=== PATIENT | female | born 1935 | race Caucasian/White ===

== ENCOUNTER 2017-07-06 19:04 | Emergency (ER) | payer MEDICARE, OTHER, SELFPAY ==
[2017-07-06 19:10] VITALS: BP 157/80; PULSE 98; RESP 20; TEMP 38.3; O2SAT 100; BMI 26.1
[2017-07-06 19:51] VITALS: TEMP 37.8
--- NOTE | 2017-07-06 20:12 | PC.NURSE ---
Choked on her antibiotic capsule this morning at about 9am. States she choked up half the capsule, but still has some residual hoarness of the voice. Pt's lung sounds are clear, but upper airway hoarness is heard upon inspiration and expiration.
--- NOTE | 2017-07-06 20:48 | DI.RAD.S_ITS ---
PROCEDURE: XR CHEST 2V INDICATIONS: 82 year-old female with cough. TECHNIQUE: 2 views of the chest were acquired. COMPARISON: [facility], , CHEST 1 VIEW, 04/23/2016, 6:42. [facility], , CHEST 1 VIEW, 04/23/2013, 10:14. [facility], , CHEST 2 VIEW, 06/21/2012, 14:17. FINDINGS: Surgical changes and devices: None. Lungs and pleura: No pleural effusions or pneumothorax. Lungs are clear. Mediastinum: There is large retrocardiac hiatal hernia. Heart size is normal. Bones and chest wall: No suspicious bony abnormalities. There is nonacute nonunited right mid clavicle fracture. There is superior right humeral head migration with narrowed acromiohumeral interval as before. Soft tissues appear unremarkable. IMPRESSION: 1. Large retrocardiac hiatal hernia. No acute cardiopulmonary disease. 2. Nonacute nonunited right mid clavicle fracture. Right shoulder rotator cuff arthropathy. Dictated by: Sixto Fofana M.D. on 07/06/2017 at 21:26 Approved by: Sixto Fofana M.D. on 07/06/2017 at 21:28
--- NOTE | 2017-07-06 20:48 | ED.URI ---
HPI - URI/Sore Throat <GRAHAM aPlma - Last Filed: 07/06/17 22:35> General Chief Complaint: Upper Respiratory Symptoms Stated Complaint: SAYS THERE IS A PILL STUCK IN HER THROAT Time Seen by Provider: 07/06/17 19:30 History of Present Illness HPI Narrative: 82-year-old female here for complaint of pain into her throat area after swallowing and doxycycline pill this morning and states that it got stuck in her throat for a period time before it was finally swallowed fully. She reports feeling the sensation of burning to that area. She is able to swallow well she denies any drooling. She is able to handle her own secretions. She does speak full sentences. No acute distress. She states that she had worsening cough after swallowing the pill in the burning to the area. She states she has had a cough over the past couple of days. Related Data Home Medications Medication Instructions Recorded Confirmed cyclobenzaprine 5 - 10 mg PO TIDP PRN #0 04/23/16 07/06/17 furosemide 10 mg PO QDAY #0 04/23/16 07/06/17 gabapentin [Neurontin] 300 mg PO HS #0 04/23/16 07/06/17 pantoprazole 40 mg PO QDAY #0 04/23/16 07/06/17 potassium chloride [Klor-Con 10] 10 meq PO BID #0 04/23/16 07/06/17 aspirin [Aspir-81] 81 mg PO DAILY 07/06/17 07/06/17 cholecalciferol (vitamin D3) 5,000 unit PO DAILY 07/06/17 07/06/17 [Vitamin D3] clopidogrel 75 mg PO DAILY 07/06/17 07/06/17 doxycycline hyclate 100 mg PO BID 07/06/17 07/06/17 fluticasone [Flonase Allergy 2 spray INTRANASAL DAILY 07/06/17 07/06/17 Relief] hydrocodone-acetaminophen 1 tab PO TID 07/06/17 07/06/17 metoprolol succinate 50 mg PO DAILY 07/06/17 07/06/17 mupirocin 1 applic TOPICAL TID 07/06/17 07/06/17 nystatin 1 applic TOPICAL BID 07/06/17 07/06/17 ondansetron [Zofran ODT] 4 mg PO Q8HR PRN 07/06/17 07/06/17 ranitidine HCl [Zantac] 300 mg PO BEDTIME 07/06/17 07/06/17 simvastatin 20 mg PO QPM 07/06/17 07/06/17 sulfamethoxazole-trimethoprim 1 tab PO BID 07/06/17 07/06/17 terbinafine HCl 250 mg PO DAILY 07/06/17 07/06/17 Previous Rx's Medication Instructions Recorded lidocaine HCl [Lidocaine Viscous] 5 ml PO Q4H PRN 2 Days #100 ml 07/06/17 Allergies Allergy/AdvReac Type Severity Reaction Status Date / Time cefuroxime Allergy Unknown Verified 07/06/17 19:13 clarithromycin Allergy Unknown Verified 07/06/17 19:13 codeine Allergy Unknown Verified 07/06/17 19:13 fluticasone Allergy Unknown Verified 07/06/17 19:13 iodine Allergy Unknown Verified 07/06/17 19:13 levofloxacin Allergy Unknown Verified 07/06/17 19:13 Penicillins Allergy Unknown Verified 07/06/17 19:13 procaine Allergy Unknown Verified 07/06/17 19:13 salmeterol Allergy Unknown Verified 07/06/17 19:13 fentanyl AdvReac Intermediate Confusion Verified 07/06/17 19:14 Review of Systems <GRAHAM Palma - Last Filed: 07/06/17 22:35> Constitutional Denies chills, Denies fever(s), Denies lethargy and Denies weakness Eyes Denies change in vision, Denies eye discharge, Denies irritation and Denies loss of vision ENT Ears, Nose, Mouth, and Throat: Reports sore throat and Denies throat swelling Cardiovascular Denies chest pain, Denies irregular heart rhythm, Denies lightheadedness, Denies palpitations and Denies orthopnea Respiratory Reports cough and Denies wheezing Gastrointestinal Gastrointestinal: Denies abdominal pain, Denies change in bowel habits, Denies diarrhea, Denies nausea and Denies vomiting Genitourinary Denies hematuria, Denies flank pain, Denies urinary incontinence and Denies urinary urgency Musculoskeletal Denies back pain, Denies muscle weakness, Denies numbness and Denies tingling Integumentary/Breasts Denies pruritus, Denies erythema, Denies rash and Denies wounds Neurologic Denies confusion, Denies loss of vision, Denies numbness, Denies tingling and Denies weakness Psychiatric Denies anxiety, Denies confusion, Denies depression, Denies homicidal ideation and Denies suicidal ideation Endocrine Denies palpitations Hematologic/Lymphatic Denies easy bruising Allergic/Immunologic Denies urticaria, Denies throat swelling and Denies wheezing Exam <GRAHAM Palma - Last Filed: 07/06/17 22:35> Initial Vital Signs Initial Vital Signs: Vital Signs Temperature 100.9 F H 07/06/17 19:10 Pulse Rate 98 H 07/06/17 19:10 Respiratory Rate 20 07/06/17 19:10 Blood Pressure 157/80 H 07/06/17 19:10 Pulse Oximetry 100 07/06/17 19:10 Const General: cooperative and well developed Nutritional Appearance: well nourished Orientation: alert, awake and oriented x3 HENMT Mouth: oral mucosae normal, oropharynx normal and moist mucous membranes Eyes General: appearance normal, both eyes and all related structures Eyelids: eyelids normal Conjunctivae: conjunctivae normal Sclera: sclerae normal Pupils: PERRL EOM: EOM intact bilaterally Resp Effort & Inspection: normal respiratory effort, able to speak in complete sentences, no respiratory distress and no use of accessory muscles Auscultation: rales bilaterally, no rhonchi and no wheezes Cardio Rate: regular rate Rhythm: regular rhythm Heart Sounds: no click, no gallops, no murmurs and no rubs Pulses: normal peripheral pulses Skin General: no rashes or lesions noted, No jaundice and No petechiae Neuro General: alert, oriented x3, gait normal and no focal motor deficits Speech: speech normal <Jules Parsons DO - Last Filed: 07/06/17 22:49> Initial Vital Signs Initial Vital Signs: Vital Signs Temperature 100.9 F H 07/06/17 19:10 Pulse Rate 98 H 07/06/17 19:10 Respiratory Rate 20 07/06/17 19:10 Blood Pressure 157/80 H 07/06/17 19:10 Pulse Oximetry 100 07/06/17 19:10 Course <GRAHAM Palma - Last Filed: 07/06/17 22:35> Orders Ordered: ED Orders 07/06/17 20:48 XR chest 2V Stat Discontinued Medications Al Hydrox/Mg Hydrox/Simethicone 20 ml/ Lidocaine HCl 15 ml 0 ml PO NOW ONE Stop: 07/06/17 20:49 Last Admin: 07/06/17 21:36 Dose: 35 ml Vital Signs - 8 hr 07/06/17 19:10 07/06/17 19:51 07/06/17 20:56 Temperature 100.9 F H 100.1 F H 101.6 F H Pulse Rate 98 H 86 Respiratory Rate 20 14 Blood Pressure 157/80 H Blood Pressure [Right Arm] 138/86 H Pulse Oximetry 100 100 07/06/17 22:21 Temperature 99.7 F H Pulse Rate 99 H Respiratory Rate 18 Blood Pressure Blood Pressure [Right Arm] 125/69 H Pulse Oximetry 94 <Jules Parsons DO - Last Filed: 07/06/17 22:49> Orders Ordered: ED Orders 07/06/17 20:48 XR chest 2V Stat Discontinued Medications Al Hydrox/Mg Hydrox/Simethicone 20 ml/ Lidocaine HCl 15 ml 0 ml PO NOW ONE Stop: 07/06/17 20:49 Last Admin: 07/06/17 21:36 Dose: 35 ml Vital Signs - 8 hr 07/06/17 19:10 07/06/17 19:51 07/06/17 20:56 Temperature 100.9 F H 100.1 F H 101.6 F H Pulse Rate 98 H 86 Respiratory Rate 20 14 Blood Pressure 157/80 H Blood Pressure [Right Arm] 138/86 H Pulse Oximetry 100 100 07/06/17 22:21 Temperature 99.7 F H Pulse Rate 99 H Respiratory Rate 18 Blood Pressure Blood Pressure [Right Arm] 125/69 H Pulse Oximetry 94 MDM - URI/Sore Throat <GRAHAM Palma - Last Filed: 07/06/17 22:35> Imaging Data Chest x-ray: Radiologist's impression: PROCEDURE: XR CHEST 2V INDICATIONS: 82 year-old female with cough. TECHNIQUE: 2 views of the chest were acquired. COMPARISON: [facility], CHEST 1 VIEW, 04/23/2016, 6:42. [facility], CHEST 1 VIEW, 04/23/2013, 10:14. [facility], CHEST 2 VIEW, 06/21/2012, 14:17. FINDINGS: Surgical changes and devices: None. Lungs and pleura: No pleural effusions or pneumothorax. Lungs are clear. Mediastinum: There is large retrocardiac hiatal hernia. Heart size is normal. Bones and chest wall: No suspicious bony abnormalities. There is nonacute nonunited right mid clavicle fracture. There is superior right humeral head migration with narrowed acromiohumeral interval as before. Soft tissues appear unremarkable. IMPRESSION: 1. Large retrocardiac hiatal hernia. No acute cardiopulmonary disease. 2. Nonacute nonunited right mid clavicle fracture. Right shoulder rotator cuff arthropathy. Dictated by: Sixto Fofana M.D. on 07/06/2017 at 21:26 Approved by: Sixto Fofana M.D. on 07/06/2017 at 21:28 [facility] Narrative Medical decision making narrative: Patient was given GI cocktail in the emergency room which resolved her symptoms. On exam a rales were heard bilaterally so chest x-ray was obtained and chest x-ray was negative for any acute findings. The patient presented with fever tonight. After her symptoms were resolved patient was in hurry to go home. Discussed with patient concerned about fever and slightly increased heart rate however patient wanted to go home so she stated that she will follow up with the primary care provider in the next couple of dayss to ensure she is doing better. Signs and symptoms presents as viral upper respiratory infection. For any worsening symptoms return to the emergency room. She is prescribed viscous lidocaine to help with her symptoms. Discharge Plan Departure Patient Disposition: Home, Self-Care Clinical Impression: Pill esophagitis Discharge Date/Time: 07/06/17 22:37 Interventions: ED Discharge Assessment Last Done: 07/06/17 22:36 Instructions: DI for Viral Upper Respiratory Infection -- Adult Activity Restrictions/Additional Instructions: Chest x-ray was obtained was negative for any acute findings. She had a fever tonight however due to her recent cough believe this is due to have an upper respiratory infection. drink plenty of fluids. Plenty of rest. Lidocaine has been prescribed to help with any burning sensation from the irritation from the pill use as directed. Follow up with her primary care provider in the next couple of days for re-evaluation to ensure you are getting better. For any worsening symptoms return to the emergency room. Prescriptions: New lidocaine HCl [Lidocaine Viscous] 2 % solution 5 ml PO Q4H PRN (Reason: Throat pain) 2 Days Qty: 100 RF: 0 No Action gabapentin [Neurontin] 300 MG capsule 300 mg PO HS Qty: 0 RF: 0 furosemide 20 MG tablet 10 mg PO QDAY Qty: 0 RF: 0 pantoprazole 40 MG tablet,delayed release (DR/EC) 40 mg PO QDAY Qty: 0 RF: 0 potassium chloride [Klor-Con 10] 10 MEQ tablet extended release 10 meq PO BID Qty: 0 RF: 0 cyclobenzaprine 10 MG tablet 5 - 10 mg PO TIDP PRN (Reason: Muscle Spasm) Qty: 0 RF: 0 doxycycline hyclate 100 mg Capsule 100 mg PO BID RF: 0 clopidogrel 75 mg Tablet 75 mg PO DAILY RF: 0 aspirin [Aspir-81] 81 mg Tablet,Delayed Release (Dr/Ec) 81 mg PO DAILY RF: 0 metoprolol succinate 50 mg Tablet Extended Release 24 Hr 50 mg PO DAILY RF: 0 ranitidine HCl [Zantac] 300 mg Tablet 300 mg PO BEDTIME RF: 0 sulfamethoxazole-trimethoprim 800-160 mg Tablet 1 tab PO BID RF: 0 hydrocodone-acetaminophen 10-325 mg Tablet 1 tab PO TID RF: 0 terbinafine HCl 250 mg Tablet 250 mg PO DAILY RF: 0 simvastatin 20 mg Tablet 20 mg PO QPM RF: 0 nystatin 100,000 unit/gram Cream 1 applic TOPICAL BID RF: 0 mupirocin 2 % Ointment 1 applic TOPICAL TID RF: 0 ondansetron [Zofran ODT] 4 mg Tablet,Disintegrating 4 mg PO Q8HR PRN (Reason: Nausea) RF: 0 fluticasone [Flonase Allergy Relief] 50 mcg/actuation [place],Suspension 2 spray INTRANASAL DAILY RF: 0 cholecalciferol (vitamin D3) [Vitamin D3] 5,000 unit Tablet 5,000 unit PO DAILY RF: 0 Referrals: Wilfredo Sofia MD [Primary Care Provider] - <Jules Parsons DO - Last Filed: 07/06/17 22:49> Cosign ED Attending Cosjamalature Attestation: I was available for consultation during this patient's emergency department encounter
[2017-07-06 20:56] VITALS: BP 138/86; PULSE 86; RESP 14; TEMP 38.7; O2SAT 100
[2017-07-06] MEDS: MAG HYDROX/ALUMINUM/SIMETH SUS 20 ML, LIDOCAINE VISCOUS 2% 15 ML PO (21:36)
[2017-07-06 22:21] VITALS: BP 125/69; PULSE 99; RESP 18; TEMP 37.6; O2SAT 94
== END 2017-07-06 22:37 | disposition home or self-care (01) ==
PROVIDERS: Emergency Provider Nurse Practitioner Family; PCP Internal Medicine
DX: T18.108A Unspecified foreign body in esophagus causing other injury, initial encounter (principal); R05 Cough; R09.89 Other specified symptoms and signs involving the circulatory and respiratory systems
CPT/HCPCS: 71046; 99283

== ENCOUNTER → 2017-08-26 14:32 | Outpatient (CLI) | payer MEDICARE, OTHER, SELFPAY ==
--- NOTE | 2017-08-26 | DI.RAD.S_ITS ---
PROCEDURE: XR CHEST 2V INDICATIONS: COUGH TECHNIQUE: 2 views of the chest were acquired. COMPARISON: [facility], , XR CHEST 2V, 07/06/2017, 20:38. [facility], , CHEST 1 VIEW, 04/23/2016, 6:42. [facility], , CHEST 1 VIEW, 04/23/2013, 10:14. FINDINGS: Surgical changes and devices: None. Lungs and pleura: No pleural effusions or pneumothorax. Lungs are clear. Mediastinum: Mediastinal contours are normal except for a moderately large hiatal hernia behind the heart. Heart size is normal. Bones and chest wall: No suspicious bony abnormalities. Soft tissues appear unremarkable. IMPRESSION: Moderately large hiatal hernia behind the heart containing air-fluid level. This can predispose to aspiration. No pneumonia found. Dictated by: Artur Almonte M.D. on 08/26/2017 at 15:03 Approved by: Artur Almonte M.D. on 08/26/2017 at 15:03
== END ==
PROVIDERS: PCP Internal Medicine; Visit Provider Student in an Organized Health Care Education/Training Program
DX: R05 Cough (principal); K44.9 Diaphragmatic hernia without obstruction or gangrene
CPT/HCPCS: 71046

== ENCOUNTER 2017-09-14 23:46 | Emergency (ER) | payer MEDICARE, OTHER, SELFPAY ==
[2017-09-14 23:53] VITALS: BP 109/60; PULSE 73; RESP 16; TEMP 36.7; O2SAT 100; BMI 27.4
--- NOTE | 2017-09-14 23:56 | ED_ITS ---
HPI - Extremity Injury (Lower) General Chief Complaint: Extremity Injury, Lower Stated Complaint: RLE numbness Time Seen by Provider: 09/14/17 23:47 Source: patient Mode of arrival: EMS Limitations: no limitations History of Present Illness HPI Narrative: 82-year-old female brought in by EMS for concerns of right lower extremity numbness. Patient states that the numbness started sometime today. She does not know the exact time. However she states that her right lower extremity has been ?feeling funny ?for couple days now. She states that she is numb from the knee down. No trauma. Has had some back pain in the past. Does have right hip pain. 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 Denies any changes in bowel or urine. No skin changes. No headache. Related Data Home Medications Medication Instructions Recorded Confirmed cyclobenzaprine 5 - 10 mg PO TIDP PRN #0 04/23/16 09/15/17 furosemide 10 mg PO QDAY #0 04/23/16 09/15/17 gabapentin [Neurontin] 300 mg PO HS #0 04/23/16 09/15/17 pantoprazole 40 mg PO QDAY #0 04/23/16 09/15/17 potassium chloride [Klor-Con 10] 10 meq PO BID #0 04/23/16 09/15/17 aspirin [Aspir-81] 81 mg PO DAILY 07/06/17 09/15/17 cholecalciferol (vitamin D3) 5,000 unit PO DAILY 07/06/17 09/15/17 [Vitamin D3] clopidogrel 75 mg PO DAILY 07/06/17 09/15/17 doxycycline hyclate 100 mg PO BID 07/06/17 09/15/17 fluticasone [Flonase Allergy 2 spray INTRANASAL DAILY 07/06/17 09/15/17 Relief] hydrocodone-acetaminophen 1 tab PO TID 07/06/17 09/15/17 metoprolol succinate 50 mg PO DAILY 07/06/17 09/15/17 mupirocin 1 applic TOPICAL TID 07/06/17 09/15/17 nystatin 1 applic TOPICAL BID 07/06/17 09/15/17 ondansetron [Zofran ODT] 4 mg PO Q8HR PRN 07/06/17 09/15/17 ranitidine HCl [Zantac] 300 mg PO BEDTIME 07/06/17 09/15/17 simvastatin 20 mg PO QPM 07/06/17 09/15/17 Allergies Allergy/AdvReac Type Severity Reaction Status Date / Time cefuroxime Allergy Unknown Verified 07/06/17 19:13 clarithromycin Allergy Unknown Verified 07/06/17 19:13 codeine Allergy Unknown Verified 07/06/17 19:13 fluticasone Allergy Unknown Verified 07/06/17 19:13 iodine Allergy Unknown Verified 07/06/17 19:13 levofloxacin Allergy Unknown Verified 07/06/17 19:13 Penicillins Allergy Unknown Verified 07/06/17 19:13 povidone-iodine Allergy Unknown Verified 09/15/17 00:04 [From Betadine] procaine Allergy Unknown Verified 07/06/17 19:13 salmeterol Allergy Unknown Verified 07/06/17 19:13 soap [From Betadine] Allergy Unknown Verified 09/15/17 00:04 fentanyl AdvReac Intermediate Confusion Verified 07/06/17 19:14 vancomycin [From Vancocin] AdvReac Intermediate Rash Verified 09/15/17 00:04 Review of Systems Constitutional Denies fatigue and Denies fever(s) ENT Ears, Nose, Mouth, and Throat: Denies vertigo and Denies dizziness Cardiovascular Denies chest pain, Denies syncope and Denies dyspnea Respiratory Denies cough and Denies dyspnea Gastrointestinal Gastrointestinal: Denies abdominal pain, Denies nausea and Denies vomiting Genitourinary Denies dysuria Musculoskeletal Comments: Right hip pain, pain down the outside of her right leg. Numbness from the knee down Integumentary/Breasts Denies lesions and Denies rash Neurologic Denies vertigo, Denies dizziness and Denies syncope Endocrine Denies fatigue Hematologic/Lymphatic Denies easy bleeding and Denies easy bruising [facility] Medical History Diabetes (Acute) History of left above knee amputation (Acute) Hypertension (Acute) Social History Smoking Status: Never smoker Exam Initial Vital Signs Initial Vital Signs: Vital Signs Temperature 98.1 F 09/14/17 23:53 Pulse Rate 73 09/14/17 23:53 Respiratory Rate 16 09/14/17 23:53 Blood Pressure 109/60 09/14/17 23:53 Pulse Oximetry 100 09/14/17 23:53 Const General: cooperative, healthy appearing, comfortable, well developed, well groomed and No in distress Orientation: alert, awake and oriented x3 HENMT Head: normal to inspection and normocephalic Cardio Pulses: dorsalis pedis present on the right Skin Other: Multiple skin lesions right lower extremity. No surrounding erythema. No blisters. Patient states this is a ?parasitic ?infection. Neuro General: alert, awake and oriented x3 Cognition: normal cognition Speech: speech normal Other: Patient with decreased sensation to light touch circumferential from just distal to the right knee to the toes. Extrem Other: Left [id number] amputation No gross deformities right lower extremity. Patient able to actively flex and extend at the hip and at the knee and at the ankle right lower extremity Psych Appearance: grossly normal and well kempt Course Vital Signs - 8 hr 09/14/17 23:53 09/15/17 00:25 Temperature 98.1 F Pulse Rate 73 73 Respiratory Rate 16 16 Blood Pressure 109/60 98/70 Pulse Oximetry 100 100 MDM - Extremity Injury (Lower) MDM Narrative Medical decision making narrative: Patient with circumferential numbness subjectively from just distal to the knee to the toes right lower extremity. Does seem to have full range of motion of the right hip and right knee. Has had back pain in the past however her symptoms tonight do not follow any specific nerve distribution. Her physical exam is not consistent with a DVT. Is not consistent with a CVA. Patient has a follow-up appointment with her primary doctor tomorrow. Will hold on further workup for now. She was given return precautions. She was instructed she needs to discuss her symptoms with her primary doctor and discuss the possibility of starting a medication such as Neurontin which she states she is not taking or further radiologic studies such as an MRI. Discharge Plan Departure Patient Disposition: Home, Self-Care Clinical Impression: Neuropathy Interventions: ED Discharge Assessment Last Done: 09/15/17 00:25 Instructions: DI for Peripheral Neuropathy Activity Restrictions/Additional Instructions: Keep your appointment that she has scheduled with her primary care doctor tomorrow. Discussed with them the indications for starting either anti inflammatory or another medications such as Neurontin or Lyrica. Also discussed with them the indications for other radiologic studies to include MRIs if this is necessary. Continue all of your medications. Return to the emergency department for any new or worsening symptoms Prescriptions: No Action gabapentin [Neurontin] 300 MG capsule 300 mg PO HS Qty: 0 RF: 0 furosemide 20 MG tablet 10 mg PO QDAY Qty: 0 RF: 0 pantoprazole 40 MG tablet,delayed release (DR/EC) 40 mg PO QDAY Qty: 0 RF: 0 potassium chloride [Klor-Con 10] 10 MEQ tablet extended release 10 meq PO BID Qty: 0 RF: 0 cyclobenzaprine 10 MG tablet 5 - 10 mg PO TIDP PRN (Reason: Muscle Spasm) Qty: 0 RF: 0 doxycycline hyclate 100 mg Capsule 100 mg PO BID RF: 0 clopidogrel 75 mg Tablet 75 mg PO DAILY RF: 0 aspirin [Aspir-81] 81 mg Tablet,Delayed Release (Dr/Ec) 81 mg PO DAILY RF: 0 metoprolol succinate 50 mg Tablet Extended Release 24 Hr 50 mg PO DAILY RF: 0 ranitidine HCl [Zantac] 300 mg Tablet 300 mg PO BEDTIME RF: 0 hydrocodone-acetaminophen 10-325 mg Tablet 1 tab PO TID RF: 0 simvastatin 20 mg Tablet 20 mg PO QPM RF: 0 nystatin 100,000 unit/gram Cream 1 applic TOPICAL BID RF: 0 mupirocin 2 % Ointment 1 applic TOPICAL TID RF: 0 ondansetron [Zofran ODT] 4 mg Tablet,Disintegrating 4 mg PO Q8HR PRN (Reason: Nausea) RF: 0 fluticasone [Flonase Allergy Relief] 50 mcg/actuation [place],Suspension 2 spray INTRANASAL DAILY RF: 0 cholecalciferol (vitamin D3) [Vitamin D3] 5,000 unit Tablet 5,000 unit PO DAILY RF: 0
--- NOTE | 2017-09-14 23:56 | PC.NURSE ---
Pt reports around 2315 experiencing RLE numbness, denies pain, reports she was unable to feel EMS applying sensation to bottom of foot, able to wiggle toes, 2+ pedal pulse. 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
[2017-09-15 00:25] VITALS: BP 98/70; PULSE 73; RESP 16; O2SAT 100
== END 2017-09-15 00:40 | disposition home or self-care (01) ==
PROVIDERS: Emergency Provider Emergency Medicine; PCP Internal Medicine
DX: G62.9 Polyneuropathy, unspecified (principal)
CPT/HCPCS: 99283

== ENCOUNTER 2018-02-27 12:06 | Emergency (ER) | payer MEDICARE, OTHER, SELFPAY ==
[2018-02-27] VITALS (7 sets, daily range): BP systolic 116–165; BP diastolic 70–118; PULSE 96–120; RESP 18–25; TEMP 36.7–37.2; O2SAT 92–98; BMI 21.6
--- NOTE | 2018-02-27 12:29 | RT ---
Difficult EKG, pt moans and sits up. I needed help from staff removing bra (tight sports bra). Results given to Dr. Enriquez.
--- NOTE | 2018-02-27 12:32 | ED.ABDPAIN ---
HPI - Abdominal Pain <GRAHAM Palma - Last Filed: 02/27/18 17:29> General Chief Complaint: Abdominal Pain Stated Complaint: out of hydrocodone, abd pain Time Seen by Provider: 02/27/18 12:07 Source: patient Mode of arrival: EMS Limitations: no limitations History of Present Illness HPI narrative: 82-year-old female with history of hypertension and diabetes that is nonsmoker here for complaint of abdominal pain that started earlier this morning. She states she was out feeding horses when pain started to her epigastric area and radiating over into the right abdomen and into the bilateral shoulders. Denies any trauma to the area. No fevers no chills. Last p.o. intake was breakfast this morning which she tolerated. No nausea vomiting. Last bowel movement was 2 days ago and she states that is not a normal for her. She denies any urinary symptoms. No stressors or relievers of her symptoms. She denies any flank pain. She reports having a history of ventral hernias and hysterectomy. Related Data Home Medications Medication Instructions Recorded Confirmed gabapentin [Neurontin] 300 mg PO HS #0 04/23/16 02/27/18 pantoprazole 40 mg PO BID #0 04/23/16 02/27/18 potassium chloride [Klor-Con 10] 10 meq PO BID #0 04/23/16 02/27/18 aspirin [Aspir-81] 81 mg PO DAILY 07/06/17 09/15/17 cholecalciferol (vitamin D3) 5,000 unit PO DAILY 07/06/17 09/15/17 [Vitamin D3] clopidogrel 75 mg PO DAILY 07/06/17 09/15/17 doxycycline hyclate 100 mg PO BID 07/06/17 02/27/18 fluticasone [Flonase Allergy 2 spray INTRANASAL DAILY 07/06/17 09/15/17 Relief] hydrocodone-acetaminophen 1 tab PO TID 07/06/17 02/27/18 metoprolol succinate 50 mg PO DAILY 07/06/17 09/15/17 mupirocin 1 applic TOPICAL TID 07/06/17 09/15/17 nystatin 1 applic TOPICAL BID 07/06/17 09/15/17 ranitidine HCl [Zantac] 300 mg PO BEDTIME 07/06/17 02/27/18 simvastatin 20 mg PO QPM 07/06/17 02/27/18 amitriptyline 50 - 100 mg PO BEDTIME PRN 02/27/18 02/27/18 amlodipine 5 mg PO [id number] 02/27/18 02/27/18 camphor-eucalyptus oil-menthol 1 applic TOPICAL PRN PRN 02/27/18 02/27/18 [Vicks Vaporub] diphenhydramine HCl [Benadryl Itch 1 applic TOPICAL TID-QID PRN 02/27/18 02/27/18 Stopping] diphenhydramine-zinc acetate 1 applic TOPICAL QID PRN 02/27/18 02/27/18 [Benadryl Itch Stopping] lidocaine HCl 5 ml MUCOUS MEMBRANE Q4H PRN 02/27/18 02/27/18 fokrsofc-hpbknbcur-eqceolevq 1 applic TOPICAL PRN PRN 02/27/18 02/27/18 [Neosporin + Pain Relief] ondansetron 8 mg PO Q8H PRN 02/27/18 02/27/18 quetiapine 25 mg PO DAILY 02/27/18 02/27/18 Allergies Allergy/AdvReac Type Severity Reaction Status Date / Time cefuroxime Allergy Unknown Verified 02/27/18 12:20 clarithromycin Allergy Unknown Verified 02/27/18 12:20 codeine Allergy Unknown Verified 02/27/18 12:20 fluticasone Allergy Unknown Verified 02/27/18 12:20 iodine Allergy Unknown Verified 02/27/18 12:20 levofloxacin Allergy Unknown Verified 02/27/18 12:20 Penicillins Allergy Unknown Verified 02/27/18 12:20 povidone-iodine Allergy Unknown Verified 02/27/18 12:20 [From Betadine] procaine Allergy Unknown Verified 02/27/18 12:20 salmeterol Allergy Unknown Verified 02/27/18 12:20 soap [From Betadine] Allergy Unknown Verified 02/27/18 12:20 fentanyl AdvReac Intermediate Confusion Verified 02/27/18 12:20 vancomycin [From Vancocin] AdvReac Intermediate Rash Verified 02/27/18 12:20 Review of Systems <GRAHAM Palma - Last Filed: 02/27/18 17:29> Constitutional Denies chills, Denies fever(s), Denies lethargy and Denies weakness ENT Ears, Nose, Mouth, and Throat: Denies change in voice, Denies neck pain and Denies sore throat Cardiovascular Denies chest pain, Denies irregular heart rhythm, Denies lightheadedness, Denies palpitations, Denies dyspnea, Denies dyspnea on exertion and Denies orthopnea Respiratory Denies cough, Denies dyspnea, Denies dyspnea on exertion and Denies wheezing Gastrointestinal Gastrointestinal: Denies abdominal pain, Denies change in bowel habits, Denies diarrhea, Denies nausea and Denies vomiting Comments: Epigastric pain radiating to the right abdomen and to bilateral shoulders Genitourinary Denies hematuria, Denies flank pain, Denies urinary incontinence and Denies urinary urgency Musculoskeletal Denies neck pain Integumentary/Breasts Denies pruritus, Denies erythema, Denies rash and Denies wounds Neurologic Denies confusion and Denies weakness Psychiatric Denies anxiety, Denies confusion, Denies depression, Denies homicidal ideation and Denies suicidal ideation Endocrine Denies palpitations Hematologic/Lymphatic Denies easy bruising Allergic/Immunologic Denies wheezing Exam <GRAHAM Palma - Last Filed: 02/27/18 17:29> Initial Vital Signs Initial Vital Signs: Vital Signs Temperature 98.0 F 02/27/18 12:17 Pulse Rate 96 H 02/27/18 12:17 Respiratory Rate 23 02/27/18 12:17 Blood Pressure 149/70 H 02/27/18 12:17 Pulse Oximetry 92 02/27/18 12:17 Const General: cooperative and well developed Nutritional Appearance: well nourished Orientation: alert, awake, oriented x3 and not confused [facility] Mouth: oral mucosae normal and moist mucous membranes Eyes Conjunctivae: conjunctivae normal Sclera: sclerae normal Pupils: PERRL EOM: EOM intact bilaterally Resp Effort & Inspection: normal respiratory effort, able to speak in complete sentences, no respiratory distress and no use of accessory muscles Auscultation: clear to auscultation bilaterally, no rales, no rhonchi and no wheezes Cardio Rate: regular rate Rhythm: regular rhythm Heart Sounds: no click, no gallops, no murmurs and no rubs Pulses: normal peripheral pulses GI Inspection: non-distended Palpation: soft, no hepatosplenomegaly, No guarding, hernia, No pulsatile mass and tender (Tenderness to the epigastric area and also to right upper quadrant) Auscultation: normal bowel sounds General: No CVA tenderness Skin General: no rashes or lesions noted, No jaundice and No petechiae Neuro General: alert, oriented x3, gait normal and no focal motor deficits Speech: speech normal <Reyna Collins MD - Last Filed: 02/27/18 19:11> Initial Vital Signs Initial Vital Signs: Vital Signs Temperature 98.0 F 02/27/18 12:17 Pulse Rate 96 H 02/27/18 12:17 Respiratory Rate 23 02/27/18 12:17 Blood Pressure 149/70 H 02/27/18 12:17 Pulse Oximetry 92 02/27/18 12:17 Course <GRAHAM Palma - Last Filed: 02/27/18 17:29> Orders Ordered: ED Orders 02/27/18 12:30 Complete Blood Count AUTO DIFF Stat Comprehensive Metabolic Panel Stat Lipase Stat Procalcitonin Stat Troponin & CK Cardiac Panel Stat 02/27/18 12:39 CT angio chest PE protocol Stat 02/27/18 12:40 CT abdomen pelvis w con Stat 02/27/18 14:55 Urine Microscopic Stat 02/27/18 15:40 Blood Culture Stat Discontinued Medications Hydromorphone HCl (Dilaudid) 1 mg IV NOW ONE Stop: 02/27/18 12:40 Last Admin: 02/27/18 12:52 Dose: 1 mg Hydromorphone HCl (Dilaudid) 0.5 mg IV NOW ONE Stop: 02/27/18 14:11 Last Admin: 02/27/18 14:25 Dose: 0.5 mg Hydromorphone HCl (Dilaudid) 0.5 mg IV NOW ONE Stop: 02/27/18 15:29 Last Admin: 02/27/18 15:40 Dose: 0.5 mg Hydromorphone HCl (Dilaudid) 1 mg IV NOW ONE Stop: 02/27/18 16:49 Last Admin: 02/27/18 16:53 Dose: 1 mg Hydromorphone HCl (Dilaudid) 1 mg IV NOW ONE Stop: 02/27/18 17:59 Last Admin: 02/27/18 17:59 Dose: 1 mg Sodium Chloride (Normal Saline 0.9%) 1,000 mls @ 1,000 mls/hr IV BOLUS ONE Stop: 02/27/18 13:38 Last Infusion: 02/27/18 14:45 Dose: 0 mls/hr Admin: 02/27/18 12:52 Dose: 1,000 mls/hr Ertapenem 1 gm/ Sodium (Chloride) 100 mls @ 200 mls/hr IV NOW ONE Stop: 02/27/18 14:11 Last Infusion: 02/27/18 15:10 Dose: 0 mls/hr Admin: 02/27/18 14:26 Dose: 200 mls/hr Sodium Chloride (Normal Saline 0.9%) 1,000 mls @ 100 mls/hr IV CONT ADA Last Infusion: 02/27/18 18:29 Dose: 0 mls/hr Admin: 02/27/18 15:38 Dose: 100 mls/hr Ondansetron HCl (Zofran) 4 mg IV NOW ONE Stop: 02/27/18 12:40 Last Admin: 02/27/18 12:53 Dose: 4 mg Ondansetron HCl (Zofran) 4 mg IV NOW ONE Stop: 02/27/18 17:59 Last Admin: 02/27/18 17:59 Dose: 4 mg Vital Signs - 8 hr 02/27/18 12:17 02/27/18 13:00 02/27/18 13:30 Temperature 98.0 F Pulse Rate 96 H 99 H Respiratory Rate 23 25 H 24 Blood Pressure 149/70 H Blood Pressure [Left Arm] 116/83 121/93 H Pulse Oximetry 92 95 02/27/18 14:43 02/27/18 16:00 02/27/18 16:12 Temperature 99.0 F 99.0 F Pulse Rate 104 H 118 H 98 H Respiratory Rate 18 23 Blood Pressure Blood Pressure [Left Arm] 126/84 165/118 H Pulse Oximetry 96 97 02/27/18 17:46 Temperature Pulse Rate 120 H Respiratory Rate 19 Blood Pressure Blood Pressure [Left Arm] 144/104 H Pulse Oximetry 98 <Reyna Collins MD - Last Filed: 02/27/18 19:11> Orders Ordered: ED Orders 02/27/18 12:30 Complete Blood Count AUTO DIFF Stat Comprehensive Metabolic Panel Stat Lipase Stat Procalcitonin Stat Troponin & CK Cardiac Panel Stat 02/27/18 12:39 CT angio chest PE protocol Stat 02/27/18 12:40 CT abdomen pelvis w con Stat 02/27/18 14:55 Urine Microscopic Stat 02/27/18 15:40 Blood Culture Stat Discontinued Medications Hydromorphone HCl (Dilaudid) 1 mg IV NOW ONE Stop: 02/27/18 12:40 Last Admin: 02/27/18 12:52 Dose: 1 mg Hydromorphone HCl (Dilaudid) 0.5 mg IV NOW ONE Stop: 02/27/18 14:11 Last Admin: 02/27/18 14:25 Dose: 0.5 mg Hydromorphone HCl (Dilaudid) 0.5 mg IV NOW ONE Stop: 02/27/18 15:29 Last Admin: 02/27/18 15:40 Dose: 0.5 mg Hydromorphone HCl (Dilaudid) 1 mg IV NOW ONE Stop: 02/27/18 16:49 Last Admin: 02/27/18 16:53 Dose: 1 mg Hydromorphone HCl (Dilaudid) 1 mg IV NOW ONE Stop: 02/27/18 17:59 Last Admin: 02/27/18 17:59 Dose: 1 mg Sodium Chloride (Normal Saline 0.9%) 1,000 mls @ 1,000 mls/hr IV BOLUS ONE Stop: 02/27/18 13:38 Last Infusion: 02/27/18 14:45 Dose: 0 mls/hr Admin: 02/27/18 12:52 Dose: 1,000 mls/hr Ertapenem 1 gm/ Sodium (Chloride) 100 mls @ 200 mls/hr IV NOW ONE Stop: 02/27/18 14:11 Last Infusion: 02/27/18 15:10 Dose: 0 mls/hr Admin: 02/27/18 14:26 Dose: 200 mls/hr Sodium Chloride (Normal Saline 0.9%) 1,000 mls @ 100 mls/hr IV CONT ADA Last Infusion: 02/27/18 18:29 Dose: 0 mls/hr Admin: 02/27/18 15:38 Dose: 100 mls/hr Ondansetron HCl (Zofran) 4 mg IV NOW ONE Stop: 02/27/18 12:40 Last Admin: 02/27/18 12:53 Dose: 4 mg Ondansetron HCl (Zofran) 4 mg IV NOW ONE Stop: 02/27/18 17:59 Last Admin: 02/27/18 17:59 Dose: 4 mg Vital Signs - 8 hr 02/27/18 12:17 02/27/18 13:00 02/27/18 13:30 Temperature 98.0 F Pulse Rate 96 H 99 H Respiratory Rate 23 25 H 24 Blood Pressure 149/70 H Blood Pressure [Left Arm] 116/83 121/93 H Pulse Oximetry 92 95 02/27/18 14:43 02/27/18 16:00 02/27/18 16:12 Temperature 99.0 F 99.0 F Pulse Rate 104 H 118 H 98 H Respiratory Rate 18 23 Blood Pressure Blood Pressure [Left Arm] 126/84 165/118 H Pulse Oximetry 96 97 02/27/18 17:46 Temperature Pulse Rate 120 H Respiratory Rate 19 Blood Pressure Blood Pressure [Left Arm] 144/104 H Pulse Oximetry 98 MDM - Abdominal Pain <GRAHAM Palma - Last Filed: 02/27/18 17:29> Differential Diagnosis Differential diagnosis: Likely abdominal pain Lab Data Result diagrams: 02/27/18 12:30 02/27/18 12:30 Lab Results 02/27/18 02/27/18 02/27/18 Range/Units 12:30 12:30 12:30 WBC 8.8 (4.5-11.0) X10^3/uL RBC 5.01 (4.0-5.2) X10^6/uL Hgb 9.6 L (12.0-16.0) g/dL Hct 31.9 L (36-46) % MCV 63.7 L (80-100) fL MCH 19.1 L (26-34) PG MCHC 30.0 (30-36) % RDW 19.6 H (11.6-14.8) % Plt Count 282 (150-400) X10^3/uL Neut % (Auto) Not Reportable Lymph % (Auto) Not Reportable [place] % (Auto) Not Reportable Eos % (Auto) Not Reportable Baso % (Auto) Not Reportable Lymph # (Auto) Not Reportable [place] # (Auto) Not Reportable Baso # (Auto) Not Reportable Total Counted 100 Seg Neutrophils % 76.0 H (38-70) % Band Neutrophils % 6.0 (3-7) % Lymphocytes % (Manual) 11.0 L (25-45) % Monocytes % (Manual) 6.0 (2-11) % Basophils % (Manual) 1.0 (0-1) % Neutrophils # (Manual) 7216 H (9428-7662) /uL RBC Morphology See below Hypochromasia 3+ H Anisocytosis 1+ H Microcytosis 2+ H Sodium 136 L (137-145) mmol/L Potassium 4.5 (3.4-5.1) mmol/L Chloride 100 (98-107) mmol/L Carbon Dioxide 27 (22-32) mmol/L BUN 17 (7-17) mg/dL Creatinine 0.80 (0.52-1.04) mg/dL Estimated GFR > 60.0 (>60) mL/min BUN/Creatinine Ratio 21.3 (6-22) Glucose 135 H (80-110) mg/dL Calcium 10.2 (8.4-10.2) mg/dL Total Bilirubin 0.3 (0.2-1.3) mg/dL AST 23 (14-36) IU/L ALT 24 (9-52) IU/L Alkaline Phosphatase 120 (38-126) U/L Total Creatine Kinase 32 (30-135) U/L CK-MB (CK-2) TNP CK-MB (CK-2) Rel Index TNP Troponin I < 0.012 (0.01-0.034) ng/mL Total Protein 7.0 (6.3-8.2) g/dL Albumin 4.1 (3.5-5.0) g/dL Globulin 2.9 (1.7-4.1) g/dL Albumin/Globulin Ratio 1.4 (1.0-2.8) Lipase 323 H (23-300) U/L Procalcitonin < 0.05 (<0.5) ng/mL Urine RBC (0-5/HPF) Urine WBC (0-5/HPF) Ur Squamous Epith Cells Urine Bacteria (None) Ur Culture Indicated? 02/27/18 Range/Units 14:55 WBC (4.5-11.0) X10^3/uL RBC (4.0-5.2) X10^6/uL Hgb (12.0-16.0) g/dL Hct (36-46) % MCV (80-100) fL MCH (26-34) PG MCHC (30-36) % RDW (11.6-14.8) % Plt Count (150-400) X10^3/uL Neut % (Auto) Lymph % (Auto) [place] % (Auto) Eos % (Auto) Baso % (Auto) Lymph # (Auto) [place] # (Auto) Baso # (Auto) Total Counted Seg Neutrophils % (38-70) % Band Neutrophils % (3-7) % Lymphocytes % (Manual) (25-45) % Monocytes % (Manual) (2-11) % Basophils % (Manual) (0-1) % Neutrophils # (Manual) (4894-6597) /uL RBC Morphology Hypochromasia Anisocytosis Microcytosis Sodium (137-145) mmol/L Potassium (3.4-5.1) mmol/L Chloride (98-107) mmol/L Carbon Dioxide (22-32) mmol/L BUN (7-17) mg/dL Creatinine (0.52-1.04) mg/dL Estimated GFR (>60) mL/min BUN/Creatinine Ratio (6-22) Glucose (80-110) mg/dL Calcium (8.4-10.2) mg/dL Total Bilirubin (0.2-1.3) mg/dL AST (14-36) IU/L ALT (9-52) IU/L Alkaline Phosphatase (38-126) U/L Total Creatine Kinase (30-135) U/L CK-MB (CK-2) CK-MB (CK-2) Rel Index Troponin I (0.01-0.034) ng/mL Total Protein (6.3-8.2) g/dL Albumin (3.5-5.0) g/dL Globulin (1.7-4.1) g/dL Albumin/Globulin Ratio (1.0-2.8) Lipase (23-300) U/L Procalcitonin (<0.5) ng/mL Urine RBC 1-5/hpf (0-5/HPF) Urine WBC 10-30/hpf H (0-5/HPF) Ur Squamous Epith Cells 5-10 /hpf H Urine Bacteria Many (>30) H (None) Ur Culture Indicated? Cult not indicated Point of care testing: Point of Care Testing Glucose POC 158 Urine Dip Bedside Urine Glucose Negative Bedside Urine Bilirubin - Negative Bedside Urine Ketone - Negative Urine Specific [place] 1.010 Bedside Urine Occult Blood +/- Bedside Urine pH 8.5 Bedside Urine Protein +/- 15 Bedside Urine Urobilinogen - Negative Bedside Urine Nitrite + Positive Bedside Urine Leukocytes +++ [address] scan - abdomen: Radiologist's impression: [address] [address] [address] Scan Report Signed Patient: Rowan Guerra EMR#: [id number] : 7Acct:[id number] Age/Sex: 82 / FDate of Service: 02/27/18 Loc: ED Accession Number: [id number] Procedure: CT abdomen pelvis w con Ordering Provider: Rich Enriquez PROCEDURE: CT ABDOMEN PELVIS W CON INDICATIONS: Epigastric, right lower quadrant pain TECHNIQUE: After the administration of intravenous contrast, 5 mm thick sections acquired from the diaphragm to the symphysis. 5 mm coronal and sagittal reformats were acquired. For radiation dose reduction, the following was used: automated exposure control, adjustment of mA and/or kV according to patient size. COMPARISON: [facility], CT, PE STUDY (CTA CHEST), 04/23/2013, 10:51. [facility], CT, CT ANGIO CHEST PE PROTOCOL, 02/27/2018, 13:06. [facility], CT, ABDOMEN/PELVIS WITH CONTRAST, 04/23/2016, 8:41. FINDINGS: Image quality: Excellent. ABDOMEN: Lung bases: Lung bases are clear. Heart size is normal. Solid organs: Liver is normal in size and enhancement. Gallbladder has been previously resected. Biliary system is mildly dilated with the common bile duct measuring up to 1.3 cm in maximal transverse dimension. Pancreas enhances normally. Spleen is normal in size and enhancement. No adrenal nodules. Kidneys demonstrate normal size and enhancement, without hydronephrosis. Peritoneum and bowel: Small bowel loops demonstrate normal wall thickness and caliber but the right colon near the right upper quadrant appears mildly wall thickening and there is adjacent omental and pericolonic edema. There is definitely a present a small amount of free fluid and free air, best seen at the right upper quadrant. This is near the area of omental thickening discussed above. Small gas bubbles are seen in the pre-hepatic space, the fissure for the falciform ligament, anterior to the gastric antrum, and possibly adjacent to the proximal transverse duodenum versus duodenal diverticulum at that site. Nodes and vessels: No retroperitoneal or mesenteric adenopathy by size criteria. Aorta and inferior vena cava are normal in size. Miscellaneous: A previously identified ventral omental hernia is again seen without evidence of incarceration or strangulation extending through a peritoneal defect measuring up to 1.5 cm, periumbilical.. PELVIS: Genitourinary: Bladder wall thickness is normal. Miscellaneous: No inguinal hernias or adenopathy. Bones: No suspicious bony lesions. No vertebral body compression fractures. IMPRESSION: 1. Free fluid and free air is present, definite, but source is indeterminate. As discussed above this is predominantly in the right upper quadrant and includes gas adjacent to the gastric antrum, pre-hepatic space, fissure for the falciform ligament, and posterior margin of the left hepatic lobe. Note is made of associated mild right colonic mural thickening. This may be reactive in origin. Intestinal obstruction with poor distention is not associated. 2. Ventral periumbilical omental hernia, previously present, without evidence of incarceration or strangulation. 3. Prior cholecystectomy. Mild prominence of the adjacent common bile duct and intrahepatic bile ducts. A calcified ductal stone is not found. A biliary or pancreatic mass is not identified. Dictated by: Artur Almonte M.D. on 02/27/2018 at 13:38 Approved by: Artur Almonte M.D. on 02/27/2018 at 13:51 CT scan - chest: Radiologist's impression: [place] [address] CT Scan Report Signed Patient: Rowan Guerra EMR#: [id number] : 7Acct:[id number] Age/Sex: 82 / FDate of Service: 02/27/18 Loc: ED Accession Number: [id number] Procedure: CT angio chest PE protocol Ordering Provider: Rich Enriquez PROCEDURE: CT ANGIO CHEST PE PROTOCOL INDICATIONS: Abdominal pain radiating to chest TECHNIQUE: After the administration of intravenous contrast, 2 mm thick sections acquired from the pulmonary apices to the posterior costophrenic angles. 3-dimensional maximum intensity projection (MIP) coronal and sagittal reformats were then acquired through the thorax. For radiation dose reduction, the following was used: automated exposure control, adjustment of mA and/or kV according to patient size. COMPARISON: [facility], CT, PE STUDY (CTA CHEST), 04/23/2013, 10:51. FINDINGS: Image quality: Excellent. Pulmonary arteries: Pulmonary arteries are normal in size, and demonstrate no intraluminal filling defects to suggest central pulmonary embolism. Lungs and pleura: Lungs are clear. No pleural effusions or pneumothorax. Central and peripheral airways are patent. Mediastinum: Heart size is normal, without pericardial effusion. No mediastinal or hilar adenopathy. Thoracic aorta is normal in caliber and enhancement. Esophagus is normal in caliber, but there is a large hiatal hernia with what appears to be gastric inversion (greater curvature of the stomach directed cephalad). There is no sign of associated gastric edema or perforation at this time. Bones and chest wall: No suspicious bony lesions. Ribs and thoracic spine appear intact throughout. Thyroid gland appears normal where well seen. No axillary or supraclavicular adenopathy. Abdomen: Visualized upper abdominal solid organs appear normal in the early arterial phase of enhancement. Note is made of a small amount of free air within the pre-hepatic space, and abnormal free fluid in that area, better seen by dedicated abdomen/pelvis CT obtained same day. IMPRESSION: No pulmonary embolus found. Gastric inversion (very large hiatal hernia into the lower chest with the greater curvature of the stomach directed cephalad) is seen. This is not associated with gastric edema or evidence of gastric perforation. Note is made of free fluid and free air present in the pre-hepatic space, better seen by dedicated abdomen/pelvis CT scanning also obtained today. Dictated by: Artur Almonte M.D. on 02/27/2018 at 13:51 Approved by: Artur Almonte M.D. on 02/27/2018 at 13:57 ECG Data Interpretation: EKG shows normal sinus rhythm with no ST elevation or depression. No ectopy. QRS duration of 103. QTC of 432. Ventricular rate is 74. MDM Narrative Medical decision making narrative: Due to pain radiating from the abdomen into the chest PE study CT was obtained and was negative for any PE. No abnormalities seen in the thoracic cavity other than hiatal hernia. CT scan of the abdomen was obtained and shows areas of free fluid and free air mostly to the right upper quadrant. There is no definite source of the free for air and fluid. CBC shows normal white count. H&H is mildly low however this is consistent with her prior lab values. Chem panel was obtained was unremarkable. Lipase was mildly elevated at 323. Urinalysis Shows elevated WBCs of 10 to 30 and urine bacteria however 5-10 squamous cells so appears to be contaminated. Patient has multiple antibiotic allergies she was placed on her ertapentum in the emergency room and fluids she was treated for pain with Dilaudid. Discussed case with Dr. Philip surgery who recommended transfer patient due to limited amount of instruments available to do the surgery. Discussed case with Dr. Fofana surgery who accepted patient at [facility]. Patient is transported via ALS to the emergency room at [place]. <Reyna Collins MD - Last Filed: 02/27/18 19:11> Lab Data Lab Results 02/27/18 02/27/18 02/27/18 Range/Units 12:30 12:30 12:30 WBC 8.8 (4.5-11.0) X10^3/uL RBC 5.01 (4.0-5.2) X10^6/uL Hgb 9.6 L (12.0-16.0) g/dL Hct 31.9 L (36-46) % MCV 63.7 L (80-100) fL MCH 19.1 L (26-34) PG MCHC 30.0 (30-36) % RDW 19.6 H (11.6-14.8) % Plt Count 282 (150-400) X10^3/uL Neut % (Auto) Not Reportable Lymph % (Auto) Not Reportable [place] % (Auto) Not Reportable Eos % (Auto) Not Reportable Baso % (Auto) Not Reportable Lymph # (Auto) Not Reportable [place] # (Auto) Not Reportable Baso # (Auto) Not Reportable Total Counted 100 Seg Neutrophils % 76.0 H (38-70) % Band Neutrophils % 6.0 (3-7) % Lymphocytes % (Manual) 11.0 L (25-45) % Monocytes % (Manual) 6.0 (2-11) % Basophils % (Manual) 1.0 (0-1) % Neutrophils # (Manual) 7216 H (4300-1989) /uL RBC Morphology See below Hypochromasia 3+ H Anisocytosis 1+ H Microcytosis 2+ H Sodium 136 L (137-145) mmol/L Potassium 4.5 (3.4-5.1) mmol/L Chloride 100 (98-107) mmol/L Carbon Dioxide 27 (22-32) mmol/L BUN 17 (7-17) mg/dL Creatinine 0.80 (0.52-1.04) mg/dL Estimated GFR > 60.0 (>60) mL/min BUN/Creatinine Ratio 21.3 (6-22) Glucose 135 H (80-110) mg/dL Calcium 10.2 (8.4-10.2) mg/dL Total Bilirubin 0.3 (0.2-1.3) mg/dL AST 23 (14-36) IU/L ALT 24 (9-52) IU/L Alkaline Phosphatase 120 (38-126) U/L Total Creatine Kinase 32 (30-135) U/L CK-MB (CK-2) TNP CK-MB (CK-2) Rel Index TNP Troponin I < 0.012 (0.01-0.034) ng/mL Total Protein 7.0 (6.3-8.2) g/dL Albumin 4.1 (3.5-5.0) g/dL Globulin 2.9 (1.7-4.1) g/dL Albumin/Globulin Ratio 1.4 (1.0-2.8) Lipase 323 H (23-300) U/L Procalcitonin < 0.05 (<0.5) ng/mL Urine RBC (0-5/HPF) Urine WBC (0-5/HPF) Ur Squamous Epith Cells Urine Bacteria (None) Ur Culture Indicated? 02/27/18 Range/Units 14:55 WBC (4.5-11.0) X10^3/uL RBC (4.0-5.2) X10^6/uL Hgb (12.0-16.0) g/dL Hct (36-46) % MCV (80-100) fL MCH (26-34) PG MCHC (30-36) % RDW (11.6-14.8) % Plt Count (150-400) X10^3/uL Neut % (Auto) Lymph % (Auto) [place] % (Auto) Eos % (Auto) Baso % (Auto) Lymph # (Auto) [place] # (Auto) Baso # (Auto) Total Counted Seg Neutrophils % (38-70) % Band Neutrophils % (3-7) % Lymphocytes % (Manual) (25-45) % Monocytes % (Manual) (2-11) % Basophils % (Manual) (0-1) % Neutrophils # (Manual) (8426-4291) /uL RBC Morphology Hypochromasia Anisocytosis Microcytosis Sodium (137-145) mmol/L Potassium (3.4-5.1) mmol/L Chloride (98-107) mmol/L Carbon Dioxide (22-32) mmol/L BUN (7-17) mg/dL Creatinine (0.52-1.04) mg/dL Estimated GFR (>60) mL/min BUN/Creatinine Ratio (6-22) Glucose (80-110) mg/dL Calcium (8.4-10.2) mg/dL Total Bilirubin (0.2-1.3) mg/dL AST (14-36) IU/L ALT (9-52) IU/L Alkaline Phosphatase (38-126) U/L Total Creatine Kinase (30-135) U/L CK-MB (CK-2) CK-MB (CK-2) Rel Index Troponin I (0.01-0.034) ng/mL Total Protein (6.3-8.2) g/dL Albumin (3.5-5.0) g/dL Globulin (1.7-4.1) g/dL Albumin/Globulin Ratio (1.0-2.8) Lipase (23-300) U/L Procalcitonin (<0.5) ng/mL Urine RBC 1-5/hpf (0-5/HPF) Urine WBC 10-30/hpf H (0-5/HPF) Ur Squamous Epith Cells 5-10 /hpf H Urine Bacteria Many (>30) H (None) Ur Culture Indicated? Cult not indicated Point of care testing: Point of Care Testing Glucose POC 158 Urine Dip Bedside Urine Glucose Negative Bedside Urine Bilirubin - Negative Bedside Urine Ketone - Negative Urine Specific Ber[place] 1.010 Bedside Urine Occult Blood +/- Bedside Urine pH 8.5 Bedside Urine Protein +/- 15 Bedside Urine Urobilinogen - Negative Bedside Urine Nitrite + Positive Bedside Urine Leukocytes +++ 500 Esterase Discharge Plan Departure Patient Disposition: [facility] Clinical Impression: Abdominal pain Discharge Date/Time: 02/27/18 18:15 Interventions: ED Discharge Assessment Last Done: 02/27/18 18:28 Prescriptions: No Action gabapentin [Neurontin] 300 MG capsule 300 mg PO HS Qty: 0 RF: 0 pantoprazole 40 MG tablet,delayed release (DR/EC) 40 mg PO BID Qty: 0 RF: 0 potassium chloride [Klor-Con 10] 10 MEQ tablet extended release 10 meq PO BID Qty: 0 RF: 0 doxycycline hyclate 100 mg Capsule 100 mg PO BID RF: 0 clopidogrel 75 mg Tablet 75 mg PO DAILY RF: 0 aspirin [Aspir-81] 81 mg Tablet,Delayed Release (Dr/Ec) 81 mg PO DAILY RF: 0 metoprolol succinate 50 mg Tablet Extended Release 24 Hr 50 mg PO DAILY RF: 0 ranitidine HCl [Zantac] 300 mg Tablet 300 mg PO BEDTIME RF: 0 hydrocodone-acetaminophen 10-325 mg Tablet 1 tab PO TID RF: 0 simvastatin 20 mg Tablet 20 mg PO QPM RF: 0 nystatin 100,000 unit/gram Cream 1 applic TOPICAL BID RF: 0 mupirocin 2 % Ointment 1 applic TOPICAL TID RF: 0 fluticasone [Flonase Allergy Relief] 50 mcg/actuation [place],Suspension 2 spray INTRANASAL DAILY RF: 0 cholecalciferol (vitamin D3) [Vitamin D3] 5,000 unit Tablet 5,000 unit PO DAILY RF: 0 quetiapine 25 mg Tablet 25 mg PO DAILY RF: 0 diphenhydramine HCl [Benadryl Itch Stopping] 2 % Gel 1 applic TOPICAL TID-QID PRN (Reason: Itching) RF: 0 diphenhydramine-zinc acetate [Benadryl Itch Stopping] 1-0.1 % Cream 1 applic TOPICAL QID PRN (Reason: Itching) RF: 0 amlodipine 5 mg Tablet 5 mg PO [id number] RF: 0 amitriptyline 50 mg Tablet 50 - 100 mg PO BEDTIME PRN (Reason: Sleep) RF: 0 lidocaine HCl 2 % Solution 5 ml MUCOUS MEMBRANE Q4H PRN (Reason: unknown) RF: 0 ondansetron 4 mg Tablet,Disintegrating 8 mg PO Q8H PRN (Reason: Nausea) RF: 0 twepelgl-ymblwiqtx-wmudhddmc [Neosporin + Pain Relief] 3.5-10,000-10 mg-unit-mg/gram Cream 1 applic Topical PRN PRN (Reason: unknown) RF: 0 camphor-eucalyptus oil-menthol [Vicks Vaporub] 4.7-1.2-2.6 % Ointment 1 applic Topical PRN PRN (Reason: unknown) RF: 0
--- NOTE | 2018-02-27 12:39 | DI.CT.S_ITS ---
PROCEDURE: CT ANGIO CHEST PE PROTOCOL INDICATIONS: Abdominal pain radiating to chest TECHNIQUE: After the administration of intravenous contrast, 2 mm thick sections acquired from the pulmonary apices to the posterior costophrenic angles. 3-dimensional maximum intensity projection (MIP) coronal and sagittal reformats were then acquired through the thorax. For radiation dose reduction, the following was used: automated exposure control, adjustment of mA and/or kV according to patient size. COMPARISON: [facility], CT, PE STUDY (CTA CHEST), 04/23/2013, 10:51. FINDINGS: Image quality: Excellent. Pulmonary arteries: Pulmonary arteries are normal in size, and demonstrate no intraluminal filling defects to suggest central pulmonary embolism. Lungs and pleura: Lungs are clear. No pleural effusions or pneumothorax. Central and peripheral airways are patent. Mediastinum: Heart size is normal, without pericardial effusion. No mediastinal or hilar adenopathy. Thoracic aorta is normal in caliber and enhancement. Esophagus is normal in caliber, but there is a large hiatal hernia with what appears to be gastric inversion (greater curvature of the stomach directed cephalad). There is no sign of associated gastric edema or perforation at this time. Bones and chest wall: No suspicious bony lesions. Ribs and thoracic spine appear intact throughout. Thyroid gland appears normal where well seen. No axillary or supraclavicular adenopathy. Abdomen: Visualized upper abdominal solid organs appear normal in the early arterial phase of enhancement. Note is made of a small amount of free air within the pre-hepatic space, and abnormal free fluid in that area, better seen by dedicated abdomen/pelvis CT obtained same day. IMPRESSION: No pulmonary embolus found. Gastric inversion (very large hiatal hernia into the lower chest with the greater curvature of the stomach directed cephalad) is seen. This is not associated with gastric edema or evidence of gastric perforation. Note is made of free fluid and free air present in the pre-hepatic space, better seen by dedicated abdomen/pelvis CT scanning also obtained today. Dictated by: Artur Almonte M.D. on 02/27/2018 at 13:51 Approved by: Artur Almonte M.D. on 02/27/2018 at 13:57
--- NOTE | 2018-02-27 12:40 | DI.CT.S_ITS ---
PROCEDURE: CT ABDOMEN PELVIS W CON INDICATIONS: Epigastric, right lower quadrant pain TECHNIQUE: After the administration of intravenous contrast, 5 mm thick sections acquired from the diaphragm to the symphysis. 5 mm coronal and sagittal reformats were acquired. For radiation dose reduction, the following was used: automated exposure control, adjustment of mA and/or kV according to patient size. COMPARISON: [facility], CT, PE STUDY (CTA CHEST), 04/23/2013, 10:51. [facility], CT, CT ANGIO CHEST PE PROTOCOL, 02/27/2018, 13:06. [facility], CT, ABDOMEN/PELVIS WITH CONTRAST, 04/23/2016, 8:41. FINDINGS: Image quality: Excellent. ABDOMEN: Lung bases: Lung bases are clear. Heart size is normal. Solid organs: Liver is normal in size and enhancement. Gallbladder has been previously resected. Biliary system is mildly dilated with the common bile duct measuring up to 1.3 cm in maximal transverse dimension. Pancreas enhances normally. Spleen is normal in size and enhancement. No adrenal nodules. Kidneys demonstrate normal size and enhancement, without hydronephrosis. Peritoneum and bowel: Small bowel loops demonstrate normal wall thickness and caliber but the right colon near the right upper quadrant appears mildly wall thickening and there is adjacent omental and pericolonic edema. There is definitely a present a small amount of free fluid and free air, best seen at the right upper quadrant. This is near the area of omental thickening discussed above. Small gas bubbles are seen in the pre-hepatic space, the fissure for the falciform ligament, anterior to the gastric antrum, and possibly adjacent to the proximal transverse duodenum versus duodenal diverticulum at that site. Nodes and vessels: No retroperitoneal or mesenteric adenopathy by size criteria. Aorta and inferior vena cava are normal in size. Miscellaneous: A previously identified ventral omental hernia is again seen without evidence of incarceration or strangulation extending through a peritoneal defect measuring up to 1.5 cm, periumbilical.. PELVIS: Genitourinary: Bladder wall thickness is normal. Miscellaneous: No inguinal hernias or adenopathy. Bones: No suspicious bony lesions. No vertebral body compression fractures. IMPRESSION: 1. Free fluid and free air is present, definite, but source is indeterminate. As discussed above this is predominantly in the right upper quadrant and includes gas adjacent to the gastric antrum, pre-hepatic space, fissure for the falciform ligament, and posterior margin of the left hepatic lobe. Note is made of associated mild right colonic mural thickening. This may be reactive in origin. Intestinal obstruction with poor distention is not associated. 2. Ventral periumbilical omental hernia, previously present, without evidence of incarceration or strangulation. 3. Prior cholecystectomy. Mild prominence of the adjacent common bile duct and intrahepatic bile ducts. A calcified ductal stone is not found. A biliary or pancreatic mass is not identified. Dictated by: Artur Almonte M.D. on 02/27/2018 at 13:38 Approved by: Artur Almonte M.D. on 02/27/2018 at 13:51
[2018-02-27] MEDS: SODIUM CHLORIDE 0.9% 1,000 ML 1000 ML IV (12:52)
[2018-02-27] MEDS: HYDROMORPHONE 1 MG INJ IV ×3 (12:52→17:59)
[2018-02-27] MEDS: ONDANSETRON 4 MG/2 ML INJ IV ×2 (12:53→17:59)
[2018-02-27 13:01] LABS: Alanine Aminotransferase 24 IU/L (9-52); Albumin 4.1 g/dL (3.5-5.0); Albumin Globulin Ratio 1.4 (1.0-2.8); Alkaline Phosphatase 120 U/L (38-126); Aspartate Aminotransferase 23 IU/L (14-36); BUN Creatinine Ratio 21.3 (6-22); Bilirubin Total 0.3 mg/dL (0.2-1.3); Blood Urea Nitrogen 17 mg/dL (7-17); Calcium 10.2 mg/dL (8.4-10.2); Carbon Dioxide 27 mmol/L (22-32); Chloride 100 mmol/L (98-107); Creatine Kinase 32 U/L (30-135); Estimated Glomerular Filt Rate > 60.0 mL/min (>60); Globulin 2.9 g/dL (1.7-4.1); Glucose 135 mg/dL (80-110); HEMOLYSIS < 15 (0-50); Lipase 323 U/L (23-300); Potassium 4.5 mmol/L (3.4-5.1); Sodium 136 mmol/L (137-145)
[2018-02-27 13:12] LABS: Troponin I < 0.012 ng/mL (0.01-0.034)
[2018-02-27 13:14] LABS: Procalcitonin < 0.05 ng/mL (<0.5)
[2018-02-27 13:37] LABS: Hematocrit 31.9 % (36-46); Hemoglobin 9.6 g/dL (12.0-16.0); Mean Corpuscular Hemoglobin 19.1 PG (26-34); Mean Corpuscular Volume 63.7 fL (80-100); Red Blood Cell Count 5.01 X10^6/uL (4.0-5.2); Red Cell Distribution Width 19.6 % (11.6-14.8); White Blood Cell Count 8.8 X10^3/uL (4.5-11.0)
[2018-02-27 13:40] LABS: Add Manual Diff / Slide Review YES
[2018-02-27 13:59] LABS: Neutrophils Absolute Manual 7216 /uL (3000-5900); Total Cells Counted 100
[2018-02-27 14:00] LABS: Microcytosis 2+
[2018-02-27 14:01] LABS: Anisocytosis 1+; Hypochromasia 3+
[2018-02-27 14:02] LABS: Platelet Count 282 X10^3/uL (150-400)
[2018-02-27] MEDS: HYDROMORPHONE 1 MG INJ 0.5 MG IV ×2 (14:25→15:40)
[2018-02-27] MEDS: ERTAPENEM 1 GM in SODIUM CHLORIDE 0.9% 100 ML 200 ML IV (14:26)
[2018-02-27 15:20] LABS: Bacteria Urine Many (>30); Culture Indicated Urine Cult Not Indicated; RBC Urine 1-5/HPF (0-5/HPF); Squamous Epithelial Cell Urine 5-10 /HPF; WBC Urine 10-30/HPF (0-5/HPF)
[2018-02-27] MEDS: SODIUM CHLORIDE 0.9% 1,000 ML 100 ML IV (15:38)
--- NOTE | 2018-02-27 16:05 | ED_ITS ---
HPI - Abdominal Pain <GRAHAM Palma - Last Filed: 02/27/18 17:29> General Chief Complaint: Abdominal Pain Stated Complaint: out of hydrocodone, abd pain Time Seen by Provider: 02/27/18 12:07 Source: patient Mode of arrival: EMS Limitations: no limitations History of Present Illness HPI narrative: 82-year-old female with history of hypertension and diabetes that is nonsmoker here for complaint of abdominal pain that started earlier this morning. She states she was out feeding horses when pain started to her epigastric area and radiating over into the right abdomen and into the bilateral shoulders. Denies any trauma to the area. No fevers no chills. Last p.o. intake was breakfast this morning which she tolerated. No nausea vomiting. Last bowel movement was 2 days ago and she states that is not a normal for her. She denies any urinary symptoms. No stressors or relievers of her symptoms. She denies any flank pain. She reports having a history of ventral hernias and hysterectomy. Related Data Home Medications Medication Instructions Recorded Confirmed gabapentin [Neurontin] 300 mg PO HS #0 04/23/16 02/27/18 pantoprazole 40 mg PO BID #0 04/23/16 02/27/18 potassium chloride [Klor-Con 10] 10 meq PO BID #0 04/23/16 02/27/18 aspirin [Aspir-81] 81 mg PO DAILY 07/06/17 09/15/17 cholecalciferol (vitamin D3) 5,000 unit PO DAILY 07/06/17 09/15/17 [Vitamin D3] clopidogrel 75 mg PO DAILY 07/06/17 09/15/17 doxycycline hyclate 100 mg PO BID 07/06/17 02/27/18 fluticasone [Flonase Allergy 2 spray INTRANASAL DAILY 07/06/17 09/15/17 Relief] hydrocodone-acetaminophen 1 tab PO TID 07/06/17 02/27/18 metoprolol succinate 50 mg PO DAILY 07/06/17 09/15/17 mupirocin 1 applic TOPICAL TID 07/06/17 09/15/17 nystatin 1 applic TOPICAL BID 07/06/17 09/15/17 ranitidine HCl [Zantac] 300 mg PO BEDTIME 07/06/17 02/27/18 simvastatin 20 mg PO QPM 07/06/17 02/27/18 amitriptyline 50 - 100 mg PO BEDTIME PRN 02/27/18 02/27/18 amlodipine 5 mg PO [id number] 02/27/18 02/27/18 camphor-eucalyptus oil-menthol 1 applic TOPICAL PRN PRN 02/27/18 02/27/18 [Vicks Vaporub] diphenhydramine HCl [Benadryl Itch 1 applic TOPICAL TID-QID PRN 02/27/18 Stopping] diphenhydramine-zinc acetate 1 applic TOPICAL QID PRN 02/27/18 02/27/18 [Benadryl Itch Stopping] lidocaine HCl 5 ml MUCOUS MEMBRANE Q4H PRN 02/27/18 02/27/18 ymbkyafg-ucsqkssla-qaosukejm 1 applic TOPICAL PRN PRN 02/27/18 02/27/18 [Neosporin + Pain Relief] ondansetron 8 mg PO Q8H PRN 02/27/18 02/27/18 quetiapine 25 mg PO DAILY 02/27/18 02/27/18 Allergies Allergy/AdvReac Type Severity Reaction Status Date / Time cefuroxime Allergy Unknown Verified 02/27/18 12:20 clarithromycin Allergy Unknown Verified 02/27/18 12:20 codeine Allergy Unknown Verified 02/27/18 12:20 fluticasone Allergy Unknown Verified 02/27/18 12:20 iodine Allergy Unknown Verified 02/27/18 12:20 levofloxacin Allergy Unknown Verified 02/27/18 12:20 Penicillins Allergy Unknown Verified 02/27/18 12:20 povidone-iodine Allergy Unknown Verified 02/27/18 12:20 [From Betadine] procaine Allergy Unknown Verified 02/27/18 12:20 salmeterol Allergy Unknown Verified 02/27/18 12:20 soap [From Betadine] Allergy Unknown Verified 02/27/18 12:20 fentanyl AdvReac Intermediate Confusion Verified 02/27/18 12:20 vancomycin [From Vancocin] AdvReac Intermediate Rash Verified 02/27/18 12:20 Review of Systems <GRAHAM Palma - Last Filed: 02/27/18 17:29> Constitutional Denies chills, Denies fever(s), Denies lethargy and Denies weakness ENT Ears, Nose, Mouth, and Throat: Denies change in voice, Denies neck pain and Denies sore throat Cardiovascular Denies chest pain, Denies irregular heart rhythm, Denies lightheadedness, Denies palpitations, Denies dyspnea, Denies dyspnea on exertion and Denies orthopnea Respiratory Denies cough, Denies dyspnea, Denies dyspnea on exertion and Denies wheezing Gastrointestinal Gastrointestinal: Denies abdominal pain, Denies change in bowel habits, Denies diarrhea, Denies nausea and Denies vomiting Comments: Epigastric pain radiating to the right abdomen and to bilateral shoulders Genitourinary Denies hematuria, Denies flank pain, Denies urinary incontinence and Denies urinary urgency Musculoskeletal Denies neck pain Integumentary/Breasts Denies pruritus, Denies erythema, Denies rash and Denies wounds Neurologic Denies confusion and Denies weakness Psychiatric Denies anxiety, Denies confusion, Denies depression, Denies homicidal ideation and Denies suicidal ideation Endocrine Denies palpitations Hematologic/Lymphatic Denies easy bruising Allergic/Immunologic Denies wheezing Exam <GRAHAM Palma - Last Filed: 02/27/18 17:29> Initial Vital Signs Initial Vital Signs: Vital Signs Temperature 98.0 F 02/27/18 12:17 Pulse Rate 96 H 02/27/18 12:17 Respiratory Rate 23 02/27/18 12:17 Blood Pressure 149/70 H 02/27/18 12:17 Pulse Oximetry 92 02/27/18 12:17 Const General: cooperative and well developed Nutritional Appearance: well nourished Orientation: alert, awake, oriented x3 and not confused [facility] Mouth: oral mucosae normal and moist mucous membranes Eyes Conjunctivae: conjunctivae normal Sclera: sclerae normal Pupils: PERRL EOM: EOM intact bilaterally Resp Effort & Inspection: normal respiratory effort, able to speak in complete sentences, no respiratory distress and no use of accessory muscles Auscultation: clear to auscultation bilaterally, no rales, no rhonchi and no wheezes Cardio Rate: regular rate Rhythm: regular rhythm Heart Sounds: no click, no gallops, no murmurs and no rubs Pulses: normal peripheral pulses GI Inspection: non-distended Palpation: soft, no hepatosplenomegaly, No guarding, hernia, No pulsatile mass and tender (Tenderness to the epigastric area and also to right upper quadrant) Auscultation: normal bowel sounds General: No CVA tenderness Skin General: no rashes or lesions noted, No jaundice and No petechiae Neuro General: alert, oriented x3, gait normal and no focal motor deficits Speech: speech normal <Reyna Collins MD - Last Filed: 02/27/18 19:11> Initial Vital Signs Initial Vital Signs: Vital Signs Temperature 98.0 F 02/27/18 12:17 Pulse Rate 96 H 02/27/18 12:17 Respiratory Rate 23 02/27/18 12:17 Blood Pressure 149/70 H 02/27/18 12:17 Pulse Oximetry 92 02/27/18 12:17 Course <GRAHAM Palma - Last Filed: 02/27/18 17:29> Orders Ordered: ED Orders 02/27/18 12:30 Complete Blood Count AUTO DIFF Stat Comprehensive Metabolic Panel Stat Lipase Stat Procalcitonin Stat Troponin & CK Cardiac Panel Stat 02/27/18 12:39 CT angio chest PE protocol Stat 02/27/18 12:40 CT abdomen pelvis w con Stat 02/27/18 14:55 Urine Microscopic Stat 02/27/18 15:40 Blood Culture Stat Discontinued Medications Hydromorphone HCl (Dilaudid) 1 mg IV NOW ONE Stop: 02/27/18 12:40 Last Admin: 02/27/18 12:52 Dose: 1 mg Hydromorphone HCl (Dilaudid) 0.5 mg IV NOW ONE Stop: 02/27/18 14:11 Last Admin: 02/27/18 14:25 Dose: 0.5 mg Hydromorphone HCl (Dilaudid) 0.5 mg IV NOW ONE Stop: 02/27/18 15:29 Last Admin: 02/27/18 15:40 Dose: 0.5 mg Hydromorphone HCl (Dilaudid) 1 mg IV NOW ONE Stop: 02/27/18 16:49 Last Admin: 02/27/18 16:53 Dose: 1 mg Hydromorphone HCl (Dilaudid) 1 mg IV NOW ONE Stop: 02/27/18 17:59 Last Admin: 02/27/18 17:59 Dose: 1 mg Sodium Chloride (Normal Saline 0.9%) 1,000 mls @ 1,000 mls/hr IV BOLUS ONE Stop: 02/27/18 13:38 Last Infusion: 02/27/18 14:45 Dose: 0 mls/hr Admin: 02/27/18 12:52 Dose: 1,000 mls/hr Ertapenem 1 gm/ Sodium (Chloride) 100 mls @ 200 mls/hr IV NOW ONE Stop: 02/27/18 14:11 Last Infusion: 02/27/18 15:10 Dose: 0 mls/hr Admin: 02/27/18 14:26 Dose: 200 mls/hr Sodium Chloride (Normal Saline 0.9%) 1,000 mls @ 100 mls/hr IV CONT ADA Last Infusion: 02/27/18 18:29 Dose: 0 mls/hr Admin: 02/27/18 15:38 Dose: 100 mls/hr Ondansetron HCl (Zofran) 4 mg IV NOW ONE Stop: 02/27/18 12:40 Last Admin: 02/27/18 12:53 Dose: 4 mg Ondansetron HCl (Zofran) 4 mg IV NOW ONE Stop: 02/27/18 17:59 Last Admin: 02/27/18 17:59 Dose: 4 mg Vital Signs - 8 hr 02/27/18 12:17 02/27/18 13:00 02/27/18 13:30 Temperature 98.0 F Pulse Rate 96 H 99 H Respiratory Rate 23 25 H 24 Blood Pressure 149/70 H Blood Pressure [Left Arm] 116/83 121/93 H Pulse Oximetry 92 95 02/27/18 14:43 02/27/18 16:00 02/27/18 16:12 Temperature 99.0 F 99.0 F Pulse Rate 104 H 118 H 98 H Respiratory Rate 18 23 Blood Pressure Blood Pressure [Left Arm] 126/84 165/118 H Pulse Oximetry 96 97 02/27/18 17:46 Temperature Pulse Rate 120 H Respiratory Rate 19 Blood Pressure Blood Pressure [Left Arm] 144/104 H Pulse Oximetry 98 <Reyna Collins MD - Last Filed: 02/27/18 19:11> Orders Ordered: ED Orders 02/27/18 12:30 Complete Blood Count AUTO DIFF Stat Comprehensive Metabolic Panel Stat Lipase Stat Procalcitonin Stat Troponin & CK Cardiac Panel Stat 02/27/18 12:39 CT angio chest PE protocol Stat 02/27/18 12:40 CT abdomen pelvis w con Stat 02/27/18 14:55 Urine Microscopic Stat 02/27/18 15:40 Blood Culture Stat Discontinued Medications Hydromorphone HCl (Dilaudid) 1 mg IV NOW ONE Stop: 02/27/18 12:40 Last Admin: 02/27/18 12:52 Dose: 1 mg Hydromorphone HCl (Dilaudid) 0.5 mg IV NOW ONE Stop: 02/27/18 14:11 Last Admin: 02/27/18 14:25 Dose: 0.5 mg Hydromorphone HCl (Dilaudid) 0.5 mg IV NOW ONE Stop: 02/27/18 15:29 Last Admin: 02/27/18 15:40 Dose: 0.5 mg Hydromorphone HCl (Dilaudid) 1 mg IV NOW ONE Stop: 02/27/18 16:49 Last Admin: 02/27/18 16:53 Dose: 1 mg Hydromorphone HCl (Dilaudid) 1 mg IV NOW ONE Stop: 02/27/18 17:59 Last Admin: 02/27/18 17:59 Dose: 1 mg Sodium Chloride (Normal Saline 0.9%) 1,000 mls @ 1,000 mls/hr IV BOLUS ONE Stop: 02/27/18 13:38 Last Infusion: 02/27/18 14:45 Dose: 0 mls/hr Admin: 02/27/18 12:52 Dose: 1,000 mls/hr Ertapenem 1 gm/ Sodium (Chloride) 100 mls @ 200 mls/hr IV NOW ONE Stop: 02/27/18 14:11 Last Infusion: 02/27/18 15:10 Dose: 0 mls/hr Admin: 02/27/18 14:26 Dose: 200 mls/hr Sodium Chloride (Normal Saline 0.9%) 1,000 mls @ 100 mls/hr IV CONT ADA Last Infusion: 02/27/18 18:29 Dose: 0 mls/hr Admin: 02/27/18 15:38 Dose: 100 mls/hr Ondansetron HCl (Zofran) 4 mg IV NOW ONE Stop: 02/27/18 12:40 Last Admin: 02/27/18 12:53 Dose: 4 mg Ondansetron HCl (Zofran) 4 mg IV NOW ONE Stop: 02/27/18 17:59 Last Admin: 02/27/18 17:59 Dose: 4 mg Vital Signs - 8 hr 02/27/18 12:17 02/27/18 13:00 02/27/18 13:30 Temperature 98.0 F Pulse Rate 96 H 99 H Respiratory Rate 23 25 H 24 Blood Pressure 149/70 H Blood Pressure [Left Arm] 116/83 121/93 H Pulse Oximetry 92 95 02/27/18 14:43 02/27/18 16:00 02/27/18 16:12 Temperature 99.0 F 99.0 F Pulse Rate 104 H 118 H 98 H Respiratory Rate 18 23 Blood Pressure Blood Pressure [Left Arm] 126/84 165/118 H Pulse Oximetry 96 97 02/27/18 17:46 Temperature Pulse Rate 120 H Respiratory Rate 19 Blood Pressure Blood Pressure [Left Arm] 144/104 H Pulse Oximetry 98 MDM - Abdominal Pain <GRAHAM Palma - Last Filed: 02/27/18 17:29> Differential Diagnosis Differential diagnosis: Likely abdominal pain Lab Data Result diagrams: 02/27/18 12:30 02/27/18 12:30 Lab Results 02/27/18 02/27/18 02/27/18 Range/Units 12:30 12:30 12:30 WBC 8.8 (4.5-11.0) X10^3/uL RBC 5.01 (4.0-5.2) X10^6/uL Hgb 9.6 L (12.0-16.0) g/dL Hct 31.9 L (36-46) % MCV 63.7 L (80-100) fL MCH 19.1 L (26-34) PG MCHC 30.0 (30-36) % RDW 19.6 H (11.6-14.8) % Plt Count 282 (150-400) X10^3/uL Neut % (Auto) Not Reportable Lymph % (Auto) Not Reportable [place] % (Auto) Not Reportable Eos % (Auto) Not Reportable Baso % (Auto) Not Reportable Lymph # (Auto) Not Reportable [place] # (Auto) Not Reportable Baso # (Auto) Not Reportable Total Counted 100 Seg Neutrophils % 76.0 H (38-70) % Band Neutrophils % 6.0 (3-7) % Lymphocytes % (Manual) 11.0 L (25-45) % Monocytes % (Manual) 6.0 (2-11) % Basophils % (Manual) 1.0 (0-1) % Neutrophils # (Manual) 7216 H (3655-9647) /uL RBC Morphology See below Hypochromasia 3+ H Anisocytosis 1+ H Microcytosis 2+ H Sodium 136 L (137-145) mmol/L Potassium 4.5 (3.4-5.1) mmol/L Chloride 100 (98-107) mmol/L Carbon Dioxide 27 (22-32) mmol/L BUN 17 (7-17) mg/dL Creatinine 0.80 (0.52-1.04) mg/dL Estimated GFR > 60.0 (>60) mL/min BUN/Creatinine Ratio 21.3 (6-22) Glucose 135 H (80-110) mg/dL Calcium 10.2 (8.4-10.2) mg/dL Total Bilirubin 0.3 (0.2-1.3) mg/dL AST 23 (14-36) IU/L ALT 24 (9-52) IU/L Alkaline Phosphatase 120 (38-126) U/L Total Creatine Kinase 32 (30-135) U/L CK-MB (CK-2) TNP CK-MB (CK-2) Rel Index TNP Troponin I < 0.012 (0.01-0.034) ng/mL Total Protein 7.0 (6.3-8.2) g/dL Albumin 4.1 (3.5-5.0) g/dL Globulin 2.9 (1.7-4.1) g/dL Albumin/Globulin Ratio 1.4 (1.0-2.8) Lipase 323 H (23-300) U/L Procalcitonin < 0.05 (<0.5) ng/mL Urine RBC (0-5/HPF) Urine WBC (0-5/HPF) Ur Squamous Epith Cells Urine Bacteria (None) Ur Culture Indicated? 02/27/18 Range/Units 14:55 WBC (4.5-11.0) X10^3/uL RBC (4.0-5.2) X10^6/uL Hgb (12.0-16.0) g/dL Hct (36-46) % MCV (80-100) fL MCH (26-34) PG MCHC (30-36) % RDW (11.6-14.8) % Plt Count (150-400) X10^3/uL Neut % (Auto) Lymph % (Auto) [place] % (Auto) Eos % (Auto) Baso % (Auto) Lymph # (Auto) [place] # (Auto) Baso # (Auto) Total Counted Seg Neutrophils % (38-70) % Band Neutrophils % (3-7) % Lymphocytes % (Manual) (25-45) % Monocytes % (Manual) (2-11) % Basophils % (Manual) (0-1) % Neutrophils # (Manual) (1182-2369) /uL RBC Morphology Hypochromasia Anisocytosis Microcytosis Sodium (137-145) mmol/L Potassium (3.4-5.1) mmol/L Chloride (98-107) mmol/L Carbon Dioxide (22-32) mmol/L BUN (7-17) mg/dL Creatinine (0.52-1.04) mg/dL Estimated GFR (>60) mL/min BUN/Creatinine Ratio (6-22) Glucose (80-110) mg/dL Calcium (8.4-10.2) mg/dL Total Bilirubin (0.2-1.3) mg/dL AST (14-36) IU/L ALT (9-52) IU/L Alkaline Phosphatase (38-126) U/L Total Creatine Kinase (30-135) U/L CK-MB (CK-2) CK-MB (CK-2) Rel Index Troponin I (0.01-0.034) ng/mL Total Protein (6.3-8.2) g/dL Albumin (3.5-5.0) g/dL Globulin (1.7-4.1) g/dL Albumin/Globulin Ratio (1.0-2.8) Lipase (23-300) U/L Procalcitonin (<0.5) ng/mL Urine RBC 1-5/hpf (0-5/HPF) Urine WBC 10-30/hpf H (0-5/HPF) Ur Squamous Epith Cells 5-10 /hpf H Urine Bacteria Many (>30) H (None) Ur Culture Indicated? Cult not indicated Point of care testing: Point of Care Testing Glucose POC 158 Urine Dip Bedside Urine Glucose Negative Bedside Urine Bilirubin - Negative Bedside Urine Ketone - Negative Urine Specific [place] 1.010 Bedside Urine Occult Blood +/- Bedside Urine pH 8.5 Bedside Urine Protein +/- 15 Bedside Urine Urobilinogen - Negative Bedside Urine Nitrite + Positive Bedside Urine Leukocytes +++ [address] scan - abdomen: Radiologist's impression: [address] [address] [address] Scan Report Signed Patient: Rowan Guerra EMR#: [id number] : 7Acct:[id number] Age/Sex: 82 / FDate of Service: 02/27/18 Loc: ED Accession Number: [id number] Procedure: CT abdomen pelvis w con Ordering Provider: Rich Enriquez PROCEDURE: CT ABDOMEN PELVIS W CON INDICATIONS: Epigastric, right lower quadrant pain TECHNIQUE: After the administration of intravenous contrast, 5 mm thick sections acquired from the diaphragm to the symphysis. 5 mm coronal and sagittal reformats were acquired. For radiation dose reduction, the following was used: automated exposure control, adjustment of mA and/or kV according to patient size. COMPARISON: Located Within [facility], CT, PE STUDY (CTA CHEST), 04/23/2013, 10:51. Located Within [facility], CT, CT ANGIO CHEST PE PROTOCOL, 02/27/2018, 13:06. Located Within [facility], CT , ABDOMEN/PELVIS WITH CONTRAST, 04/23/2016, 8:41. FINDINGS: Image quality: Excellent. ABDOMEN: Lung bases: Lung bases are clear. Heart size is normal. Solid organs: Liver is normal in size and enhancement. Gallbladder has been previously resected. Biliary system is mildly dilated with the common bile duct measuring up to 1.3 cm in maximal transverse dimension. Pancreas enhances normally. Spleen is normal in size and enhancement. No adrenal nodules. Kidneys demonstrate normal size and enhancement, without hydronephrosis. Peritoneum and bowel: Small bowel loops demonstrate normal wall thickness and caliber but the right colon near the right upper quadrant appears mildly wall thickening and there is adjacent omental and pericolonic edema. There is definitely a present a small amount of free fluid and free air, best seen at the right upper quadrant. This is near the area of omental thickening discussed above. Small gas bubbles are seen in the pre- hepatic space, the fissure for the falciform ligament, anterior to the gastric antrum, and possibly adjacent to the proximal transverse duodenum versus duodenal diverticulum at that site. Nodes and vessels: No retroperitoneal or mesenteric adenopathy by size criteria. Aorta and inferior vena cava are normal in size. Miscellaneous: A previously identified ventral omental hernia is again seen without evidence of incarceration or strangulation extending through a peritoneal defect measuring up to 1.5 cm, periumbilical.. PELVIS: Genitourinary: Bladder wall thickness is normal. Miscellaneous: No inguinal hernias or adenopathy. Bones: No suspicious bony lesions. No vertebral body compression fractures. IMPRESSION: 1. Free fluid and free air is present, definite, but source is indeterminate. As discussed above this is predominantly in the right upper quadrant and includes gas adjacent to the gastric antrum, pre-hepatic space, fissure for the falciform ligament, and posterior margin of the left hepatic lobe. Note is made of associated mild right colonic mural thickening. This may be reactive in origin. Intestinal obstruction with poor distention is not associated. 2. Ventral periumbilical omental hernia, previously present, without evidence of incarceration or strangulation. 3. Prior cholecystectomy. Mild prominence of the adjacent common bile duct and intrahepatic bile ducts. A calcified ductal stone is not found. A biliary or pancreatic mass is not identified. Dictated by: Artur Almonte M.D. on 02/27/2018 at 13:38 Approved by: Artur Almonte M.D. on 02/27/2018 at 13:51 CT scan - chest: Radiologist's impression: [place] [address] CT Scan Report Signed Patient: Rowan Guerra EMR#: [id number] : 7Acct:[id number] Age/Sex: 82 / FDate of Service: 02/27/18 Loc: ED Accession Number: [id number] Procedure: CT angio chest PE protocol Ordering Provider: Rich Enriquez PROCEDURE: CT ANGIO CHEST PE PROTOCOL INDICATIONS: Abdominal pain radiating to chest TECHNIQUE: After the administration of intravenous contrast, 2 mm thick sections acquired from the pulmonary apices to the posterior costophrenic angles. 3-dimensional maximum intensity projection (MIP) coronal and sagittal reformats were then acquired through the thorax. For radiation dose reduction, the following was used: automated exposure control, adjustment of mA and/or kV according to patient size. COMPARISON: Located Within [facility], CT, PE STUDY (CTA CHEST), 04/23/2013, 10:51. FINDINGS: Image quality: Excellent. Pulmonary arteries: Pulmonary arteries are normal in size, and demonstrate no intraluminal filling defects to suggest central pulmonary embolism. Lungs and pleura: Lungs are clear. No pleural effusions or pneumothorax. Central and peripheral airways are patent. Mediastinum: Heart size is normal, without pericardial effusion. No mediastinal or hilar adenopathy. Thoracic aorta is normal in caliber and enhancement. Esophagus is normal in caliber, but there is a large hiatal hernia with what appears to be gastric inversion (greater curvature of the stomach directed cephalad). There is no sign of associated gastric edema or perforation at this time. Bones and chest wall: No suspicious bony lesions. Ribs and thoracic spine appear intact throughout. Thyroid gland appears normal where well seen. No axillary or supraclavicular adenopathy. Abdomen: Visualized upper abdominal solid organs appear normal in the early arterial phase of enhancement. Note is made of a small amount of free air within the pre -hepatic space, and abnormal free fluid in that area, better seen by dedicated abdomen/ pelvis CT obtained same day. IMPRESSION: No pulmonary embolus found. Gastric inversion (very large hiatal hernia into the lower chest with the greater curvature of the stomach directed cephalad) is seen. This is not associated with gastric edema or evidence of gastric perforation. Note is made of free fluid and free air present in the pre-hepatic space, better seen by dedicated abdomen/pelvis CT scanning also obtained today. Dictated by: Artur Almonte M.D. on 02/27/2018 at 13:51 Approved by: Artur Almonte M.D. on 02/27/2018 at 13:57 ECG Data Interpretation: EKG shows normal sinus rhythm with no ST elevation or depression. No ectopy. QRS duration of 103. QTC of 432. Ventricular rate is 74. MDM Narrative Medical decision making narrative: Due to pain radiating from the abdomen into the chest PE study CT was obtained and was negative for any PE. No abnormalities seen in the thoracic cavity other than hiatal hernia. CT scan of the abdomen was obtained and shows areas of free fluid and free air mostly to the right upper quadrant. There is no definite source of the free for air and fluid. CBC shows normal white count. H&H is mildly low however this is consistent with her prior lab values. Chem panel was obtained was unremarkable. Lipase was mildly elevated at 323. Urinalysis Shows elevated WBCs of 10 to 30 and urine bacteria however 5-10 squamous cells so appears to be contaminated. Patient has multiple antibiotic allergies she was placed on her ertapentum in the emergency room and fluids she was treated for pain with Dilaudid. Discussed case with Dr. Philip surgery who recommended transfer patient due to limited amount of instruments available to do the surgery. Discussed case with Dr. Fofana surgery who accepted patient at [facility]. Patient is transported via ALS to the emergency room at [place]. <Reyna Collins MD - Last Filed: 02/27/18 19:11> Lab Data Lab Results 02/27/18 02/27/18 02/27/18 Range/Units 12:30 12:30 12:30 WBC 8.8 (4.5-11.0) X10^3/uL RBC 5.01 (4.0-5.2) X10^6/uL Hgb 9.6 L (12.0-16.0) g/dL Hct 31.9 L (36-46) % MCV 63.7 L (80-100) fL MCH 19.1 L (26-34) PG MCHC 30.0 (30-36) % RDW 19.6 H (11.6-14.8) % Plt Count 282 (150-400) X10^3/uL Neut % (Auto) Not Reportable Lymph % (Auto) Not Reportable [place] % (Auto) Not Reportable Eos % (Auto) Not Reportable Baso % (Auto) Not Reportable Lymph # (Auto) Not Reportable [place] # (Auto) Not Reportable Baso # (Auto) Not Reportable Total Counted 100 Seg Neutrophils % 76.0 H (38-70) % Band Neutrophils % 6.0 (3-7) % Lymphocytes % (Manual) 11.0 L (25-45) % Monocytes % (Manual) 6.0 (2-11) % Basophils % (Manual) 1.0 (0-1) % Neutrophils # (Manual) 7216 H (8899-0436) /uL RBC Morphology See below Hypochromasia 3+ H Anisocytosis 1+ H Microcytosis 2+ H Sodium 136 L (137-145) mmol/L Potassium 4.5 (3.4-5.1) mmol/L Chloride 100 (98-107) mmol/L Carbon Dioxide 27 (22-32) mmol/L BUN 17 (7-17) mg/dL Creatinine 0.80 (0.52-1.04) mg/dL Estimated GFR > 60.0 (>60) mL/min BUN/Creatinine Ratio 21.3 (6-22) Glucose 135 H (80-110) mg/dL Calcium 10.2 (8.4-10.2) mg/dL Total Bilirubin 0.3 (0.2-1.3) mg/dL AST 23 (14-36) IU/L ALT 24 (9-52) IU/L Alkaline Phosphatase 120 (38-126) U/L Total Creatine Kinase 32 (30-135) U/L CK-MB (CK-2) TNP CK-MB (CK-2) Rel Index TNP Troponin I < 0.012 (0.01-0.034) ng/mL Total Protein 7.0 (6.3-8.2) g/dL Albumin 4.1 (3.5-5.0) g/dL Globulin 2.9 (1.7-4.1) g/dL Albumin/Globulin Ratio 1.4 (1.0-2.8) Lipase 323 H (23-300) U/L Procalcitonin < 0.05 (<0.5) ng/mL Urine RBC (0-5/HPF) Urine WBC (0-5/HPF) Ur Squamous Epith Cells Urine Bacteria (None) Ur Culture Indicated? 02/27/18 Range/Units 14:55 WBC (4.5-11.0) X10^3/uL RBC (4.0-5.2) X10^6/uL Hgb (12.0-16.0) g/dL Hct (36-46) % MCV (80-100) fL MCH (26-34) PG MCHC (30-36) % RDW (11.6-14.8) % Plt Count (150-400) X10^3/uL Neut % (Auto) Lymph % (Auto) [place] % (Auto) Eos % (Auto) Baso % (Auto) Lymph # (Auto) [place] # (Auto) Baso # (Auto) Total Counted Seg Neutrophils % (38-70) % Band Neutrophils % (3-7) % Lymphocytes % (Manual) (25-45) % Monocytes % (Manual) (2-11) % Basophils % (Manual) (0-1) % Neutrophils # (Manual) (3366-6149) /uL RBC Morphology Hypochromasia Anisocytosis Microcytosis Sodium (137-145) mmol/L Potassium (3.4-5.1) mmol/L Chloride (98-107) mmol/L Carbon Dioxide (22-32) mmol/L BUN (7-17) mg/dL Creatinine (0.52-1.04) mg/dL Estimated GFR (>60) mL/min BUN/Creatinine Ratio (6-22) Glucose (80-110) mg/dL Calcium (8.4-10.2) mg/dL Total Bilirubin (0.2-1.3) mg/dL AST (14-36) IU/L ALT (9-52) IU/L Alkaline Phosphatase (38-126) U/L Total Creatine Kinase (30-135) U/L CK-MB (CK-2) CK-MB (CK-2) Rel Index Troponin I (0.01-0.034) ng/mL Total Protein (6.3-8.2) g/dL Albumin (3.5-5.0) g/dL Globulin (1.7-4.1) g/dL Albumin/Globulin Ratio (1.0-2.8) Lipase (23-300) U/L Procalcitonin (<0.5) ng/mL Urine RBC 1-5/hpf (0-5/HPF) Urine WBC 10-30/hpf H (0-5/HPF) Ur Squamous Epith Cells 5-10 /hpf H Urine Bacteria Many (>30) H (None) Ur Culture Indicated? Cult not indicated Point of care testing: Point of Care Testing Glucose POC 158 Urine Dip Bedside Urine Glucose Negative Bedside Urine Bilirubin - Negative Bedside Urine Ketone - Negative Urine Specific [place] 1.010 Bedside Urine Occult Blood +/- Bedside Urine pH 8.5 Bedside Urine Protein +/- 15 Bedside Urine Urobilinogen - Negative Bedside Urine Nitrite + Positive Bedside Urine Leukocytes +++ 500 Esterase Discharge Plan Departure Patient Disposition: [facility] Clinical Impression: Abdominal pain Discharge Date/Time: 02/27/18 18:15 Interventions: ED Discharge Assessment Last Done: 02/27/18 18:28 Prescriptions: No Action gabapentin [Neurontin] 300 MG capsule 300 mg PO HS Qty: 0 RF: 0 pantoprazole 40 MG tablet,delayed release (DR/EC) 40 mg PO BID Qty: 0 RF: 0 potassium chloride [Klor-Con 10] 10 MEQ tablet extended release 10 meq PO BID Qty: 0 RF: 0 doxycycline hyclate 100 mg Capsule 100 mg PO BID RF: 0 clopidogrel 75 mg Tablet 75 mg PO DAILY RF: 0 aspirin [Aspir-81] 81 mg Tablet,Delayed Release (Dr/Ec) 81 mg PO DAILY RF: 0 metoprolol succinate 50 mg Tablet Extended Release 24 Hr 50 mg PO DAILY RF: 0 ranitidine HCl [Zantac] 300 mg Tablet 300 mg PO BEDTIME RF: 0 hydrocodone-acetaminophen 10-325 mg Tablet 1 tab PO TID RF: 0 simvastatin 20 mg Tablet 20 mg PO QPM RF: 0 nystatin 100,000 unit/gram Cream 1 applic TOPICAL BID RF: 0 mupirocin 2 % Ointment 1 applic TOPICAL TID RF: 0 fluticasone [Flonase Allergy Relief] 50 mcg/actuation [place],Suspension 2 spray INTRANASAL DAILY RF: 0 cholecalciferol (vitamin D3) [Vitamin D3] 5,000 unit Tablet 5,000 unit PO DAILY RF: 0 quetiapine 25 mg Tablet 25 mg PO DAILY RF: 0 diphenhydramine HCl [Benadryl Itch Stopping] 2 % Gel 1 applic TOPICAL TID-QID PRN (Reason: Itching) RF: 0 diphenhydramine-zinc acetate [Benadryl Itch Stopping] 1-0.1 % Cream 1 applic TOPICAL QID PRN (Reason: Itching) RF: 0 amlodipine 5 mg Tablet 5 mg PO [id number] RF: 0 amitriptyline 50 mg Tablet 50 - 100 mg PO BEDTIME PRN (Reason: Sleep) RF: 0 lidocaine HCl 2 % Solution 5 ml MUCOUS MEMBRANE Q4H PRN (Reason: unknown) RF: 0 ondansetron 4 mg Tablet,Disintegrating 8 mg PO Q8H PRN (Reason: Nausea) RF: 0 [id number]-uxeqboeni [Neosporin + Pain Relief] 3.5-10,000-10 mg-unit- mg/gram Cream 1 applic Topical PRN PRN (Reason: unknown) RF: 0 camphor-eucalyptus oil-menthol [Vicks Vaporub] 4.7-1.2-2.6 % Ointment 1 applic Topical PRN PRN (Reason: unknown) RF: 0
== END 2018-02-27 18:15 | disposition short-term general hospital (02) ==
PROVIDERS: Emergency Provider Nurse Practitioner Family; PCP Internal Medicine
DX: R10.9 Unspecified abdominal pain (principal)
CPT/HCPCS: 36415; 36591; 71275; 74177; 80053; 81003; 81015; 82550; 82962; 83690; 84145; 84484; 85025; 87040; 93005; 93010; 96361; 96374; 96375; 96376; 99284; 99285; J1170; J1335; J2405; Q9967

== ENCOUNTER 2019-01-21 13:16 | Emergency (ER) | payer MEDICARE, OTHER, SELFPAY ==
[2019-01-21 13:25] VITALS: PULSE 88; RESP 18; TEMP 37.1; O2SAT 97
[2019-01-21 13:31] VITALS: BP 176/103
[2019-01-21 15:00] VITALS: BP 186/117; PULSE 84; RESP 15; O2SAT 96
--- NOTE | 2019-01-21 15:06 | ED.SKABFB ---
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 She notes that she had a flu shot about a week ago and has felt slightly under the weather over the last week worse in the last 2 days. She also has chronic bronchitis and attributed her symptoms to that. The area around the stump is not red, contused, some minor fullness but no actual pain, no skin breakdown and no rashes. Related Data Home Medications Medication Instructions Recorded Confirmed gabapentin [Neurontin] 300 mg PO HS #0 04/23/16 11/01/18 pantoprazole 40 mg PO BID #0 04/23/16 11/01/18 potassium chloride [Klor-Con 10] 10 meq PO BID #0 04/23/16 11/01/18 aspirin [Aspir-81] 81 mg PO DAILY 07/06/17 11/01/18 cholecalciferol (vitamin D3) 5,000 unit PO DAILY 07/06/17 11/01/18 [Vitamin D3] clopidogrel 75 mg PO DAILY 07/06/17 11/01/18 doxycycline hyclate 100 mg PO BID 07/06/17 11/01/18 fluticasone propionate [Flonase 2 spray INTRANASAL DAILY 07/06/17 11/01/18 Allergy Relief] hydrocodone-acetaminophen 1 tab PO TID 07/06/17 11/01/18 metoprolol succinate 50 mg PO DAILY 07/06/17 11/01/18 mupirocin 1 applic TOPICAL TID 07/06/17 11/01/18 nystatin 1 applic TOPICAL BID 07/06/17 11/01/18 ranitidine HCl [Zantac] 300 mg PO BEDTIME 07/06/17 11/01/18 simvastatin 20 mg PO QPM 07/06/17 11/01/18 amitriptyline 50 - 100 mg PO BEDTIME PRN 02/27/18 11/01/18 amlodipine 5 mg PO [id number] 02/27/18 11/01/18 camphor-eucalyptus oil-menthol 1 applic TOPICAL PRN PRN 02/27/18 11/01/18 [Vicks Vaporub] diphenhydramine HCl [Benadryl Itch 1 applic TOPICAL TID-QID PRN 02/27/18 11/01/18 Stopping] diphenhydramine-zinc acetate 1 applic TOPICAL QID PRN 02/27/18 11/01/18 [Benadryl Itch Stopping] lidocaine HCl 5 ml MUCOUS MEMBRANE Q4H PRN 02/27/18 11/01/18 [id number] 1 applic TOPICAL PRN PRN 02/27/18 11/01/18 [Neosporin + Pain Relief] ondansetron 8 mg PO Q8H PRN 02/27/18 11/01/18 quetiapine 25 mg PO DAILY 02/27/18 11/01/18 Allergies Allergy/AdvReac Type Severity Reaction Status Date / Time cefuroxime Allergy Unknown Verified 11/01/18 15:08 clarithromycin Allergy Unknown Verified 11/01/18 15:08 codeine Allergy Unknown Verified 11/01/18 15:08 fluticasone Allergy Unknown Verified 11/01/18 15:08 iodine Allergy Unknown Verified 11/01/18 15:08 levofloxacin Allergy Unknown Verified 11/01/18 15:08 Penicillins Allergy Unknown Verified 11/01/18 15:08 povidone-iodine Allergy Unknown Verified 11/01/18 15:08 [From Betadine] procaine Allergy Unknown Verified 11/01/18 15:08 salmeterol Allergy Unknown Verified 11/01/18 15:08 soap [From Betadine] Allergy Unknown Verified 11/01/18 15:08 fentanyl AdvReac Intermediate Confusion Verified 11/01/18 15:08 vancomycin [From Vancocin] AdvReac Intermediate Rash Verified 11/01/18 15:08 Review of Systems Review of Systems Narrative: Denies ? fever ? cold ? chills ? chest pain ? dyspnea ? orthopnea ? wheezing ? abdominal pain ? change to bowel or bladder habits ? nausea vomiting ? skin changes ? rashes ROS Unobtainable: All systems reviewed & are unremarkable except as noted in HPI and below Patient History Medical History Diabetes (Acute) History of left above knee amputation (Acute) Hypertension (Acute) Social History Smoking Status: Never smoker Smoking Status: Never smoker alcohol intake frequency: 0-2 drinks per day Substance Use Type: does not use Exam Narrative Exam Narrative: General: Healthy appearing, in no acute distress. Able to give a complete and coherent history. Well-nourished well-developed HEENT: Moist mucous membranes, normal sclera with reactive pupils, Neck: No JVD, supple Respiratory: Lungs are clear to auscultation, no wheezing no rales no rhonchi. Full and symmetrical air movement Cardiac: Regular rate and rhythm no murmurs no bruits Abdomen: Soft nontender good bowel tones, no flank pain Skin: Warm and dry, no rashes. Well perfused Neurologic: Grossly neurologically intact with no obvious asymmetries or abnormalities Extremities: Left above knee amputation. Bursal type fullness along the stump. There is no significant warmth, redness, traumatic pain, bruising, ecchymosis. Psych: Cooperative, appropriate insight and affect Initial Vital Signs Initial Vital Signs: Vital Signs Temperature 98.7 F 01/21/19 13:25 Pulse Rate 88 01/21/19 13:25 Respiratory Rate 18 01/21/19 13:25 Pulse Oximetry 97 01/21/19 13:25 Course Vital Signs Vital signs: Vital Signs - 8 hr 01/21/19 13:25 01/21/19 13:31 01/21/19 15:00 Temperature 98.7 F Pulse Rate 88 84 Respiratory Rate 18 15 Blood Pressure [Left Arm] 176/103 H 186/117 H Blood Pressure [Right Arm] Pulse Oximetry 97 96 01/21/19 16:09 Temperature Pulse Rate Respiratory Rate Blood Pressure [Left Arm] Blood Pressure [Right Arm] 186/84 H Pulse Oximetry MDM - Skin/Abscess/Foreign Bdy Differential Diagnosis Differential diagnosis: Likely abscess of skin or subcutaneous tissue and cellulitis Medical Records Attestation: I reviewed the patient's medical records. MDM Narrative Medical decision making narrative: I reviewed findings and concerns with Dr. Brody, orthopedic surgeon. He too agreed that a needle aspiration of the presumed inflamed bursal collection in the stump would be inappropriate given that she currently has no signs or symptoms of infection. This is reviewed with the patient. Offered the option of compression dressing with Cale wrap however she declined recognizing that the stump is small enough in shape in a way that likely is not going to make compression wrapping manageable. She will follow up with her primary care physician Discharge Plan Departure Patient Disposition: Home Clinical Impression: AKA stump complication Discharge Date/Time: 01/21/19 17:04 Instructions: DI for Wound Infection Activity Restrictions/Additional Instructions: Thank you for coming in today I do agree that you do have some fullness on the bottom of your stump on the left side. However at this time it does not look like it is infected or like there is bleeding into that area. I discussed the possibility of draining part of it for diagnosis with our orthopedic surgeon confectionery maker, together we decided that the risks of developing infection doing this were higher than the benefits. At this time I believe it is safe for you to go home. Please follow up with her primary care provider if you are getting worse, the swelling is getting worse or you notice redness fever, increasing pain or new symptoms. I wish you the best Prescriptions: No Action gabapentin [Neurontin] 300 MG capsule 300 mg PO HS Qty: 0 RF: 0 pantoprazole 40 MG tablet,delayed release (DR/EC) 40 mg PO BID Qty: 0 RF: 0 potassium chloride [Klor-Con 10] 10 MEQ tablet extended release 10 meq PO BID Qty: 0 RF: 0 doxycycline hyclate 100 mg Capsule 100 mg PO BID RF: 0 clopidogrel 75 mg Tablet 75 mg PO DAILY RF: 0 aspirin [Aspir-81] 81 mg Tablet,Delayed Release (Dr/Ec) 81 mg PO DAILY RF: 0 metoprolol succinate 50 mg Tablet Extended Release 24 Hr 50 mg PO DAILY RF: 0 ranitidine HCl [Zantac] 300 mg Tablet 300 mg PO BEDTIME RF: 0 hydrocodone-acetaminophen 10-325 mg Tablet 1 tab PO TID RF: 0 simvastatin 20 mg Tablet 20 mg PO QPM RF: 0 nystatin 100,000 unit/gram Cream 1 applic TOPICAL BID RF: 0 mupirocin 2 % Ointment 1 applic TOPICAL TID RF: 0 fluticasone propionate [Flonase Allergy Relief] 50 mcg/actuation [place],Suspension 2 spray INTRANASAL DAILY RF: 0 cholecalciferol (vitamin D3) [Vitamin D3] 5,000 unit Tablet 5,000 unit PO DAILY RF: 0 quetiapine 25 mg Tablet 25 mg PO DAILY RF: 0 diphenhydramine HCl [Benadryl Itch Stopping] 2 % Gel 1 applic TOPICAL TID-QID PRN (Reason: Itching) RF: 0 diphenhydramine-zinc acetate [Benadryl Itch Stopping] 1-0.1 % Cream 1 applic TOPICAL QID PRN (Reason: Itching) RF: 0 amlodipine 5 mg Tablet 5 mg PO [id number] RF: 0 amitriptyline 50 mg Tablet 50 - 100 mg PO BEDTIME PRN (Reason: Sleep) RF: 0 lidocaine HCl 2 % Solution 5 ml MUCOUS MEMBRANE Q4H PRN (Reason: unknown) RF: 0 ondansetron 4 mg Tablet,Disintegrating 8 mg PO Q8H PRN (Reason: Nausea) RF: 0 mxalaanl-qjboczmev-opfbymzeq [Neosporin + Pain Relief] 3.5-10,000-10 mg-unit-mg/gram Cream 1 applic Topical PRN PRN (Reason: unknown) RF: 0 camphor-eucalyptus oil-menthol [Vicks Vaporub] 4.7-1.2-2.6 % Ointment 1 applic Topical PRN PRN (Reason: unknown) RF: 0 Referrals: Wilfredo Sofia MD [Primary Care Provider] -
[2019-01-21 16:09] VITALS: BP 186/84
== END 2019-01-21 17:04 | disposition home or self-care (01) ==
PROVIDERS: Emergency Provider Emergency Medicine; PCP Internal Medicine
DX: T87.9 Unspecified complications of amputation stump (principal)
CPT/HCPCS: 99281

== ENCOUNTER 2019-06-07 17:21 | Emergency (ER) | payer MEDICARE, OTHER, SELFPAY ==
[2019-06-07 17:25] VITALS: BP 185/112; PULSE 75; RESP 16; TEMP 36.9; O2SAT 97
--- NOTE | 2019-06-07 17:59 | ED_ITS ---
HPI - Abdominal Pain <Delia IvanGRAHAM - Last Filed: 06/07/19 21:48> General Chief Complaint: Abdominal Pain Stated Complaint: states abd hernia is ready to blow up Time Seen by Provider: 06/07/19 17:49 Source: patient Mode of arrival: Wheelchair Limitations: no limitations History of Present Illness HPI narrative: 84yo female with history of left leg amputation, and hypertension, presents to the ED for increasing abdominal pain around her hernia. She states she has a known hernia in this area, was seen by the surgeon about 3 weeks ago and was told ?wait to have surgery until it pops ?. Patient has noticed it has increased in size and she reports a constant dull aching 4/10 pain. She states the hernia decrease in size when she lies flat and increases in size when she sits up. Patient denies any fevers, chills, nausea, vomiting, diarrhea, chest pain, shortness of breath, or any other concerns. Related Data Home Medications Medication Instructions Recorded Confirmed gabapentin [Neurontin] 300 mg PO HS #0 04/23/16 11/01/18 pantoprazole 40 mg PO BID #0 04/23/16 06/07/19 potassium chloride [Klor-Con 10] 10 meq PO BID #0 04/23/16 06/07/19 aspirin [Aspir-81] 81 mg PO DAILY 07/06/17 11/01/18 cholecalciferol (vitamin D3) 5,000 unit PO DAILY 07/06/17 11/01/18 [Vitamin D3] clopidogrel 75 mg PO DAILY 07/06/17 06/07/19 doxycycline hyclate 100 mg PO BID 07/06/17 11/01/18 fluticasone propionate [Flonase 2 spray INTRANASAL DAILY 07/06/17 11/01/18 Allergy Relief] hydrocodone-acetaminophen 1 tab PO TID 07/06/17 06/07/19 metoprolol succinate 50 mg PO DAILY 07/06/17 11/01/18 mupirocin 1 applic TOPICAL TID 07/06/17 11/01/18 nystatin 1 applic TOPICAL BID 07/06/17 11/01/18 ranitidine HCl [Zantac] 300 mg PO BEDTIME 07/06/17 11/01/18 simvastatin 20 mg PO QPM 05/30/18 04/30/20 amitriptyline 50 - 100 mg PO BEDTIME PRN 02/27/18 06/07/19 amlodipine 5 mg PO [id number] 02/27/18 11/01/18 camphor-eucalyptus oil-menthol 1 applic TOPICAL PRN PRN 02/27/18 11/01/18 [Vicks Vaporub] diphenhydramine HCl [Benadryl Itch 1 applic TOPICAL TID-QID PRN 02/27/18 11/01/18 Stopping] diphenhydramine-zinc acetate 1 applic TOPICAL QID PRN 02/27/18 11/01/18 [Benadryl Itch Stopping] lidocaine HCl 5 ml MUCOUS MEMBRANE Q4H PRN 02/27/18 11/01/18 scjonimg-qjacyydrr-jyzflnytf 1 applic TOPICAL PRN PRN 02/27/18 11/01/18 [Neosporin + Pain Relief] ondansetron 8 mg PO Q8H PRN 02/27/18 06/07/19 quetiapine 25 mg PO DAILY 02/27/18 11/01/18 Allergies Allergy/AdvReac Type Severity Reaction Status Date / Time cefuroxime Allergy Unknown Verified 11/01/18 15:08 clarithromycin Allergy Unknown Verified 11/01/18 15:08 codeine Allergy Unknown Verified 11/01/18 15:08 fluticasone Allergy Unknown Verified 11/01/18 15:08 iodine Allergy Unknown Verified 11/01/18 15:08 levofloxacin Allergy Unknown Verified 11/01/18 15:08 Penicillins Allergy Unknown Verified 11/01/18 15:08 povidone-iodine Allergy Unknown Verified 11/01/18 15:08 [From Betadine] procaine Allergy Unknown Verified 11/01/18 15:08 salmeterol Allergy Unknown Verified 11/01/18 15:08 soap [From Betadine] Allergy Unknown Verified 11/01/18 15:08 fentanyl AdvReac Intermediate Confusion Verified 11/01/18 15:08 vancomycin [From Vancocin] AdvReac Intermediate Rash Verified 11/01/18 15:08 Review of Systems <GRAHAM Mullen - Last Filed: 06/07/19 21:48> Review of Systems Narrative: REVIEW OF SYSTEMS: GENERAL: Denies fever, chills, malaise, or wt. loss. HENT: No head trauma or sore throat. EYES: No vision changes. CARDIOVASCULAR: No chest pain. RESPIRATORY: No shortness of breath or cough. GASTROINTESTINAL: Complains of abdominal hernia with increasing pain, see HPI GENITOURINARY: No flank pain, urinary incontinence, hesitancy, frequency, or dysuria. MUSCULOSKELETAL: No trauma. INTEGUMENTARY: No rash, lesions, or pruritus. NEURO: No headaches. PSYCH: No behavior or mood changes. Patient History <GRAHAM Mullen - Last Filed: 06/07/19 21:48> Medical History Diabetes (Acute) History of left above knee amputation (Acute) Hypertension (Acute) Social History Smoking Status: Never smoker Smoking Status: Never smoker alcohol intake frequency: 0-2 drinks per day Substance Use Type: does not use Exam <GRAHAM Mullen - Last Filed: 06/07/19 21:48> Initial Vital Signs Initial Vital Signs: Vital Signs Temperature 98.4 F 06/07/19 17:25 Pulse Rate 75 06/07/19 17:25 Respiratory Rate 16 06/07/19 17:25 Blood Pressure 185/112 H 06/07/19 17:25 Pulse Oximetry 97 06/07/19 17:25 PHYSICAL EXAMINATION: GENERAL: Well groomed, alert, and cooperative. Answers questions promptly and appropriately. Vital signs noted. HENT: Normocephalic, atraumatic. EYES: Conjunctiva pink, sclera white, no periorbital swelling. CARDIOVASCULAR: Regular rate. RESPIRATORY: Normal respiratory rate, trachea midline, airway patent. No stridor, nasal flaring or accessory muscle use. GASTROINTESTINAL: Bowel sounds normoactive. Abdomen is soft, a softball size hernia noted to left side of umbilicus, masses reduced with slight pressure, tenderness to this area noted before and after reduction. No organomegaly. GENITALURINARY: No flank tenderness. MUSCULOSKELETAL: Normal gait and coordination. Equal tone and mass bilaterally. EXTREMITIES: CMS intact, no pedal edema. SKIN: Warm, dry, soft, appropriate color for ethnicity. No lesions, rashes, or wounds to visualized areas. NEURO: Alert and Oriented X 3. Good coordination. No ataxia, or sensory deficits, or cognitive issues. PSYCH: Appropriate affect and mood. <Catalino Rizo DO - Last Filed: 06/08/19 00:37> Initial Vital Signs Initial Vital Signs: Vital Signs Temperature 98.4 F 06/07/19 17:25 Pulse Rate 75 06/07/19 17:25 Respiratory Rate 16 06/07/19 17:25 Blood Pressure 185/112 H 06/07/19 17:25 Pulse Oximetry 97 06/07/19 17:25 Scores <GRAHAM Mullen - Last Filed: 06/07/19 21:48> HEART Score Heart Score history: Slightly Suspicious Heart Score EKG: Normal Heart Score Age: > or = 65 years old Heart Score risk factors: 1-2 risk factors Heart Score troponin: < or = to normal limit Heart Score Total: 3 Course <GRAHAM Mullen - Last Filed: 06/07/19 21:48> Course Course Narrative: Patient is unsure of reaction to iodine, she states she has had contrast in the past without a reaction. We discussed benefits and risks of CT iodine reaction as well as benefits and risks of Benadryl and Solu-Medrol. Patient opted to have Benadryl and avoid Solu-Medrol at this time. Patient reported to nursing that she felt ?able into my chest ?. She states this last happened when her bowel was perforated and the fluid leaked into her chest. She states the feeling happened 3 times in lasted briefly. She denies any shortness of breath or dizziness during this time. Repeat EKG was completed, troponin was drawn at this time. Orders Ordered: ED Orders 06/07/19 17:58 CT abdomen pelvis w con Stat 06/07/19 18:18 Complete Blood Count AUTO DIFF Stat Comprehensive Metabolic Panel Stat Lipase Stat 06/07/19 20:44 EKG-12 Lead Stat 06/07/19 20:55 Troponin & CK Cardiac Panel Stat Discontinued Medications Diphenhydramine HCl (Benadryl) 25 mg IV NOW ONE Stop: 06/07/19 18:13 Last Admin: 06/07/19 18:45 Dose: 25 mg Documented by: SHEYLA Sodium Chloride (Normal Saline 0.9%) 1,000 mls @ 150 mls/hr IV CONT ADA Last Infusion: 06/07/19 21:57 Dose: 0 mls/hr Documented by: Admin: 06/07/19 18:44 Dose: 150 mls/hr Documented by: SHEYLA Reevaluation(s) Reevaluation #1: Patient staffed with Dr. Lyles, discussed history, examination, and test. Patient staffed with Dr. Rizo, discussed test results and plan. 2105: Spoke with Dr. Lama about patient's CT results, symptoms, and la boratory work. She recommend follow-up outpatient on Tuesday. Did not recommend antibiotics. Vital Signs Vital signs: Vital Signs - 8 hr 06/07/19 17:25 06/07/19 19:47 06/07/19 21:07 Temperature 98.4 F Pulse Rate 75 81 58 L Respiratory Rate 16 24 21 Blood Pressure 185/112 H Blood Pressure [Left Arm] 178/84 H 190/91 H Pulse Oximetry 97 99 100 06/07/19 22:08 Temperature Pulse Rate 87 Respiratory Rate 14 Blood Pressure 198/117 H Blood Pressure [Left Arm] Pulse Oximetry 96 <Catalino Rizo, DO - Last Filed: 06/08/19 00:37> Orders Ordered: ED Orders 06/07/19 17:58 CT abdomen pelvis w con Stat 06/07/19 18:18 Complete Blood Count AUTO DIFF Stat Comprehensive Metabolic Panel Stat Lipase Stat 06/07/19 20:44 EKG-12 Lead Stat 06/07/19 20:55 Troponin & CK Cardiac Panel Stat Discontinued Medications Diphenhydramine HCl (Benadryl) 25 mg IV NOW ONE Stop: 06/07/19 18:13 Last Admin: 06/07/19 18:45 Dose: 25 mg Documented by: SHEYLA Sodium Chloride (Normal Saline 0.9%) 1,000 mls @ 150 mls/hr IV CONT ADA Last Infusion: 06/07/19 21:57 Dose: 0 mls/hr Documented by: Admin: 06/07/19 18:44 Dose: 150 mls/hr Documented by: SHEYLA Vital Signs Vital signs: Vital Signs - 8 hr 06/07/19 17:25 06/07/19 19:47 06/07/19 21:07 Temperature 98.4 F Pulse Rate 75 81 58 L Respiratory Rate 16 24 21 Blood Pressure 185/112 H Blood Pressure [Left Arm] 178/84 H 190/91 H Pulse Oximetry 97 99 100 06/07/19 22:08 Temperature Pulse Rate 87 Respiratory Rate 14 Blood Pressure 198/117 H Blood Pressure [Left Arm] Pulse Oximetry 96 MDM - Abdominal Pain <Delia GRAHAM Ivan - Last Filed: 06/07/19 21:48> Medical Records Attestation: I reviewed the patient's medical records. Lab Data Attestation: I reviewed the patient's lab results. Result diagrams: 06/07/19 18:18 06/07/19 18:18 Labs: Lab Results 06/07/19 06/07/19 06/07/19 Range/Units 18:18 18:18 20:55 WBC 5.3 (4.5-11.0) X10^3/uL RBC 4.64 (4.0-5.2) X10^6/uL Hgb 10.9 L (12.0-16.0) g/dL Hct 34.6 L (36-46) % MCV 74.7 L (80-100) fL MCH 23.4 L (26-34) PG MCHC 31.3 (30-36) % RDW 16.5 H (11.6-14.8) % Plt Count 261 (150-400) X10^3/uL Neut % (Auto) 63.6 (50-75) % Lymph % (Auto) 25.2 (25-40) % Sterling % (Auto) 6.8 (3-14) % Eos % (Auto) 2.4 (2-4) % Baso % (Auto) 2.0 (0-2) % Neut # (Auto) 3400 (5815-7430) /uL Lymph # (Auto) 1400 (1826-2012) /uL Sterling # (Auto) 400 (0-900) /uL Eos # (Auto) 100 (0-450) /uL Baso # (Auto) 100 (0-100) /uL Sodium 135 L (137-145) mmol/L Potassium 4.2 (3.4-5.1) mmol/L Chloride 102 (98-107) mmol/L Carbon Dioxide 28 (22-32) mmol/L BUN 17 (7-17) mg/dL Creatinine 0.60 (0.52-1.04) mg/dL Estimated GFR > 60.0 (>60) mL/min BUN/Creatinine Ratio 28.3 H (6-22) Glucose 91 (80-110) mg/dL Calcium 9.5 (8.4-10.2) mg/dL Total Bilirubin 0.3 (0.2-1.3) mg/dL AST 22 (14-36) IU/L ALT 10 (<35) IU/L Alkaline Phosphatase 105 (38-126) U/L Total Creatine Kinase 41 (30-135) U/L CK-MB (CK-2) TNP CK-MB (CK-2) Rel Index TNP Troponin I < 0.012 (0.01-0.034) ng/mL Total Protein 7.0 (6.3-8.2) g/dL Albumin 4.0 (3.5-5.0) g/dL Globulin 3.0 (1.7-4.1) g/dL Albumin/Globulin Ratio 1.3 (1.0-2.8) Lipase 76 (23-300) U/L Imaging Data CT scan - abdomen/pelvis: Radiologist's Impression: [place] [address] CT Scan Report Signed Patient: Rowan Guerra EMR#: [id number] : 7Acct:[id number] Age/Sex: 84 / FDate of Service: 06/07/19 Loc: ED Accession Number: [id number] Procedure: CT abdomen pelvis w con Ordering Provider: Delia Ivan PROCEDURE: CT ABDOMEN PELVIS W CON INDICATIONS: h/o hernia with increased pain. TECHNIQUE: After the administration of intravenous contrast, 5 mm thick sections acquired from the diaphragm to the symphysis. 5 mm coronal and sagittal reformats were acquired. For radiation dose reduction, the following was used: automated exposure control, adjustment of mA and/or kV according to patient size. COMPARISON: [facility], CT, CT ANGIO CHEST PE PROTOCOL, 02/27/2018, 13:06. [facility], CT, CT ABDOMEN PELVIS W CON, 02/27/2018, 13:06. FINDINGS: Image quality: Excellent. ABDOMEN: Lung bases: Lung bases are clear. Heart size is normal. Large hiatal hernia. Solid organs: Liver is normal in size and enhancement. Gallbladder is surgically absent. CBD is prominent but tapers distally and appears similar to the prior CT from 2019. Minimal intrahepatic ductal dilatation. Pancreas enhances normally. Spleen is normal in size and enhancement. No adrenal nodules. Kidneys demonstrate normal size and enhancement, without hydronephrosis. Peritoneum and bowel and abdominal wall: Extensive abnormal thickening and enhancement surrounding the redundant transverse colon deep to the ventral abdominal wall scar. There is soft tissue thickening at the ventral abdominal wall hernia site as well as within the subcutaneous fat. These findings are new compared to CT 02/27/2018. Hyperdense nodule measuring 1 cm, (2/39). No bowel obstruction. Sigmoid colon diverticulosis. Normal appendix. No pneumatosis intestinalis or pneumoperitoneum. Nodes and vessels: No retroperitoneal or mesenteric adenopathy by size criteria. Aorta and inferior vena cava are normal in size. Extensive calcified atherosclerotic plaque. Miscellaneous: No ventral hernias. PELVIS: Genitourinary: Small right lateral bladder wall diverticulum, (2/64). Uterus is surgically absent. There is a peritonecele, (5/36). Miscellaneous: No inguinal hernias or adenopathy. Bones: No suspicious bony lesions. No vertebral body compression fractures. Mild anterolisthesis of L4 on L5. Extensive degenerative change. IMPRESSION: 1. Extensive abnormal soft tissue thickening and enhancement surrounding the transverse colon and surrounding the ventral abdominal wall hernia repair site. This could represent an abnormal granulomatous type reaction versus more acute infectious/inflammatory etiology. Cannot exclude underlying malignancy. 2. No bowel obstruction. No free fluid. Additional findings: Stable mild biliary ductal dilatation. Large hiatal hernia. Pelvic floor laxity. Bladder diverticulum. Dictated by: Rickie Ray M.D. on 06/07/2019 at 19:28 Approved by: Rickie Ray M.D. on 06/07/2019 at 19:52 ECG Data Interpretation: 1900: Sinus rhythm, first-degree AV block. Rate 70, IA interval 252. QTC 438. No ST elevation or ST depression. No T-wave abnormality. EKG also viewed by Dr. Rizo per protocol. 2050: Sinus rhythm with first-degree AV block. Rate 65, IA interval 240, QTC 445. No ST elevation or ST depression. No T-wave abnormality. Significant artifact. EKG also viewed by Dr. Rizo per protocol. MDM Narrative Medical decision making narrative: 84-year-old female presenting to the emergency department with abdominal pain and history of a hernia which is reducible. CT shows some surrounding inflammation without bowel incarceration or a specific acute infectious process. There is some question about malignancy on CT. Differential includes inflammatory changes due to shifting hernia. Less likely infectious etiology due to lack of other symptoms such as tachycardia, fever, severe pain, vomiting, or localized abscess seen on CT. Patient's pain is tolerable, she was encouraged to follow up with the surgeon on Tuesday. Patient was given very strict ED return precautions for new or worsening symptoms. Later on and patient's stay, patient developed a feeling of ?gas in her chest ?, I am unsure the exact cause of patient's irritation, this may be related to GERD versus gas. Less likely cardiac etiology due to description of pain, HEART score of 3,normal EKGs, normal laboratory work including troponin, and lack of other symptoms such as shortness of breath or worsening pain with activity and movement. <Catalino Rizo DO - Last Filed: 06/08/19 00:37> Lab Data Labs: Lab Results 06/07/19 06/07/19 06/07/19 Range/Units 18:18 18:18 20:55 WBC 5.3 (4.5-11.0) X10^3/uL RBC 4.64 (4.0-5.2) X10^6/uL Hgb 10.9 L (12.0-16.0) g/dL Hct 34.6 L (36-46) % MCV 74.7 L (80-100) fL MCH 23.4 L (26-34) PG MCHC 31.3 (30-36) % RDW 16.5 H (11.6-14.8) % Plt Count 261 (150-400) X10^3/uL Neut % (Auto) 63.6 (50-75) % Lymph % (Auto) 25.2 (25-40) % Sterling % (Auto) 6.8 (3-14) % Eos % (Auto) 2.4 (2-4) % Baso % (Auto) 2.0 (0-2) % Neut # (Auto) 3400 (8948-9181) /uL Lymph # (Auto) 1400 (7790-1553) /uL Sterling # (Auto) 400 (0-900) /uL Eos # (Auto) 100 (0-450) /uL Baso # (Auto) 100 (0-100) /uL Sodium 135 L (137-145) mmol/L Potassium 4.2 (3.4-5.1) mmol/L Chloride 102 (98-107) mmol/L Carbon Dioxide 28 (22-32) mmol/L BUN 17 (7-17) mg/dL Creatinine 0.60 (0.52-1.04) mg/dL Estimated GFR > 60.0 (>60) mL/min BUN/Creatinine Ratio 28.3 H (6-22) Glucose 91 (80-110) mg/dL Calcium 9.5 (8.4-10.2) mg/dL Total Bilirubin 0.3 (0.2-1.3) mg/dL AST 22 (14-36) IU/L ALT 10 (<35) IU/L Alkaline Phosphatase 105 (38-126) U/L Total Creatine Kinase 41 (30-135) U/L CK-MB (CK-2) TNP CK-MB (CK-2) Rel Index TNP Troponin I < 0.012 (0.01-0.034) ng/mL Total Protein 7.0 (6.3-8.2) g/dL Albumin 4.0 (3.5-5.0) g/dL Globulin 3.0 (1.7-4.1) g/dL Albumin/Globulin Ratio 1.3 (1.0-2.8) Lipase 76 (23-300) U/L Discharge Plan Departure Patient Disposition: Home Clinical Impression: Abdominal pain Qualifiers: Abdominal location: generalized Qualified Code(s): R10.84 - Generalized abdominal pain Discharge Date/Time: 06/07/19 22:12 Instructions: Acute Abdominal Pain Activity Restrictions/Additional Instructions: Thank you for entrusting me with your care today. As discussed, laboratory work is within normal limits, your CT shows some inflammation around your abdominal hernia. I spoke with Dr. Tavares, the general surgeon, who recommends that you call the office on Tuesday to follow up with them. After discussion with the general surgeon, no antibiotics are needed at this time. Please continue to take her other medications as prescribed. Return to the emergency department for any new or worsening symptoms such as worsening pain, high fevers, vomiting, syncope, change in stool patterns, chest pain, or any other concerns. Prescriptions: No Action gabapentin [Neurontin] 300 MG capsule 300 mg PO HS Qty: 0 RF: 0 pantoprazole 40 MG tablet,delayed release (DR/EC) 40 mg PO BID Qty: 0 RF: 0 potassium chloride [Klor-Con 10] 10 MEQ tablet extended release 10 meq PO BID Qty: 0 RF: 0 doxycycline hyclate 100 mg Capsule 100 mg PO BID RF: 0 clopidogrel 75 mg Tablet 75 mg PO DAILY RF: 0 aspirin [Aspir-81] 81 mg Tablet,Delayed Release (Dr/Ec) 81 mg PO DAILY RF: 0 metoprolol succinate 50 mg Tablet Extended Release 24 Hr 50 mg PO DAILY RF: 0 ranitidine HCl [Zantac] 300 mg Tablet 300 mg PO BEDTIME RF: 0 hydrocodone-acetaminophen 10-325 mg Tablet 1 tab PO TID RF: 0 simvastatin 20 mg Tablet 20 mg PO QPM RF: 0 nystatin 100,000 unit/gram Cream 1 applic TOPICAL BID RF: 0 mupirocin 2 % Ointment 1 applic TOPICAL TID RF: 0 fluticasone propionate [Flonase Allergy Relief] 50 mcg/actuation [place],Suspension 2 spray INTRANASAL DAILY RF: 0 cholecalciferol (vitamin D3) [Vitamin D3] 5,000 unit Tablet 5,000 unit PO DAILY RF: 0 quetiapine 25 mg Tablet 25 mg PO DAILY RF: 0 diphenhydramine HCl [Benadryl Itch Stopping] 2 % Gel 1 applic TOPICAL TID-QID PRN (Reason: Itching) RF: 0 diphenhydramine-zinc acetate [Benadryl Itch Stopping] 1-0.1 % Cream 1 applic TOPICAL QID PRN (Reason: Itching) RF: 0 amlodipine 5 mg Tablet 5 mg PO [id number] RF: 0 amitriptyline 50 mg Tablet 50 - 100 mg PO BEDTIME PRN (Reason: Sleep) RF: 0 lidocaine HCl 2 % Solution 5 ml MUCOUS MEMBRANE Q4H PRN (Reason: unknown) RF: 0 ondansetron 4 mg Tablet,Disintegrating 8 mg PO Q8H PRN (Reason: Nausea) RF: 0 dlvckezh-xdrnbvcby-ikjgyqlbq [Neosporin + Pain Relief] 3.5-10,000-10 mg-unit- mg/gram Cream 1 applic Topical PRN PRN (Reason: unknown) RF: 0 camphor-eucalyptus oil-menthol [Vicks Vaporub] 4.7-1.2-2.6 % Ointment 1 applic Topical PRN PRN (Reason: unknown) RF: 0 Referrals: Wilfredo Sofia MD [Primary Care Provider] - Delores Tavares MD [Physician] - <Catalino Rizo DO - Last Filed: 06/08/19 00:37> Cosign ED Attending Cosignature Attestation: I was immediately available in the department for consultation. This documentation has been reviewed and I agree with assessment and plan. Supervised by Catalino Rizo DO
--- NOTE | 2019-06-07 18:02 | PC.NURSE ---
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 She is currently taking doxycycline to treat it.
[2019-06-07 18:26] LABS: Add Manual Diff / Slide Review NO; Basophils Absolute Auto 100 /uL (0-100); Eosinophils Absolute Auto 100 /uL (0-450); Eosinophils Percent Auto 2.4 % (2-4); Hematocrit 34.6 % (36-46); Hemoglobin 10.9 g/dL (12.0-16.0); Lymphocytes Absolute Auto 1400 /uL (1100-4500); Lymphocytes Percent Auto 25.2 % (25-40); Mean Corpuscular HGB Conc 31.3 % (30-36); Mean Corpuscular Hemoglobin 23.4 PG (26-34); Mean Corpuscular Volume 74.7 fL (80-100); Monocytes Absolute Auto 400 /uL (0-900); Monocytes Percent Auto 6.8 % (3-14); Neutrophils Absolute Auto 3400 /uL (1500-7000); Neutrophils Percent Auto 63.6 % (50-75); Platelet Count 261 X10^3/uL (150-400); Red Blood Cell Count 4.64 X10^6/uL (4.0-5.2); Red Cell Distribution Width 16.5 % (11.6-14.8); White Blood Cell Count 5.3 X10^3/uL (4.5-11.0)
[2019-06-07 18:38] LABS: Alanine Aminotransferase 10 IU/L (<35); Albumin Globulin Ratio 1.3 (1.0-2.8); Alkaline Phosphatase 105 U/L (38-126); Aspartate Aminotransferase 22 IU/L (14-36); BUN Creatinine Ratio 28.3 (6-22); Bilirubin Total 0.3 mg/dL (0.2-1.3); Blood Urea Nitrogen 17 mg/dL (7-17); Calcium 9.5 mg/dL (8.4-10.2); Carbon Dioxide 28 mmol/L (22-32); Chloride 102 mmol/L (98-107); Estimated Glomerular Filt Rate > 60.0 mL/min (>60); Glucose 91 mg/dL (80-110); HEMOLYSIS < 15 (0-50); Lipase 76 U/L (23-300); Potassium 4.2 mmol/L (3.4-5.1); Sodium 135 mmol/L (137-145)
[2019-06-07] MEDS: SODIUM CHLORIDE 0.9% 1,000 ML 150 ML IV (18:44)
[2019-06-07] MEDS: diphenhydrAMINE 50 MG/ML VIAL 25 MG IV (18:45)
[2019-06-07 19:47] VITALS: BP 178/84; PULSE 81; RESP 24; O2SAT 99
[2019-06-07 21:07] VITALS: BP 190/91; PULSE 58; RESP 21; O2SAT 100
--- NOTE | 2019-06-07 21:10 | PC.NURSE ---
Patient's hands and feet present with poor cap refill. Her hands and feet are cold to touch. I had to replace the pulse ox from left hand to right hand. She told me that her daughter from type 1 diabetes. The patient's blood sugar was 48 mg/dl at 2116
[2019-06-07 21:14] LABS: Creatine Kinase 41 U/L (30-135)
[2019-06-07 21:26] LABS: Troponin I < 0.012 ng/mL (0.01-0.034)
[2019-06-07 22:08] VITALS: BP 198/117; PULSE 87; RESP 14; O2SAT 96
== END 2019-06-07 22:12 | disposition home or self-care (01) ==
PROVIDERS: Emergency Provider Nurse Practitioner; PCP Internal Medicine
DX: R10.84 Generalized abdominal pain (principal); I10 Essential (primary) hypertension
CPT/HCPCS: 36415; 74177; 80053; 82550; 83690; 84484; 85025; 93005; 96361; 96374; 99284; J1200; Q9967

== ENCOUNTER → 2019-07-24 10:25 | Outpatient (CLI) | payer MEDICARE, OTHER, SELFPAY ==
[2019-07-24 11:34] LABS: Add Manual Diff / Slide Review NO; Basophils Absolute Auto 100 /uL (0-100); Basophils Percent Auto 1.9 % (0-2); Eosinophils Absolute Auto 100 /uL (0-450); Eosinophils Percent Auto 2.7 % (2-4); Hematocrit 33.4 % (36-46); Hemoglobin 10.8 g/dL (12.0-16.0); Lymphocytes Absolute Auto 900 /uL (1100-4500); Lymphocytes Percent Auto 22.3 % (25-40); Mean Corpuscular HGB Conc 32.3 % (30-36); Mean Corpuscular Hemoglobin 24.3 PG (26-34); Mean Corpuscular Volume 75.2 fL (80-100); Monocytes Absolute Auto 300 /uL (0-900); Monocytes Percent Auto 6.9 % (3-14); Neutrophils Absolute Auto 2700 /uL (1500-7000); Neutrophils Percent Auto 66.2 % (50-75); Platelet Count 242 X10^3/uL (150-400); Red Blood Cell Count 4.44 X10^6/uL (4.0-5.2); Red Cell Distribution Width 17.1 % (11.6-14.8); White Blood Cell Count 4.1 X10^3/uL (4.5-11.0)
[2019-07-24 11:44] LABS: Hemoglobin A1C% w Est Avg Glu 5.4 % (4.0-6.0)
[2019-07-24 11:59] LABS: Alanine Aminotransferase 13 IU/L (<35); Albumin 3.9 g/dL (3.5-5.0); Albumin Globulin Ratio 1.4 (1.0-2.8); Alkaline Phosphatase 87 U/L (38-126); Aspartate Aminotransferase 26 IU/L (14-36); BUN Creatinine Ratio 24.6 (6-22); Bilirubin Total 0.4 mg/dL (0.2-1.3); Blood Urea Nitrogen 17 mg/dL (7-17); Calcium 9.6 mg/dL (8.4-10.2); Carbon Dioxide 28 mmol/L (22-32); Chloride 104 mmol/L (98-107); Cholesterol 142 mg/dL (140-199); Estimated Glomerular Filt Rate > 60.0 mL/min (>60); Globulin 2.7 g/dL (1.7-4.1); Glucose 141 mg/dL (80-110); HDL Cholesterol 59 mg/dL (40-60); HEMOLYSIS < 15 (0-50); LDL Cholesterol Calculated 50 mg/dL (<100); Potassium 4.2 mmol/L (3.4-5.1); Sodium 138 mmol/L (137-145); Total Protein 6.6 g/dL (6.3-8.2); Triglycerides 165 mg/dL (35-150)
[2019-07-24 12:31] LABS: TSH w/ Reflex to FT4 1.54 uIU/mL (0.47-4.68)
== END ==
PROVIDERS: PCP Internal Medicine; Referring Provider Internal Medicine; Visit Provider Internal Medicine
DX: E11.9 Type 2 diabetes mellitus without complications (principal); R63.4 Abnormal weight loss; E78.2 Mixed hyperlipidemia; N39.0 Urinary tract infection, site not specified
CPT/HCPCS: 36415; 80053; 80061; 83036; 84443; 85025

== ENCOUNTER → 2019-08-21 19:58 | Outpatient (ROUT) | payer MEDICARE, OTHER, SELFPAY ==
[2019-08-21 20:20] LABS: Add Manual Diff / Slide Review NO; Basophils Absolute Auto 100 /uL (0-100); Basophils Percent Auto 1.2 % (0-2); Eosinophils Absolute Auto 100 /uL (0-450); Eosinophils Percent Auto 2.1 % (2-4); Hematocrit 34.2 % (36-46); Hemoglobin 10.9 g/dL (12.0-16.0); Lymphocytes Absolute Auto 1300 /uL (1100-4500); Lymphocytes Percent Auto 25.1 % (25-40); Mean Corpuscular HGB Conc 31.7 % (30-36); Mean Corpuscular Hemoglobin 23.8 PG (26-34); Mean Corpuscular Volume 75.1 fL (80-100); Monocytes Absolute Auto 400 /uL (0-900); Monocytes Percent Auto 7.7 % (3-14); Neutrophils Absolute Auto 3400 /uL (1500-7000); Neutrophils Percent Auto 63.9 % (50-75); Platelet Count 259 X10^3/uL (150-400); Red Blood Cell Count 4.56 X10^6/uL (4.0-5.2); Red Cell Distribution Width 17.5 % (11.6-14.8); White Blood Cell Count 5.3 X10^3/uL (4.5-11.0)
[2019-08-21 20:27] LABS: HEMOLYSIS < 15 (0-50); Iron 34 ug/dL (37-170)
[2019-08-21 20:38] LABS: Percent Iron Saturation 10 % (15-50); Total Iron Binding Capacity 326 ug/dL (265-497); Transferrin 267 mg/dL (206-381)
[2019-08-21 21:02] LABS: Ferritin 9 ng/mL (11-264)
== END ==
PROVIDERS: PCP Internal Medicine; Visit Provider Internal Medicine
DX: D64.9 Anemia, unspecified (principal)
CPT/HCPCS: 82728; 83540; 83550; 85025

== ENCOUNTER → 2019-10-13 10:59 | Outpatient (CLI) | payer MEDICARE, OTHER, SELFPAY ==
[2019-10-15 13:43] LABS: COVID19 Sendout Not Detected (Not Detect)
== END ==
PROVIDERS: PCP Internal Medicine; Visit Provider Physician Assistant
DX: Z11.59 Encounter for screening for other viral diseases (principal)
CPT/HCPCS: 87635

== ENCOUNTER 2019-10-16 10:42 | Day surgery (SDC) | payer MEDICARE, OTHER, SELFPAY ==
[2019-10-16] VITALS (18 sets, daily range): BP systolic 94–156; BP diastolic 58–92; PULSE 61–113; RESP 13–20; TEMP 35.7–36.9; O2SAT 95–100; BMI 19.6
[2019-10-16] MEDS: LACTATED RINGERS 1,000 ML 42 ML IV ×2 (11:53→14:12)
--- NOTE | 2019-10-16 12:48 | PM.PREOP ---
Pre-operative Note COVID-19 COVID-19 status: Negative Interval Note History & Physical reviewed/Exam performed by Physician: Yes Changes to H&P: No
[2019-10-16] MEDS: CLINDAMYCIN 900 MG/50 ML PIGGYBACK 50 MG IV ×2 (13:04→21:44)
--- NOTE | 2019-10-16 13:31 | SUR.OPER ---
Supine on padded OR bed, head on pillow, arms secured on padded arm boards at <90 degrees abduction, legs uncrossed, safety belt at thigh, tape over blanket over lower legs. Pillow under right knee, (AKA on left).
[2019-10-16] MEDS: BUPIVACAINE 0.25% (PF) VIAL 30 ML INJ (13:39)
[2019-10-16] MEDS: fentaNYL 100 MCG/2 ML INJ IV ×3 (15:27→15:54)
--- NOTE | 2019-10-16 15:27 | P.OP_ITS ---
Operative Date/Time/Diagnoses Date of procedure: 10/16/19 Time of procedure: 15:27 Pre-op diagnosis: Incarcerated ventral hernia Post-op diagnosis: same Procedure & Clinicians Procedure: Exploratory laparotomy Lysis of adhesions Ventral hernia repair with mesh Same procedure as scheduled: Yes Indications: 84-year-old woman with a chronically incarcerated ventral hernia. History of numerous abdominal surgeries including the use of mesh. Surgeon: Alexis Woodard Client Relationship Executive: Hunter Parada Click Yes if Unassisted: Yes Anesthesia Type: General Operative Notes Findings: Fascial defect of 8 by 10 cm containing colon Closure Type: primary Specimen(s): none sent Estimated Blood Loss (mL): 50 Procedure in detail: Patient was brought to the operating room placed supine on the table. She received 900 mg of clindamycin prior to skin incision. An SCD was placed on her lower extremity. General anesthesia was induced and she was intubated with an endotracheal tube. Jones catheter was sterilely placed. She was prepped and draped in sterile fashion. Time-out was performed. Made a skin incision through the prior midline laparotomy scar. The abdomen was entered superiorly to the fascial defect. The subcutaneous tissue was grasped elevated and sharply incised. Using meticulous sharp dissection the abdomen was carefully entered. There were numerous adhesions between the intestinal content and the anterior the abdominal wall. These adhesions were sharply lysed and this permitted the colon to fall out of the fascial defect. The fascia was then grasped and elevated and ensured that all adhesions to the abdominal wall in the vicinity of the fascial defect were completely cleared. The peritoneum was cleaned off the edges of the fascial defect. The fascial defect measured 8 cm in width by 10 cm in length. Skin flaps were already partially formed by the laxity of her tissue but were extended superficial to the anterior rectus sheath bilaterally to the level of the a semi lunaris. The abdomen was checked for hemostasis and was irrigated. Four stay sutures were placed in the fascial corners under direct visualization in order to anchor the mesh later. At this point the fascial edges easily came together without tension. Next the fascia was closed in interrupted fashion using 0 Ethibond suture in [id number] fashion. A 10 x 15 cm large pore soft permanent mesh was selected. The mesh was placed in onlay fashion over the anterior rectus and was anchored in place using the previously placed stay sutures. Several additional fixating sutures were used to anchor the mesh to the anterior rectus of fascia. Satisfied with hemostasis I then excised the redundant skin and soft tissue in order to reapproximate the closure. A 19 [place] Dillon drain was placed in the lower aspect of the abdomen in was laid over the mesh beneath the skin flaps. This was secured with nylon suture. The subcutaneous tissue was then reapproximated using 3 0 Vicryl the skin closed with rachel. Complications: none Post-operative Condition: stable Disposition: observation
--- NOTE | 2019-10-16 15:57 | SUR.PHASEI ---
Pt c/o occasional difficulty taking a deep breath with loud inspiration. Pt states that she feels like she needs to cough to clear her airway. Pillow given with instructions to support abdomen. Had Dr. Woodard see patient, gave her PO ice chips, which she states did help. Resp unlabored, silent at present.
--- NOTE | 2019-10-16 16:06 | SUR.PHASEI ---
1602 Pt stated that she feels like her airway 'opened up.' Continues taking ice chips 1612 Report called to SANDRA Peralta. Pt awake, resp unlabored. Rates pain 4/10
--- NOTE | 2019-10-16 16:34 | SUR.PHASEI ---
1634 Transported to by two [facility] RNs. Pt A&O, resp unlabored. Skin warm and dry.
[2019-10-16] MEDS: LACTATED RINGERS 1,000 ML 100 ML IV (17:10)
[2019-10-16] MEDS: OXYCODONE IR 5 MG TABLET PO ×2 (17:10→21:48)
[2019-10-16] MEDS: IBUPROFEN 600 MG TABLET PO (17:12)
[2019-10-16] MEDS: ACETAMINOPHEN 325 MG TABLET 650 MG PO (17:13)
[2019-10-16] MEDS: FAMOTIDINE 20 MG TABLET 40 MG PO (21:44)
[2019-10-16] MEDS: GABAPENTIN 300 MG CAPSULE PO (21:44)
[2019-10-16] MEDS: PANTOPRAZOLE 40 MG TABLET PO (21:44)
--- NOTE | 2019-10-16 23:47 | PC.NURSE ---
Admit/Evening Shift Note- PAtient arrived to room via bed at 1645 from PACU. Admit questions done, physical assessment done, and mediaiotns reviewed. Patient alert and oriented and able to make needs known to staff. Midline dressing C/D/I. Abdominal binder in place. No complaints of pain. No complaints of N/V. Oriented patient to bed and bed controls, room,bathroom, lights, phone, menu, and call tapia/TV remote. Safety measures in place. Will continue to monitor.
[2019-10-17] MEDS: ACETAMINOPHEN 325 MG TABLET 650 MG PO ×2 (01:20→05:07)
[2019-10-17] MEDS: IBUPROFEN 600 MG TABLET PO ×2 (01:23→05:07)
[2019-10-17 03:00] VITALS: O2SAT 93
[2019-10-17] MEDS: LACTATED RINGERS 1,000 ML 100 ML IV (03:28)
[2019-10-17 03:41] VITALS: BP 123/73; PULSE 67; RESP 18; TEMP 36.3; O2SAT 93
[2019-10-17] MEDS: CLINDAMYCIN 900 MG/50 ML PIGGYBACK 50 MG IV (05:09)
[2019-10-17 07:50] VITALS: BP 120/80; PULSE 63; RESP 15; TEMP 36.7; O2SAT 94
[2019-10-17] MEDS: IRBESARTAN 150 MG TABLET 300 MG PO (08:23)
[2019-10-17] MEDS: PANTOPRAZOLE 40 MG TABLET PO (08:23)
--- NOTE | 2019-10-17 10:23 | PC.NURSE ---
Addendum entered by Bernadette Gaffney R.N. 10/17/19 10:26: Pt abdominal dsg changed to large Coversite. Incision intact and without drainage. Original Note: Pt IV removed. 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 Went over d/c instructions with Pt - discussed d/c meds, time of last dose, reviewed stroke education, s/s of infection and when to call MD. Reviewed TAM drain care. Reminded Pt to follow up as scheduled. Encouraged Pt to drink fluids to prevent constipation or dehydration and to follow up as scheduled. Pt will be taken out via w/c to Son's POV with all belongings.
--- NOTE | 2019-10-17 11:16 | PM.DS.1 ---
History of Present Illness History of Present Illness Date Patient Seen: 10/17/19 Time Patient Seen: 11:17 Chief complaint: OPERATING ROOM Narrative: 84-year-old female with the incarcerated recurrent incisional ventral hernia here for elective repair. Discharge Providers Provider Discharge Date: 10/17/19 Primary care physician: Wilfredo Sofia MD Consults: 10/16/19 17:58 Consult to Dietitian, Adult Routine Comment: Reason For Exam: weight loss of over 50lbs Consult to Pastoral Services Routine Comment: patient request Discharge provider: Alexis Woodard MD Summary Hospital Course Discharge Diagnosis: Incarcerated recurrent incisional ventral hernia Hospital Course: Patient underwent a exploratory laparotomy, lysis of adhesions, ventral hernia repair with mesh. She was kept overnight for observation which was unremarkable. On the date of discharge she is feeling well pain she is back to her baseline. Exam Vital Signs (past 8 hours): - 10/17/19 03:41 10/17/19 07:50 Temperature 97.4 F L 98.1 F Pulse Rate 67 63 Respiratory Rate 18 15 Blood Pressure 123/73 120/80 Pulse Oximetry 93 94 Oxygen Delivery Method Room Air Oxygen Flow Rate 0 Narrative Exam Narrative: General elderly female alert oriented no acute distress Chest nonlabored respirations Abdomen midline incision clean dry intact with rachel. TAM drain left lower quadrant with serosanguineous output. Abdomen is appropriately tender to palpation. Discharge Plan Discharge Plan Patient Disposition: Home Discharge Med Rec/Prescriptions Prescriptions: New sulfamethoxazole-trimethoprim [Bactrim DS] 800-160 mg tablet 1 tab PO BID Qty: 14 RF: 0 oxycodone 5 mg tablet 5 mg PO QID PRN (Reason: pain) Qty: 30 RF: 0 Continued gabapentin [Neurontin] 300 MG capsule 300 mg PO HS Qty: 0 RF: 0 pantoprazole 40 MG tablet,delayed release (DR/EC) 40 mg PO BID Qty: 0 RF: 0 potassium chloride [Klor-Con 10] 10 MEQ tablet extended release 10 meq PO BID Qty: 0 RF: 0 docusate sodium 100 mg tablet 100 mg PO DAILY RF: 0 irbesartan 300 mg tablet 300 mg PO DAILY RF: 0 polyethylene glycol 3350 [Miralax] 17 gram/dose powder 17 gram PO DAILY RF: 0 doxycycline hyclate 100 mg Capsule 100 mg PO BID RF: 0 clopidogrel 75 mg Tablet 75 mg PO DAILY RF: 0 ranitidine HCl [Zantac] 300 mg Tablet 300 mg PO BEDTIME RF: 0 hydrocodone-acetaminophen 10-325 mg Tablet 1 tab PO TID RF: 0 simvastatin 20 mg Tablet 20 mg PO QPM RF: 0 fluticasone propionate [Flonase Allergy Relief] 50 mcg/actuation [place],Suspension 2 spray INTRANASAL DAILY RF: 0 cholecalciferol (vitamin D3) [Vitamin D3] 5,000 unit Tablet 5,000 unit PO DAILY RF: 0 amitriptyline 50 mg Tablet 50 - 100 mg PO BEDTIME PRN (Reason: Sleep) RF: 0 Follow up/Referrals: Wilfredo Sofia MD [Primary Care Provider] - Alexis Woodard MD [Physician] - 10/22/19 11:30 am (Drain removal) Discharge Orders: Discharge (Order); Ordered 10/17/19 Ordered By: Alexis Woodadr Provider Discharge Instructions Diet: Carb-consistent/Diabetic Activity: No lifting >20 lbs x 6 weeks. Walking only for exercise for 6 weeks. No [address] while taking narcotics. Skin/Wound/Dressing Care Report to your healthcare provider any signs of infection, such as:: chills, fever, increased pain and unusual redness Dressing: Empty drain as needed. Ok for gauze over midline incision. May shower Visit Report/Discharge Packet Instructions: Oxycodone, DI for Ventral Hernia, Sulfamethoxazole/Trimethoprim (By mouth) Discharge Data Primary Care Provider: Wilfredo Sofia V Attending Provider: Alexis Woodard
--- NOTE | 2019-10-17 11:29 | PC.NURSE ---
Patient just discharged home. Dressing to ml incision changed by hali handy. Jonas were all intact. TAM draining teaching done, IV taken out. Patient just down to ride.
--- NOTE | 2019-10-17 12:17 | CM.IDA ---
Initial DCP Assessment Note Patient is an 84 yo female, resident of [place]. Patient is POD#1 from elective hernia repair PCP: Wilfredo Sofia Payer: BILL/Devyn Reviewed chart. Patient discharged today and plans to go home w/son to assist as needed. SANDRA Valente states no needs from this FINANCIAL WRITER. Patient eager to return home and son to p/u at 1100, no FINANCIAL WRITER needs identified before return home today JW
== END 2019-10-17 11:32 | disposition home or self-care (01) ==
LOC: OR 10:46 → AC 12:55
PROVIDERS: PCP Internal Medicine; Referring Provider Surgery; Visit Provider Surgery
PROC: (CPT 49000; principal; 2019-10-16 13:00)
DX: K43.6 Other and unspecified ventral hernia with obstruction, without gangrene (principal); E11.9 Type 2 diabetes mellitus without complications; I10 Essential (primary) hypertension; I48.91 Unspecified atrial fibrillation; Z79.01 Long term (current) use of anticoagulants
CPT/HCPCS: 49566; 49568; C1781; A9270; J0330; J1100; J2405; J2704; J3010

== ENCOUNTER → 2020-01-17 10:35 | Outpatient (CLI) | payer MEDICARE, OTHER, SELFPAY ==
[2019-10-18 15:19] VITALS: BMI 19.6
[2020-01-17 11:18] LABS: COVID19 -Nasal RAPID Negative (Negative)
== END ==
PROVIDERS: PCP Internal Medicine; Visit Provider Physician Assistant
DX: Z11.59 Encounter for screening for other viral diseases (principal)
CPT/HCPCS: 87635

== ENCOUNTER → 2020-06-10 09:22 | Outpatient (CLI) | payer OTHER, SELFPAY ==
[2019-10-18 15:19] VITALS: BMI 19.6
--- NOTE | 2020-06-10 09:26 | DI.RAD.S_ITS ---
PROCEDURE: XR CHEST 2V INDICATIONS: COUGH TECHNIQUE: 2 views of the chest were acquired. COMPARISON: [facility], CR, XR CHEST 2V, 08/26/2017, 14:34. [facility], CR, XR CHEST 2V, 07/06/2017, 20:38. FINDINGS: Surgical changes and devices: None. Lungs and pleura: Lungs are clear. No pleural effusions or pneumothorax. Mediastinum: Mediastinal contours are normal except for a moderate-sized hiatal hernia behind the heart. Heart size is normal. Bones and chest wall: No suspicious bony abnormalities. Soft tissues appear unremarkable. IMPRESSION: Source of cough is not found. Moderate-sized hiatal hernia behind the heart, previously present. Dictated by: Artur Almonte M.D. on 06/10/2020 at 11:47 Approved by: Artru Almonte M.D. on 06/10/2020 at 11:47
== END ==
PROVIDERS: PCP Internal Medicine; Referring Provider Internal Medicine; Visit Provider Internal Medicine
DX: R05 Cough (principal); K44.9 Diaphragmatic hernia without obstruction or gangrene
CPT/HCPCS: 71046

== ENCOUNTER 2020-07-18 19:02 | Emergency (ER) | payer OTHER, SELFPAY ==
[2019-10-18 15:19] VITALS: BMI 19.6
[2020-07-18] VITALS (22 sets, daily range): BP systolic 130–206; BP diastolic 72–163; PULSE 67–93; RESP 15–37; TEMP 36.7–37; O2SAT 96–100
--- NOTE | 2020-07-18 20:27 | PC.NURSE ---
Pt states she had similar episode of dizziness 2 weeks ago, at the time she had bronchitis and symptoms resolved on their own. States she has extensive history of inner ear issues that cause her to feel dizzy at times and does feel congestion in her ears today as well as her nose.
[2020-07-18 21:02] LABS: Add Manual Diff / Slide Review NO; Alanine Aminotransferase 13 IU/L (<35); Albumin 3.7 g/dL (3.5-5.0); Albumin Globulin Ratio 1.4 (1.0-2.8); Alkaline Phosphatase 78 U/L (38-126); Aspartate Aminotransferase 35 IU/L (14-36); BUN Creatinine Ratio 32.1 (6-22); Basophils Absolute Auto 100 /uL (0-100); Basophils Percent Auto 1.8 % (0-2); Bilirubin Total 0.4 mg/dL (0.2-1.3); Blood Urea Nitrogen 17 mg/dL (7-17); Calcium 9.6 mg/dL (8.4-10.2); Carbon Dioxide 28 mmol/L (22-32); Chloride 104 mmol/L (98-107); Creatine Kinase 39 U/L (30-135); Eosinophils Absolute Auto 100 /uL (0-450); Eosinophils Percent Auto 1.9 % (2-4); Estimated Glomerular Filt Rate > 60.0 mL/min (>60); Globulin 2.6 g/dL (1.7-4.1); Glucose 117 mg/dL (80-110); HEMOLYSIS 43 (0-50); Hemoglobin 7.6 g/dL (12.0-16.0); Lipase 63 U/L (23-300); Lymphocytes Absolute Auto 700 /uL (1100-4500); Lymphocytes Percent Auto 10.7 % (25-40); Mean Corpuscular HGB Conc 29.3 % (30-36); Mean Corpuscular Volume 64.9 fL (80-100); Monocytes Absolute Auto 500 /uL (0-900); Monocytes Percent Auto 7.1 % (3-14); Neutrophils Absolute Auto 5400 /uL (1500-7000); Neutrophils Percent Auto 78.5 % (50-75); Platelet Count 326 X10^3/uL (150-400); Potassium 4.4 mmol/L (3.4-5.1); Red Blood Cell Count 4.01 X10^6/uL (4.0-5.2); Red Cell Distribution Width 18.3 % (11.6-14.8); Sodium 137 mmol/L (137-145); Total Protein 6.3 g/dL (6.3-8.2); White Blood Cell Count 6.9 X10^3/uL (4.5-11.0)
[2020-07-18 21:14] LABS: Troponin I < 0.012 ng/mL (0.01-0.034)
[2020-07-18 21:24] LABS: Anisocytosis 1+; Microcytosis 2+
[2020-07-18 21:25] LABS: Hypochromasia 1+; Platelet Estimate Adequate on smear
--- NOTE | 2020-07-18 21:39 | ED.GENADULT ---
HPI - General Adult General Chief complaint: Dizziness Stated complaint: dizzy, nauseated Time Seen by Provider: 07/18/20 20:32 Source: patient Mode of arrival: Wheelchair Limitations: no limitations History of Present Illness HPI narrative: Patient is a 85-year-old female who is here for evaluation of dizziness and nausea. She states the symptoms have only occurred over the past day or so however she has reported being very fatigued in an lack of meningeal over the past several weeks. She states that the nausea only occurs when she is dizzy. She describes the dizziness as a room spinning sensation and does occur when she moves her head. She does feel like her symptoms have improved somewhat at the time my evaluation for with they were aware in the day. Related Data Home Medications Medication Instructions Recorded Confirmed gabapentin [Neurontin] 300 mg PO HS #0 04/23/16 01/17/20 pantoprazole 40 mg PO BID #0 04/23/16 01/17/20 potassium chloride [Klor-Con 10] 10 meq PO BID #0 04/23/16 01/17/20 cholecalciferol (vitamin D3) 5,000 unit PO DAILY 07/06/17 01/17/20 [Vitamin D3] clopidogrel 75 mg PO DAILY 07/06/17 01/17/20 doxycycline hyclate 100 mg PO BID 07/06/17 01/17/20 fluticasone propionate [Flonase 2 spray INTRANASAL DAILY 07/06/17 01/17/20 Allergy Relief] hydrocodone-acetaminophen 1 tab PO TID 07/06/17 01/17/20 ranitidine HCl [Zantac] 300 mg PO BEDTIME 07/06/17 01/17/20 simvastatin 20 mg PO QPM 07/06/17 01/17/20 amitriptyline 50 - 100 mg PO BEDTIME PRN 02/27/18 01/17/20 docusate sodium 100 mg tablet 100 mg PO DAILY 10/10/19 01/17/20 irbesartan 300 mg tablet 300 mg PO DAILY 10/10/19 01/17/20 polyethylene glycol 3350 17 17 gram PO DAILY 10/10/19 01/17/20 gram/dose oral powder Previous Rx's Medication Instructions Recorded oxycodone 5 mg PO QID PRN #30 tab 10/17/19 sulfamethoxazole-trimethoprim 1 tab PO BID #14 tab 10/17/19 [Bactrim DS] azithromycin 250 mg tablet See Rx Instructions PO .COMPLEX #6 01/18/20 tab meclizine 25 mg PO TID PRN #20 tab 07/19/20 Allergies Allergy/AdvReac Type Severity Reaction Status Date / Time fluticasone Allergy Unknown Verified 07/18/20 19:11 procaine Allergy Unknown Verified 07/18/20 19:11 cefuroxime Allergy Verified 07/18/20 19:11 clarithromycin Allergy Verified 07/18/20 19:11 levofloxacin Allergy Verified 07/18/20 19:11 Penicillins Allergy Verified 07/18/20 19:11 salmeterol Allergy Verified 07/18/20 19:11 vancomycin Allergy Verified 07/18/20 19:11 fentanyl AdvReac Severe Confusion Verified 07/18/20 19:11 codeine AdvReac Unknown Headache Verified 07/18/20 19:11 Review of Systems Constitutional Constitutional: Reports fatigue, Denies fever(s), Denies headache(s), Reports lethargy and Reports malaise Eyes Eyes: Reports system reviewed and no additional complaints, except as documented ENT Ears, Nose, Mouth, and Throat: Reports vertigo and Denies headache(s) Cardiovascular Cardiovascular: Denies chest pain and Denies dyspnea Respiratory Respiratory: Denies dyspnea Gastrointestinal Gastrointestinal: Denies abdominal pain, Reports nausea and Reports vomiting Musculoskeletal Musculoskeletal: Reports system reviewed and no additional complaints, except as documented Integumentary/Breasts Skin/Breast: Denies lesions and Denies rash Neurologic Neurologic: Reports vertigo and Denies headache(s) Psychiatric Psychiatric: Reports system reviewed and no additional complaints, except as documented Endocrine Endocrine: Reports fatigue Hematologic/Lymphatic Comments: Is on Plavix Allergic/Immunologic Allergic/Immunologic: Reports system reviewed and no additional complaints, except as documented Patient History Medical History Diabetes History of left above knee amputation Hypertension Surgical History H/O ventral hernia repair Social History marital status: unknown household members: none Smoking Status: Never smoker alcohol intake: never substance use type: does not use Smoking Status: Never smoker alcohol intake frequency: 0-2 drinks per day Substance Use Type: does not use Exam Initial Vital Signs Initial Vital Signs: Vital Signs Temperature 98.0 F 07/18/20 19:08 Pulse Rate 70 07/18/20 19:08 Respiratory Rate 16 07/18/20 19:08 Blood Pressure 206/91 H 07/18/20 19:08 Pulse Oximetry 97 07/18/20 19:08 Const General: cooperative and comfortable Limitations: mental status not altered HENMT Head: normal to inspection and normocephalic Eyes General: appearance normal, both eyes and all related structures Chest Chest: No crepitus Resp Effort & Inspection: normal respiratory effort Auscultation: clear to auscultation bilaterally Cardio Rate: regular rate Rhythm: regular rhythm GI Inspection: non-distended Palpation: soft Skin Lesions: no lesions Rashes: no rashes Neuro General: patient alert, patient awake and patient oriented x3 Other: Patient was unable to reproduce the symptoms tilting her head back and look from side to side which was will cause the symptoms earlier today Extrem General: capillary refill normal Other: Left lower extremity amputation Psych Appearance: grossly normal and well kempt Course Orders Ordered: ED Orders 07/18/20 21:54 Packed Cells Stat Type and Screen Stat Vital Signs Vital signs: Vital Signs - 8 hr 07/18/20 22:00 07/18/20 22:01 07/18/20 22:30 Temperature Pulse Rate 87 93 H 80 Respiratory Rate 18 16 20 Blood Pressure Pulse Oximetry 97 97 97 07/18/20 22:36 07/18/20 23:00 07/18/20 23:01 Temperature Pulse Rate 83 86 83 Respiratory Rate 37 H 22 22 Blood Pressure 181/88 H 182/72 H Pulse Oximetry 96 96 97 07/18/20 23:08 07/18/20 23:23 07/18/20 23:27 Temperature 98.6 F 98.6 F Pulse Rate 77 76 81 Respiratory Rate 18 17 22 Blood Pressure 182/72 H 196/74 H 196/74 H Pulse Oximetry 97 07/18/20 23:30 07/19/20 00:00 07/19/20 00:01 Temperature 97.4 F L Pulse Rate 71 70 70 Respiratory Rate 23 22 26 H Blood Pressure 177/111 H 165/132 H Pulse Oximetry 97 99 97 07/19/20 00:30 07/19/20 00:31 07/19/20 00:35 Temperature 97.4 F L Pulse Rate 76 80 73 Respiratory Rate 24 22 24 Blood Pressure 192/75 H 169/80 H Pulse Oximetry 94 07/19/20 01:01 07/19/20 01:45 Temperature Pulse Rate 84 79 Respiratory Rate 22 20 Blood Pressure 195/87 H 219/102 H Pulse Oximetry 94 96 Medical Decision Making Lab Data Lab results reviewed: Yes I reviewed the patient's lab results. Result diagrams: 07/18/20 20:18 07/18/20 20:18 Labs: Lab Results 07/18/20 07/18/20 07/18/20 Range/Units 20:18 20:18 20:18 WBC 6.9 (4.5-11.0) X10^3/uL RBC 4.01 (4.0-5.2) X10^6/uL Hgb 7.6 L (12.0-16.0) g/dL Hct 26.0 L (36-46) % MCV 64.9 L (80-100) fL MCH 19.0 L (26-34) PG MCHC 29.3 L (30-36) % RDW 18.3 H (11.6-14.8) % Plt Count 326 (150-400) X10^3/uL Neut % (Auto) 78.5 H (50-75) % Lymph % (Auto) 10.7 L (25-40) % [place] % (Auto) 7.1 (3-14) % Eos % (Auto) 1.9 L (2-4) % Baso % (Auto) 1.8 (0-2) % Neut # (Auto) 5400 (1812-4185) /uL Lymph # (Auto) 700 L (8756-8403) /uL [place] # (Auto) 500 (0-900) /uL Eos # (Auto) 100 (0-450) /uL Baso # (Auto) 100 (0-100) /uL Platelet Estimate Adequate on smear RBC Morphology See below Hypochromasia 1+ H Anisocytosis 1+ H Microcytosis 2+ H Sodium 137 (137-145) mmol/L Potassium 4.4 (3.4-5.1) mmol/L Chloride 104 (98-107) mmol/L Carbon Dioxide 28 (22-32) mmol/L BUN 17 (7-17) mg/dL Creatinine 0.53 (0.52-1.04) mg/dL Estimated GFR > 60.0 (>60) mL/min BUN/Creatinine Ratio 32.1 H (6-22) Glucose 117 H (80-110) mg/dL Calcium 9.6 (8.4-10.2) mg/dL Total Bilirubin 0.4 (0.2-1.3) mg/dL AST 35 (14-36) IU/L ALT 13 (<35) IU/L Alkaline Phosphatase 78 (38-126) U/L Total Creatine Kinase 39 (30-135) U/L CK-MB (CK-2) TNP CK-MB (CK-2) Rel Index TNP Troponin I < 0.012 (0.01-0.034) ng/mL Total Protein 6.3 (6.3-8.2) g/dL Albumin 3.7 (3.5-5.0) g/dL Globulin 2.6 (1.7-4.1) g/dL Albumin/Globulin Ratio 1.4 (1.0-2.8) Lipase 63 (23-300) U/L Blood Type Antibody Screen Crossmatch 07/18/20 Range/Units 21:54 WBC (4.5-11.0) X10^3/uL RBC (4.0-5.2) X10^6/uL Hgb (12.0-16.0) g/dL Hct (36-46) % MCV (80-100) fL MCH (26-34) PG MCHC (30-36) % RDW (11.6-14.8) % Plt Count (150-400) X10^3/uL Neut % (Auto) (50-75) % Lymph % (Auto) (25-40) % [place] % (Auto) (3-14) % Eos % (Auto) (2-4) % Baso % (Auto) (0-2) % Neut # (Auto) (2929-0473) /uL Lymph # (Auto) (0928-5745) /uL [place] # (Auto) (0-900) /uL Eos # (Auto) (0-450) /uL Baso # (Auto) (0-100) /uL Platelet Estimate RBC Morphology Hypochromasia Anisocytosis Microcytosis Sodium (137-145) mmol/L Potassium (3.4-5.1) mmol/L Chloride (98-107) mmol/L Carbon Dioxide (22-32) mmol/L BUN (7-17) mg/dL Creatinine (0.52-1.04) mg/dL Estimated GFR (>60) mL/min BUN/Creatinine Ratio (6-22) Glucose (80-110) mg/dL Calcium (8.4-10.2) mg/dL Total Bilirubin (0.2-1.3) mg/dL AST (14-36) IU/L ALT (<35) IU/L Alkaline Phosphatase (38-126) U/L Total Creatine Kinase (30-135) U/L CK-MB (CK-2) CK-MB (CK-2) Rel Index Troponin I (0.01-0.034) ng/mL Total Protein (6.3-8.2) g/dL Albumin (3.5-5.0) g/dL Globulin (1.7-4.1) g/dL Albumin/Globulin Ratio (1.0-2.8) Lipase (23-300) U/L Blood Type A Positive Antibody Screen Negative Crossmatch See Detail ECG Data Attestation: I personally reviewed and interpreted this ECG as follows: Prior ECG tracings: not available for review Interpretation: Sinus rhythm Ventricular rate is 73 Sinus arrhythmia First degree AV block peer interval 2 6-year-old milliseconds Normal QRS Normal QTC No ST T wave changes MDM Narrative Medical decision making narrative: I have a very high suspicion based on the patient's presentation today that her vertigo is a peripheral vertigo. She was unable to reproduce it here in the emergency department was also not having any symptoms. Prior to arrival was a positional issue. She has had this in the past. Labs were obtained and the patient is anemic. She has had anemia in the past and has had blood transfusion in the past. She states she does not know why she has been anemic. She denies any change in her bowel habits. She does have a history of reflux disease. She did express that separate from the vertigo issues that brought her in today that she has felt very fatigued and weak over the past several weeks or longer. Had a discussion with her regarding the symptoms and we did discuss that potentially the symptoms could be caused by her anemia. We discussed the risks and benefits of blood transfusion. After this discussion with her family at bedside the plan will be is to transfuse her 1 unit of packed red blood cells. This was performed without incident. She was instructed that she needed to contact her primary doctor for follow-up. She expressed understanding and agreement. Discharge Plan Departure Patient Disposition: Home Clinical Impression: Anemia, Vertigo Instructions: Vertigo, DI for Vertigo Activity Restrictions/Additional Instructions: I recommend that you talk with your primary doctor about the issues that brought you to the emergency department this evening. It is important that you get further workup of your anemia. I also recommend that you look up the ?Amparo maneuver ?on YouTube like we discussed. This may help you with your vertigo. Return to the emergency department for any new or worsening symptoms Prescriptions: New meclizine 25 mg tablet 25 mg PO TID PRN (Reason: dizziness) Qty: 20 RF: 0 No Action azithromycin 250 mg tablet See Rx Instructions PO .COMPLEX Qty: 6 RF: 0 gabapentin [Neurontin] 300 MG capsule 300 mg PO HS Qty: 0 RF: 0 pantoprazole 40 MG tablet,delayed release (DR/EC) 40 mg PO BID Qty: 0 RF: 0 potassium chloride [Klor-Con 10] 10 MEQ tablet extended release 10 meq PO BID Qty: 0 RF: 0 docusate sodium 100 mg tablet 100 mg PO DAILY RF: 0 irbesartan 300 mg tablet 300 mg PO DAILY RF: 0 polyethylene glycol 3350 [Miralax] 17 gram/dose powder 17 gram PO DAILY RF: 0 doxycycline hyclate 100 mg Capsule 100 mg PO BID RF: 0 clopidogrel 75 mg Tablet 75 mg PO DAILY RF: 0 ranitidine HCl [Zantac] 300 mg Tablet 300 mg PO BEDTIME RF: 0 hydrocodone-acetaminophen 10-325 mg Tablet 1 tab PO TID RF: 0 simvastatin 20 mg Tablet 20 mg PO QPM RF: 0 fluticasone propionate [Flonase Allergy Relief] 50 mcg/actuation [place],Suspension 2 spray INTRANASAL DAILY RF: 0 cholecalciferol (vitamin D3) [Vitamin D3] 5,000 unit Tablet 5,000 unit PO DAILY RF: 0 sulfamethoxazole-trimethoprim [Bactrim DS] 800-160 mg tablet 1 tab PO BID Qty: 14 RF: 0 oxycodone 5 mg tablet 5 mg PO QID PRN (Reason: pain) Qty: 30 RF: 0 amitriptyline 50 mg Tablet 50 - 100 mg PO BEDTIME PRN (Reason: Sleep) RF: 0 Referrals: Rochelle Clements MD [Primary Care Provider] -
[2020-07-19] VITALS (7 sets, daily range): BP systolic 165–219; BP diastolic 75–132; PULSE 70–84; RESP 20–26; TEMP 36.3; O2SAT 94–99
== END 2020-07-19 01:49 | disposition home or self-care (01) ==
PROVIDERS: Emergency Provider Emergency Medicine; PCP Internal Medicine
DX: D64.9 Anemia, unspecified (principal); R42 Dizziness and giddiness; R11.0 Nausea
CPT/HCPCS: 36415; 36430; 80053; 82550; 83690; 84484; 85025; 86850; 86900; 86901; 93005; 99284; 99285; P9016

== ENCOUNTER 2020-08-17 14:03 | Emergency (ER) | payer OTHER, SELFPAY ==
[2019-10-18 15:19] VITALS: BMI 19.6
[2020-08-17] VITALS (11 sets, daily range): BP systolic 171–236; BP diastolic 69–131; PULSE 64–91; RESP 20–54; TEMP 36.4; O2SAT 97–99
[2020-08-17 14:32] LABS: Add Manual Diff / Slide Review NO; Basophils Absolute Auto 100 /uL (0-100); Basophils Percent Auto 0.7 % (0-2); Eosinophils Absolute Auto 100 /uL (0-450); Eosinophils Percent Auto 1.1 % (2-4); Hematocrit 35.6 % (36-46); Hemoglobin 11.1 g/dL (12.0-16.0); Lymphocytes Absolute Auto 1000 /uL (1100-4500); Lymphocytes Percent Auto 13.3 % (25-40); Mean Corpuscular HGB Conc 31.1 % (30-36); Mean Corpuscular Hemoglobin 21.2 PG (26-34); Mean Corpuscular Volume 68.3 fL (80-100); Monocytes Absolute Auto 600 /uL (0-900); Monocytes Percent Auto 8.2 % (3-14); Neutrophils Absolute Auto 5900 /uL (1500-7000); Neutrophils Percent Auto 76.7 % (50-75); Platelet Count 265 X10^3/uL (150-400); Red Blood Cell Count 5.22 X10^6/uL (4.0-5.2); White Blood Cell Count 7.7 X10^3/uL (4.5-11.0)
[2020-08-17 14:42] LABS: Alanine Aminotransferase 26 IU/L (<35); Albumin 3.3 g/dL (3.5-5.0); Albumin Globulin Ratio 1.2 (1.0-2.8); Alkaline Phosphatase 170 U/L (38-126); Aspartate Aminotransferase 34 IU/L (14-36); BUN Creatinine Ratio 29.1 (6-22); Bilirubin Total 0.3 mg/dL (0.2-1.3); Blood Urea Nitrogen 23 mg/dL (7-17); Calcium 9.7 mg/dL (8.4-10.2); Carbon Dioxide 26 mmol/L (22-32); Chloride 106 mmol/L (98-107); Estimated Glomerular Filt Rate > 60.0 mL/min (>60); Globulin 2.8 g/dL (1.7-4.1); Glucose 102 mg/dL (80-110); HEMOLYSIS < 15 (0-50); Lipase 113 U/L (23-300); Potassium 4.6 mmol/L (3.4-5.1); Sodium 136 mmol/L (137-145); Total Protein 6.1 g/dL (6.3-8.2)
--- NOTE | 2020-08-17 14:48 | DI.CT.S_ITS ---
PROCEDURE: CT ABDOMEN PELVIS W CON INDICATIONS: abd pain. h/o bowel obstruction / hernia TECHNIQUE: After the administration of intravenous contrast, axial sections acquired from the lung bases to the pubic symphysis. Coronal and sagittal reformats were performed. For radiation dose reduction, the following was used: automated exposure control, adjustment of mA and/or kV according to patient size. COMPARISON: [facility], CR, XR CHEST 2V, 06/10/2020, 9:24. [facility], CT, CT ABDOMEN PELVIS W CON, 06/07/2019, 19:04. [facility], CT, CT ABDOMEN PELVIS W CON, 02/27/2018, 13:06. FINDINGS: Image quality: Excellent. Lung bases: Unremarkable. A large hiatal hernia is noted. Heart: No significant findings. ABDOMEN: Liver: Unremarkable. Gallbladder: Removed. Biliary ducts: Prominence of the bile ducts can be seen, with the common bile duct measuring 1.5 cm. Pancreas: Unremarkable. Spleen: Unremarkable. Incidental note is made of an accessory splenule along the hilum of the primary spleen. Adrenal Glands: Unremarkable. Kidneys and Ureters: The kidneys enhance symmetrically, without hydronephrosis. Subcentimeter presumed bilateral renal cysts can be seen. Stomach and Bowel: Stomach, small bowel loops, and colon are unremarkable. A moderate amount of stool is seen within the colon. The previously seen abnormal soft tissue thickening involving the transverse colon is no longer seen. Peritoneum: No abnormal intraperitoneal fluid. No free air. Ventral Wall: No hernias. Apparent scarring change can be seen involving the midline of the anterior abdominal wall. Abdominal Nodes: No retroperitoneal or mesenteric adenopathy by size criteria. Vessels: Aorta and inferior vena cava are normal in size. Atherosclerotic calcification is noted. PELVIS: Pelvic Organs: This patient is status post hysterectomy. No adnexal masses are seen. Bladder: Unremarkable. Pelvic Nodes: No enlarged lymph nodes. Miscellaneous: No hernias are seen. Bones: S-shaped scoliotic curvature is seen. Relatively prominent degenerative changes are seen throughout, which are overall worst within the lower lumbar spine. IMPRESSION: There is a moderate amount of stool seen within the colon. Please correlate with an underlying history of constipation. Negative for hernia. No bowel obstruction. Status post cholecystectomy, with stable prominence of the biliary system. Incidental note is made of: Large hiatal hernia Accessory splenule Apparent scarring change seen involving the anterior abdominal wall along the midline Hysterectomy S shaped scoliosis Focal lower lumbar spine degenerative change Dictated by: Chacorta Salinas M.D. on 08/17/2020 at 14:57 Approved by: Chacorta Salinas M.D. on 08/17/2020 at 15:03
[2020-08-17] MEDS: SODIUM CHLORIDE 0.9% 1,000 ML 1000 ML IV (14:58)
[2020-08-17] MEDS: ONDANSETRON 4 MG/2 ML INJ IV (14:58)
[2020-08-17] MEDS: HYDROMORPHONE 0.5 MG INJ IV ×2 (14:58→16:39)
[2020-08-17 15:20] LABS: Hypochromasia 1+; Microcytosis 2+
--- NOTE | 2020-08-17 16:27 | ED_ITS ---
HPI - Abdominal Pain General Chief Complaint: Abdominal Pain Stated Complaint: vomitting Time Seen by Provider: 08/17/20 16:16 Source: patient Mode of arrival: Ambulatory History of Present Illness HPI narrative: The patient is a 85-year-old female who has a history of hernia and bowel obstruction presenting with decreased bowel movements epigastric pain and nausea ongoing for last 4 days. She does have a history of acid reflux as well epigastric pain radiating up into her chest seems to be quite severe. She denies any shortness of breath. No fever or chills. Concerned that there may be a blockage. Related Data Home Medications Medication Instructions Recorded Confirmed gabapentin 300 mg capsule 300 mg PO HS #0 04/23/16 01/17/20 (Neurontin) pantoprazole 40 mg tablet,delayed 40 mg PO BID #0 04/23/16 01/17/20 release potassium chloride 10 mEq 10 meq PO BID #0 04/23/16 01/17/20 tablet,extended release (Klor-Con) cholecalciferol (vitamin D3) 125 5,000 unit PO DAILY 07/06/17 01/17/20 mcg (5,000 unit) tablet (Vitamin D3) clopidogrel 75 mg tablet 75 mg PO DAILY 07/06/17 01/17/20 doxycycline hyclate 100 mg capsule 100 mg PO BID 07/06/17 01/17/20 fluticasone propionate 50 2 spray INTRANASAL DAILY 07/06/17 01/17/20 mcg/actuation nasal spray,suspension (Flonase Allergy Relief) hydrocodone 10 mg-acetaminophen 1 tab PO TID 07/06/17 01/17/20 325 mg tablet ranitidine HCl 300 mg tablet 300 mg PO BEDTIME 07/06/17 01/17/20 (Zantac) simvastatin 20 mg tablet 20 mg PO QPM 07/06/17 01/17/20 amitriptyline 50 mg tablet 50 - 100 mg PO BEDTIME PRN 02/27/18 01/17/20 docusate sodium 100 mg tablet 100 mg PO DAILY 10/10/19 01/17/20 irbesartan 300 mg tablet 300 mg PO DAILY 10/10/19 01/17/20 polyethylene glycol 3350 17 17 gram PO DAILY 10/10/19 01/17/20 gram/dose oral powder (Miralax) Previous Rx's Medication Instructions Recorded oxycodone 5 mg tablet 5 mg PO QID PRN #30 tab 10/17/19 sulfamethoxazole 800 1 tab PO BID #14 tab 10/17/19 mg-trimethoprim 160 mg tablet (Bactrim DS) azithromycin 250 mg tablet See Rx Instructions PO .COMPLEX #6 01/18/20 tab meclizine 25 mg tablet 25 mg PO TID PRN #20 tab 07/19/20 magnesium citrate 300 ml PO DAILY PRN #296 ml 08/17/20 Allergies Allergy/AdvReac Type Severity Reaction Status Date / Time fluticasone Allergy Unknown Verified 08/17/20 15:05 procaine Allergy Unknown Verified 08/17/20 15:05 cefuroxime Allergy Verified 08/17/20 15:05 clarithromycin Allergy Verified 08/17/20 15:05 levofloxacin Allergy Verified 08/17/20 15:05 Penicillins Allergy Verified 08/17/20 15:05 salmeterol Allergy Verified 08/17/20 15:05 vancomycin Allergy Verified 08/17/20 15:05 fentanyl AdvReac Severe Confusion Verified 08/17/20 15:05 codeine AdvReac Unknown Headache Verified 08/17/20 15:05 Review of Systems Review of Systems ROS Unobtainable: All systems reviewed & are unremarkable except as noted in HPI and below Constitutional Constitutional: Denies body ache(s), Denies chills, Denies fever(s) and Denies headache(s) Eyes Eyes: Denies blurry vision ENT Ears, Nose, Mouth, and Throat: Denies dizziness and Denies headache(s) Cardiovascular Cardiovascular: Reports chest pain and Denies lightheadedness Respiratory Respiratory: Denies chest congestion and Denies cough Gastrointestinal Gastrointestinal: Reports as per HPI, Reports abdominal pain, Reports constipation and Reports nausea Genitourinary Genitourinary: Denies urinary hesitancy and Denies urinary urgency Musculoskeletal Musculoskeletal: Denies back pain and Denies deformity Integumentary/Breasts Skin/Breast: Denies skin pain Neurologic Neurologic: Denies dizziness and Denies headache(s) Patient History Medical History (Updated 08/17/20 @ 18:02 by Brigid Lanza DO) Diabetes History of left above knee amputation Hypertension Surgical History H/O ventral hernia repair Social History (Reviewed 07/19/20 @ 05:50 by YOLIE Hubbard marital status: unknown household members: none Smoking Status: Never smoker alcohol intake: never substance use type: does not use Smoking Status: Never smoker alcohol intake frequency: 0-2 drinks per day Substance Use Type: does not use Exam Initial Vital Signs Initial Vital Signs: Vital Signs Temperature 97.5 F L 08/17/20 14:06 Pulse Rate 85 08/17/20 14:06 Respiratory Rate 20 08/17/20 14:06 Blood Pressure 175/69 H 08/17/20 14:06 Pulse Oximetry 99 08/17/20 14:06 GENERAL: Alert 85-year-old female appears compass and in no acute distress. CARDIOVASCULAR: Regular rate and rhythm without murmurs, rubs or gallops. RESPIRATORY: Breath sounds equal bilaterally, no wheezes rales or rhonchi. ABDOMEN: Soft, mild distention epigastric pain no right upper quadrant pain no guarding or rebound EXTREMITIES: Normal range of motion, no clubbing or edema. Neurovascularly intact. Left AKA NEUROLOGICAL: Alert and oriented x4. Normal speech SKIN: Warm, dry, no laceration, no petechiae, no rashes or lesions. Course Orders Ordered: ED Orders 08/17/20 14:14 Complete Blood Count AUTO DIFF Stat Comprehensive Metabolic Panel Stat Lipase Stat Troponin & CK Cardiac Panel Stat 08/17/20 14:48 CT abdomen pelvis w con Stat 08/17/20 16:24 EKG-12 Lead Stat Discontinued Medications Hydromorphone HCl (Hydromorphone 0.5 Mg Inj) 0.5 mg IV NOW ONE Stop: 08/17/20 14:49 Last Admin: 08/17/20 14:58 Dose: 0.5 mg Documented by: ELE Hydromorphone HCl (Hydromorphone 0.5 Mg Inj) 0.5 mg IV NOW ONE Stop: 08/17/20 16:27 Last Admin: 08/17/20 16:39 Dose: 0.5 mg Documented by: ELE Sodium Chloride (Normal Saline 0.9%) 1,000 mls @ 1,000 mls/hr IV BOLUS ONE Stop: 08/17/20 15:47 Last Infusion: 08/17/20 18:15 Dose: 0 mls/hr Documented by: Admin: 08/17/20 14:58 Dose: 1,000 mls/hr Documented by: ELE Ondansetron HCl (Ondansetron 4 Mg/2 Ml Inj) 4 mg IV NOW ONE Stop: 08/17/20 14:49 Last Admin: 08/17/20 14:58 Dose: 4 mg Documented by: ELE Pantoprazole Sodium (Pantoprazole 40 Mg Vial) 40 mg IV NOW ONE Stop: 08/17/20 16:27 Last Admin: 08/17/20 16:39 Dose: 40 mg Documented by: ELE Vital Signs Vital signs: Vital Signs - 8 hr 08/17/20 14:06 08/17/20 15:12 08/17/20 15:54 Temperature 97.5 F L Pulse Rate 85 84 70 Respiratory Rate 20 22 22 Blood Pressure 175/69 H 171/77 H Pulse Oximetry 99 97 99 08/17/20 16:00 08/17/20 16:30 08/17/20 16:36 Temperature Pulse Rate 64 81 88 Respiratory Rate 26 H 21 22 Blood Pressure 184/79 H 175/84 H Pulse Oximetry 99 08/17/20 17:00 08/17/20 17:30 08/17/20 17:31 Temperature Pulse Rate 78 76 84 Respiratory Rate 48 H 42 H 35 H Blood Pressure 176/87 H 192/93 H Pulse Oximetry 08/17/20 18:00 08/17/20 18:01 Temperature Pulse Rate 87 91 H Respiratory Rate 54 H 41 H Blood Pressure 236/131 H Pulse Oximetry MDM - Abdominal Pain Lab Data Attestation: I reviewed the patient's lab results. Result diagrams: 08/17/20 14:14 08/17/20 14:14 Labs: Lab Results 08/17/20 08/17/20 08/17/20 Range/Units 14:14 14:14 14:14 WBC 7.7 (4.5-11.0) X10^3/uL RBC 5.22 H (4.0-5.2) X10^6/uL Hgb 11.1 L (12.0-16.0) g/dL Hct 35.6 L (36-46) % MCV 68.3 L (80-100) fL MCH 21.2 L (26-34) PG MCHC 31.1 (30-36) % RDW 24.0 H (11.6-14.8) % Plt Count 265 (150-400) X10^3/uL Neut % (Auto) 76.7 H (50-75) % Lymph % (Auto) 13.3 L (25-40) % [place] % (Auto) 8.2 (3-14) % Eos % (Auto) 1.1 L (2-4) % Baso % (Auto) 0.7 (0-2) % Neut # (Auto) 5900 (2986-4233) /uL Lymph # (Auto) 1000 L (7852-9462) /uL [place] # (Auto) 600 (0-900) /uL Eos # (Auto) 100 (0-450) /uL Baso # (Auto) 100 (0-100) /uL RBC Morphology Not Reportable Hypochromasia 1+ H Microcytosis 2+ H Sodium 136 L (137-145) mmol/L Potassium 4.6 (3.4-5.1) mmol/L Chloride 106 (98-107) mmol/L Carbon Dioxide 26 (22-32) mmol/L BUN 23 H (7-17) mg/dL Creatinine 0.79 (0.52-1.04) mg/dL Estimated GFR > 60.0 (>60) mL/min BUN/Creatinine Ratio 29.1 H (6-22) Glucose 102 (80-110) mg/dL Calcium 9.7 (8.4-10.2) mg/dL Total Bilirubin 0.3 (0.2-1.3) mg/dL AST 34 (14-36) IU/L ALT 26 (<35) IU/L Alkaline Phosphatase 170 H (38-126) U/L Total Creatine Kinase 24 L (30-135) U/L CK-MB (CK-2) TNP CK-MB (CK-2) Rel Index TNP Troponin I < 0.012 (0.01-0.034) ng/mL Total Protein 6.1 L (6.3-8.2) g/dL Albumin 3.3 L (3.5-5.0) g/dL Globulin 2.8 (1.7-4.1) g/dL Albumin/Globulin Ratio 1.2 (1.0-2.8) Lipase 113 (23-300) U/L Imaging Data CT scan - abdomen/pelvis: Radiologist's Impression: PROCEDURE: CT ABDOMEN PELVIS W CON INDICATIONS: abd pain. h/o bowel obstruction / hernia TECHNIQUE: After the administration of intravenous contrast, axial sections acquired from the lung bases to the pubic symphysis. Coronal and sagittal reformats were performed. For radiation dose reduction, the following was used: automated exposure control, adjustment of mA and/or kV according to patient size. COMPARISON: [facility], CR, XR CHEST 2V, 06/10/2020, 9:24. [facility], CT, CT ABDOMEN PELVIS W CON, 06/07/2019, 19:04. [facility], CT, CT ABDOMEN PELVIS W CON, 02/27/2018, 13:06. FINDINGS: Image quality: Excellent. Lung bases: Unremarkable. A large hiatal hernia is noted. Heart: No significant findings. ABDOMEN: Liver: Unremarkable. Gallbladder: Removed. Biliary ducts: Prominence of the bile ducts can be seen, with the common bile duct measuring 1.5 cm. Pancreas: Unremarkable. Spleen: Unremarkable. Incidental note is made of an accessory splenule along the hilum of the primary spleen. Adrenal Glands: Unremarkable. Kidneys and Ureters: The kidneys enhance symmetrically, without hydronephrosis. Subcentimeter presumed bilateral renal cysts can be seen. Stomach and Bowel: Stomach, small bowel loops, and colon are unremarkable. A moderate amount of stool is seen within the colon. The previously seen abnormal soft tissue thickening involving the transverse colon is no longer seen. Peritoneum: No abnormal intraperitoneal fluid. No free air. Ventral Wall: No hernias. Apparent scarring change can be seen involving the midline of the anterior abdominal wall. Abdominal Nodes: No retroperitoneal or mesenteric adenopathy by size criteria. Vessels: Aorta and inferior vena cava are normal in size. Atherosclerotic calcification is noted. PELVIS: Pelvic Organs: This patient is status post hysterectomy. No adnexal masses are seen. Bladder: Unremarkable. Pelvic Nodes: No enlarged lymph nodes. Miscellaneous: No hernias are seen. Bones: S-shaped scoliotic curvature is seen. Relatively prominent degenerative changes are seen throughout, which are overall worst within the lower lumbar spine. IMPRESSION: There is a moderate amount of stool seen within the colon. Please correlate with an underlying history of constipation. Negative for hernia. No bowel obstruction. Status post cholecystectomy, with stable prominence of the biliary system. Incidental note is made of: Large hiatal hernia Accessory splenule Apparent scarring change seen involving the anterior abdominal wall along the midline Hysterectomy S shaped scoliosis Focal lower lumbar spine degenerative change Dictated by: Chacorta Salinas M.D. on 08/17/2020 at 14:57 ECG Data Attestation: I personally reviewed and interpreted this ECG as follows: Interpretation: Sinus arrhythmia rate 76 OK interval 244 QRS [address] ch anges or T-wave inversion MDM Narrative Medical decision making narrative: Better after Dilaudid and Protonix. CT does not show any obstruction. His she does have some stool. Recommend MiraLax or magnesium citrate. She has MiraLax at home she apparently has not been taking. At this time I do not believe this to be cardiac been ongoing for 4 days without EKG changes or troponin abnormality. Discharge Plan Departure Patient Disposition: Home Clinical Impression: Constipation Instructions: DI for Constipation Activity Restrictions/Additional Instructions: *You have been diagnosed with constipation *What to do: At this time her CT scan does show you have a large amount of stool. Blood work and heart are all reassuring. Your certainly having some acid reflux as *Continue to take medications as directed 1 bottle of magnesium citrate-take at home *Follow up with your primary care provider in 2-3 days *Return to ER if you should have increasing pain chest pain nausea vomiting persistent vomiting or any new, worsening or concerning symptoms Prescriptions: New magnesium citrate Solution 300 ml PO DAILY PRN (Reason: constipation) Qty: 296 RF: 0 No Action azithromycin 250 mg tablet See Rx Instructions PO .COMPLEX Qty: 6 RF: 0 gabapentin [Neurontin] 300 MG capsule 300 mg PO HS Qty: 0 RF: 0 pantoprazole 40 MG tablet,delayed release (DR/EC) 40 mg PO BID Qty: 0 RF: 0 potassium chloride [Klor-Con 10] 10 MEQ tablet extended release 10 meq PO BID Qty: 0 RF: 0 docusate sodium 100 mg tablet 100 mg PO DAILY RF: 0 irbesartan 300 mg tablet 300 mg PO DAILY RF: 0 polyethylene glycol 3350 [Miralax] 17 gram/dose powder 17 gram PO DAILY RF: 0 doxycycline hyclate 100 mg Capsule 100 mg PO BID RF: 0 clopidogrel 75 mg Tablet 75 mg PO DAILY RF: 0 ranitidine HCl [Zantac] 300 mg Tablet 300 mg PO BEDTIME RF: 0 hydrocodone-acetaminophen 10-325 mg Tablet 1 tab PO TID RF: 0 simvastatin 20 mg Tablet 20 mg PO QPM RF: 0 fluticasone propionate [Flonase Allergy Relief] 50 mcg/actuation [place],Suspension 2 spray INTRANASAL DAILY RF: 0 cholecalciferol (vitamin D3) [Vitamin D3] 5,000 unit Tablet 5,000 unit PO DAILY RF: 0 sulfamethoxazole-trimethoprim [Bactrim DS] 800-160 mg tablet 1 tab PO BID Qty: 14 RF: 0 oxycodone 5 mg tablet 5 mg PO QID PRN (Reason: pain) Qty: 30 RF: 0 amitriptyline 50 mg Tablet 50 - 100 mg PO BEDTIME PRN (Reason: Sleep) RF: 0 meclizine 25 mg tablet 25 mg PO TID PRN (Reason: dizziness) Qty: 20 RF: 0 Referrals: Rochelle Clements MD [Primary Care Provider] -
[2020-08-17] MEDS: PANTOPRAZOLE 40 MG VIAL IV (16:39)
[2020-08-17 16:46] LABS: Creatine Kinase 24 U/L (30-135)
[2020-08-17 16:57] LABS: Troponin I < 0.012 ng/mL (0.01-0.034)
== END 2020-08-17 18:17 | disposition home or self-care (01) ==
PROVIDERS: Emergency Provider Emergency Medicine; PCP Internal Medicine
DX: K59.00 Constipation, unspecified (principal); R11.0 Nausea; R07.9 Chest pain, unspecified
CPT/HCPCS: 36415; 74177; 80053; 82550; 83690; 84484; 85025; 93005; 93010; 96361; 96374; 96375; 96376; 99284; C9113; J1170; J2405; Q9967

== ENCOUNTER 2020-08-21 01:14 | Observation (INO) | payer OTHER, SELFPAY ==
[2019-10-18 15:19] VITALS: BMI 19.6
[2020-08-21] VITALS (10 sets, daily range): BP systolic 121–164; BP diastolic 56–104; PULSE 51–86; RESP 17–24; TEMP 36.1–36.8; O2SAT 93–100; BMI 28.3; BMI 23.2
--- NOTE | 2020-08-21 01:20 | ED_ITS ---
HPI - Abdominal Pain General Chief Complaint: Abdominal Pain Stated Complaint: ABD Pain Time Seen by Provider: 08/21/20 01:18 Source: patient and EMS Mode of arrival: Ambulatory Limitations: no limitations History of Present Illness HPI narrative: 85-year-old female nonsmoker presents by EMS for evaluation of severe abdominal pain worsening over the past day or 2 but present over the past few days. She has severe lower abdominal pain that is worse with motion and improves with rest. She has had multiple episodes of nausea and vomiting and states she has not had a bowel movement in over a week. She is no longer passing gas. She denies any dysuria, frequency or urgency. She denies any fever or chills. She denies any history of bowel obstruction. She has had multiple abdominal surgeries Related Data Home Medications Medication Instructions Recorded Confirmed gabapentin 300 mg capsule 300 mg PO HS #0 04/23/16 01/17/20 (Neurontin) pantoprazole 40 mg tablet,delayed 40 mg PO BID #0 04/23/16 01/17/20 release potassium chloride 10 mEq 10 meq PO BID #0 04/23/16 01/17/20 tablet,extended release (Klor-Con) cholecalciferol (vitamin D3) 125 5,000 unit PO DAILY 07/06/17 01/17/20 mcg (5,000 unit) tablet (Vitamin D3) clopidogrel 75 mg tablet 75 mg PO DAILY 07/06/17 01/17/20 doxycycline hyclate 100 mg capsule 100 mg PO BID 07/06/17 01/17/20 fluticasone propionate 50 2 spray INTRANASAL DAILY 07/06/17 01/17/20 mcg/actuation nasal spray,suspension (Flonase Allergy Relief) hydrocodone 10 mg-acetaminophen 1 tab PO TID 07/06/17 01/17/20 325 mg tablet ranitidine HCl 300 mg tablet 300 mg PO BEDTIME 07/06/17 01/17/20 (Zantac) simvastatin 20 mg tablet 20 mg PO QPM 07/06/17 01/17/20 amitriptyline 50 mg tablet 50 - 100 mg PO BEDTIME PRN 02/27/18 01/17/20 docusate sodium 100 mg tablet 100 mg PO DAILY 10/10/19 01/17/20 irbesartan 300 mg tablet 300 mg PO DAILY 10/10/19 01/17/20 polyethylene glycol 3350 17 17 gram PO DAILY 10/10/19 01/17/20 gram/dose oral powder (Miralax) Previous Rx's Medication Instructions Recorded oxycodone 5 mg tablet 5 mg PO QID PRN #30 tab 10/17/19 sulfamethoxazole 800 1 tab PO BID #14 tab 10/17/19 mg-trimethoprim 160 mg tablet (Bactrim DS) azithromycin 250 mg tablet See Rx Instructions PO .COMPLEX #6 01/18/20 tab meclizine 25 mg tablet 25 mg PO TID PRN #20 tab 07/19/20 magnesium citrate 300 ml PO DAILY PRN #296 ml 08/17/20 Allergies Allergy/AdvReac Type Severity Reaction Status Date / Time fluticasone Allergy Unknown Verified 08/17/20 15:05 procaine Allergy Unknown Verified 08/17/20 15:05 cefuroxime Allergy Verified 08/17/20 15:05 clarithromycin Allergy Verified 08/17/20 15:05 levofloxacin Allergy Verified 08/17/20 15:05 Penicillins Allergy Verified 08/17/20 15:05 salmeterol Allergy Verified 08/17/20 15:05 vancomycin Allergy Verified 08/17/20 15:05 fentanyl AdvReac Severe Confusion Verified 08/17/20 15:05 codeine AdvReac Unknown Headache Verified 08/17/20 15:05 Review of Systems Review of Systems Narrative: GENERAL: Denies chills, fatigue, malaise, fever, sweats. HEENT: Denies sinus pain, ear pain, sore throat, difficulty swallowing, dizziness. RESPIRATORY: Denies dyspnea, cough, wheezing, hemoptysis, sputum. CARDIOVASCULAR: Denies chest pain, palpitations, orthopnea, edema, GASTROINTESTINAL: see HPI : Denies dysuria, frequency, incontinence, hematuria, urinary retention. MUSCULOSKELETAL: denies weakness, joint pain, or bony pain SKIN: Denies rash, skin lesions, or other NEUROLOGIC: Denies weakness, headache, numbness, change in speech, confusion, seizures, incoordination. PSYCHIATRIC: No concerning psychosocial issues. 12 point review of systems is negative except for those stated above Patient History Medical History (Updated 08/21/20 @ 05:13 by Catalino Rizo DO) Diabetes History of left above knee amputation Hypertension Surgical History H/O ventral hernia repair Social History marital status: unknown household members: none Smoking Status: Never smoker alcohol intake: never substance use type: does not use Smoking Status: Never smoker alcohol intake frequency: 0-2 drinks per day Substance Use Type: does not use Exam Narrative Exam Narrative: GENERAL: [[age]] year old patient appears stated age. Well-developed patient, in obvious distress, complaining of pain, moaning, hol ding an emesis bag HEAD: Atraumatic. Normocephalic. EYES: Pupils equal round and reactive. Extraocular motions intact. No scleral icterus. No injection or drainage. ENT: Nose without bleeding, purulent drainage. Throat without erythema, tonsillar hypertrophy or exudate. Airway patent. NECK: Trachea midline. Non tender CARDIOVASCULAR: Regular rate and rhythm without murmurs, gallops, or rubs. RESPIRATORY: Clear to auscultation. Breath sounds equal bilaterally. No wheezes, rales, or rhonchi. GASTROINTESTINAL: Abdomen soft, severe tenderness in the central lower abdomen, decreased bowel sounds, localized peritonitis, no overlyin EXTREMITIES: No edema or joint tenderness. BACK: Nontender without deformity or crepitance. No flank tenderness. NEURO: AOx3. SKIN: No rash or erythema of visible areas Initial Vital Signs Initial Vital Signs: Vital Signs Temperature 98 F 08/21/20 01:17 Pulse Rate 84 08/21/20 01:17 Respiratory Rate 24 08/21/20 01:17 Blood Pressure 134/104 H 08/21/20 01:17 Pulse Oximetry 93 08/21/20 01:17 Course Orders Ordered: ED Orders 08/21/20 01:20 XR abdomen min 2V Stat 08/21/20 01:45 Complete Blood Count AUTO DIFF Stat Comprehensive Metabolic Panel Stat Lactate (Lactic Acid) Stat Lipase Stat 08/21/20 02:11 CT abdomen pelvis w con Stat 08/21/20 04:00 COVID19 - ADMIT (AVIATION MANAGER swab/PCR) Stat 08/21/20 04:50 Urine Microscopic Stat 08/21/20 04:59 Education, smoking cessation ONGOING 08/21/20 05:09 Consult to Dietitian, Adult Routine Urinalysis and Microscopic Urgent 08/21/20 05:10 Magnesium Routine 08/21/20 05:15 Basic Metabolic Panel DAILY Complete Blood Count AUTO DIFF DAILY 08/22/20 05:15 Basic Metabolic Panel DAILY Complete Blood Count AUTO DIFF DAILY 08/23/20 05:15 Basic Metabolic Panel DAILY Complete Blood Count AUTO DIFF DAILY Acetaminophen (Acetaminophen 325 Mg Tablet) 650 mg PO Q6HR PRN PRN Reason: Fever/Mild Pain (1-3) Docusate Sodium (Docusate 100 Mg Capsule) 100 mg PO BID ADA Sodium Chloride (Normal Saline 0.9%) 1,000 mls @ 100 mls/hr IV CONT ADA Magnesium Hydroxide (Magnesium Hydroxide 30 Ml Udc) 30 ml PO DAILY PRN PRN Reason: Constipation Naloxone HCl (Naloxone 0.4 Mg/Ml Vial) 0.2 mg IV Q2MIN PRN PRN Reason: Opiate Reversal Ondansetron HCl (Ondansetron 4 Mg/2 Ml Inj) 4 mg IV Q8HR PRN PRN Reason: Nausea And Vomiting Sennosides (Sennosides 8.6 Mg Tablet) 17.2 mg PO BEDTIME ADA Discontinued Medications Hydromorphone HCl (Hydromorphone 0.5 Mg Inj) 0.5 mg IV NOW ONE Stop: 08/21/20 01:21 Last Admin: 08/21/20 01:41 Dose: 0.5 mg Documented by: STACY Sodium Chloride (Normal Saline 0.9%) 1,000 mls @ 1,000 mls/hr IV BOLUS ONE Stop: 08/21/20 02:19 Last Infusion: 08/21/20 03:47 Dose: 0 mls/hr Documented by: Admin: 08/21/20 01:45 Dose: 1,000 mls/hr Documented by: STACY Ondansetron HCl (Ondansetron 4 Mg/2 Ml Inj) 4 mg IV NOW ONE Stop: 08/21/20 01:21 Last Admin: 08/21/20 01:45 Dose: 4 mg Documented by: STACY Consultations Consultation #1: Dr. Torre consulted with findings on CT. Recommends ABX (Flagyl), fluids, bowel prep and admission to hospitalist Vital Signs Vital signs: Vital Signs - 8 hr 08/21/20 01:17 Temperature 98 F Pulse Rate 84 Respiratory Rate 24 Blood Pressure 134/104 H Pulse Oximetry 93 MDM - Abdominal Pain Medical Records Medical records narrative: Patient is feeling improvement after the above-stated pain medications, the small bowel movement and the placement of urinary catheter with drainage of 650mL Lab Data Result diagrams: 08/21/20 01:45 08/21/20 01:45 Labs: Lab Results 08/21/20 08/21/20 08/21/20 Range/Units 01:45 01:45 01:45 WBC 9.7 (4.5-11.0) X10^3/uL RBC 5.34 H (4.0-5.2) X10^6/uL Hgb 11.3 L (12.0-16.0) g/dL Hct 37.1 (36-46) % MCV 69.6 L (80-100) fL MCH 21.3 L (26-34) PG MCHC 30.5 (30-36) % RDW 25.0 H (11.6-14.8) % Plt Count 248 (150-400) X10^3/uL Neut % (Auto) Not Reportable Lymph % (Auto) Not Reportable [place] % (Auto) Not Reportable Eos % (Auto) Not Reportable Baso % (Auto) Not Reportable Lymph # (Auto) Not Reportable [place] # (Auto) Not Reportable Baso # (Auto) Not Reportable Total Counted 100 Seg Neutrophils % 84.0 H (38-70) % Band Neutrophils % 9.0 H (3-7) % Lymphocytes % (Manual) 7.0 L (25-45) % Neutrophils # (Manual) 9021 H (4900-0881) /uL RBC Morphology See below Hypochromasia 1+ H Anisocytosis 2+ H Microcytosis 1+ H Sodium 135 L (137-145) mmol/L Potassium 4.1 (3.4-5.1) mmol/L Chloride 104 (98-107) mmol/L Carbon Dioxide 28 (22-32) mmol/L BUN 14 (7-17) mg/dL Creatinine 0.73 (0.52-1.04) mg/dL Estimated GFR > 60.0 (>60) mL/min BUN/Creatinine Ratio 19.2 (6-22) Glucose 127 H (80-110) mg/dL Lactate 2.4 H (0.7-2.1) mmol/L Calcium 9.2 (8.4-10.2) mg/dL Total Bilirubin 0.4 (0.2-1.3) mg/dL AST 53 H (14-36) IU/L ALT 27 (<35) IU/L Alkaline Phosphatase 263 H D (38-126) U/L Total Protein 6.2 L (6.3-8.2) g/dL Albumin 3.3 L (3.5-5.0) g/dL Globulin 2.9 (1.7-4.1) g/dL Albumin/Globulin Ratio 1.1 (1.0-2.8) Lipase 142 (23-300) U/L SARS-CoV-2 (PCR) (Negative) 08/21/20 08/21/20 Range/Units 04:00 04:22 WBC (4.5-11.0) X10^3/uL RBC (4.0-5.2) X10^6/uL Hgb (12.0-16.0) g/dL Hct (36-46) % MCV (80-100) fL MCH (26-34) PG MCHC (30-36) % RDW (11.6-14.8) % Plt Count (150-400) X10^3/uL Neut % (Auto) Lymph % (Auto) [place] % (Auto) Eos % (Auto) Baso % (Auto) Lymph # (Auto) [place] # (Auto) Baso # (Auto) Total Counted Seg Neutrophils % (38-70) % Band Neutrophils % (3-7) % Lymphocytes % (Manual) (25-45) % Neutrophils # (Manual) (1269-2869) /uL RBC Morphology Hypochromasia Anisocytosis Microcytosis Sodium (137-145) mmol/L Potassium (3.4-5.1) mmol/L Chloride (98-107) mmol/L Carbon Dioxide (22-32) mmol/L BUN (7-17) mg/dL Creatinine (0.52-1.04) mg/dL Estimated GFR (>60) mL/min BUN/Creatinine Ratio (6-22) Glucose (80-110) mg/dL Lactate 2.1 (0.7-2.1) mmol/L Calcium (8.4-10.2) mg/dL Total Bilirubin (0.2-1.3) mg/dL AST (14-36) IU/L ALT (<35) IU/L Alkaline Phosphatase (38-126) U/L Total Protein (6.3-8.2) g/dL Albumin (3.5-5.0) g/dL Globulin (1.7-4.1) g/dL Albumin/Globulin Ratio (1.0-2.8) Lipase (23-300) U/L SARS-CoV-2 (PCR) Negative (Negative) Point of care testing: Urine Dip Bedside Urine Glucose Negative Bedside Urine Bilirubin - Negative Bedside Urine Ketone - Negative Urine Specific [place] 1.010 Bedside Urine Occult Blood +/- Bedside Urine pH 8.0 Bedside Urine Protein - Negative Bedside Urine Urobilinogen - Negative Bedside Urine Nitrite + Positive Bedside Urine Leukocytes ++ [address] scan - abdomen/pelvis: Radiologist's Impression: moderate stool in the descending and sigmoid colon with mild wall thickening and adjacent inflammation with fluid-filled ascending and proximal transverse colon findings consistent with stercoral colitis Discharge Plan Departure Patient Disposition: Admitted as Observation Clinical Impression: Stercoral colitis, Acute urinary retention Admit Date/Time: 08/21/20 05:10 Admit Provider: Britni Patel
--- NOTE | 2020-08-21 01:20 | DI.RAD.S_ITS ---
PROCEDURE: XR ABDOMEN MIN 2V INDICATIONS: severe abdominal pain TECHNIQUE: 2 views of the abdomen were acquired. COMPARISON: None. FINDINGS: Surgical changes and devices: Cholecystectomy clips. Bowel: No pneumoperitoneum. The bowel gas pattern is nonspecific. Moderate to large sized hiatal hernia is noted. Soft tissues: No masses; visualized solid organ contours appear normal in size. No suspicious abdominal calcifications. Bones: No suspicious bony abnormalities. IMPRESSION: Nonspecific bowel gas pattern without definite evidence of obstruction. If patient's symptoms persist or worsen consider CT scan of the abdomen/pelvis for further evaluation. Dictated by: Celeste Whalen MD, PhD on 08/21/2020 at 8:36 Approved by: Celeste Whalen MD, PhD on 08/21/2020 at 8:37
[2020-08-21] MEDS: HYDROMORPHONE 0.5 MG INJ IV ×2 (01:41→06:59)
[2020-08-21] MEDS: ONDANSETRON 4 MG/2 ML INJ IV (01:45)
[2020-08-21] MEDS: SODIUM CHLORIDE 0.9% 1,000 ML 1000 ML IV (01:45)
[2020-08-21 02:08] LABS: Alanine Aminotransferase 27 IU/L (<35); Albumin 3.3 g/dL (3.5-5.0); Albumin Globulin Ratio 1.1 (1.0-2.8); Alkaline Phosphatase 263 U/L (38-126); Aspartate Aminotransferase 53 IU/L (14-36); BUN Creatinine Ratio 19.2 (6-22); Bilirubin Total 0.4 mg/dL (0.2-1.3); Blood Urea Nitrogen 14 mg/dL (7-17); Calcium 9.2 mg/dL (8.4-10.2); Carbon Dioxide 28 mmol/L (22-32); Chloride 104 mmol/L (98-107); Estimated Glomerular Filt Rate > 60.0 mL/min (>60); Globulin 2.9 g/dL (1.7-4.1); Glucose 127 mg/dL (80-110); HEMOLYSIS < 15 (0-50); Hematocrit 37.1 % (36-46); Hemoglobin 11.3 g/dL (12.0-16.0); Lipase 142 U/L (23-300); Mean Corpuscular HGB Conc 30.5 % (30-36); Mean Corpuscular Hemoglobin 21.3 PG (26-34); Mean Corpuscular Volume 69.6 fL (80-100); Platelet Count 248 X10^3/uL (150-400); Potassium 4.1 mmol/L (3.4-5.1); Red Blood Cell Count 5.34 X10^6/uL (4.0-5.2); Sodium 135 mmol/L (137-145); Total Protein 6.2 g/dL (6.3-8.2); White Blood Cell Count 9.7 X10^3/uL (4.5-11.0)
[2020-08-21 02:09] LABS: Lactate (Lactic Acid) 2.4 mmol/L (0.7-2.1)
--- NOTE | 2020-08-21 02:11 | DI.CT.S_ITS ---
PROCEDURE: CT ABDOMEN PELVIS W CON INDICATIONS: severe abdominal pain TECHNIQUE: After the administration of intravenous contrast, axial sections acquired from the lung bases to the pubic symphysis. Coronal and sagittal reformats were performed. For radiation dose reduction, the following was used: automated exposure control, adjustment of mA and/or kV according to patient size. COMPARISON: [facility], CT, CT ABDOMEN PELVIS W CON, 06/07/2019, 19:04. [facility], CT, CT ANGIO CHEST PE PROTOCOL, 02/27/2018, 13:06. [facility], CT, CT ABDOMEN PELVIS W CON, 02/27/2018, 13:06. [facility], CT, CT ABDOMEN PELVIS W CON, 08/17/2020, 15:06. FINDINGS: Image quality: Excellent. Lung bases: Unremarkable. Large hiatal hernia. Heart: No significant findings. ABDOMEN: Liver: There is intrahepatic biliary dilation. Gallbladder: Surgically absent Biliary ducts: Dilated. The common bile duct measures up to 17 mm. There is no significant change compared to the previous exams. Pancreas: Unremarkable. Spleen: Unremarkable. Adrenal Glands: Unremarkable. Kidneys and Ureters: Unremarkable. Stomach and Bowel: There is large amount of stool in colon. Mild colonic wall thickening in the sigmoid colon. There is fluid in the cecum, ascending colon and hepatic flexure with an air-fluid level. Small bowel loops are normal in caliber. Peritoneum: No abnormal intraperitoneal fluid. No free air. Ventral Wall: No hernias. Abdominal Nodes: No retroperitoneal or mesenteric adenopathy by size criteria. Vessels: Aorta and inferior vena cava are normal in size. PELVIS: Pelvic Organs: Uterus is absent consistent with hysterectomy. Ovaries are not visualized Bladder: Bladder wall is mildly thickened. Jenera dependent hyperdensities in bladder lumen are compatible with small bladder stones. Pelvic Nodes: No enlarged lymph nodes. Miscellaneous: No hernias are seen. There is a surgical scar at the umbilicus. Bones: Scoliosis. There is grade 1 anterolisthesis of L4 on L5. Severe degenerative changes in lumbar spine. IMPRESSION: 1. Mild focal thickening of the distal sigmoid colon. There is a moderate amount of stool in distal colon. Proximal colon including cecum, ascending colon and hepatic flexure are mildly distended and filled with fluid with an air-fluid level. The CT finding suggest mild colitis and equivocal for mild colonic obstruction. 2. A large hiatal hernia. 3. Bladder wall is mildly thickened there are small bladder stones within gravity independent bladder lumen. There is a bladder diverticulum on the right. Recommend correlation for urinary retention or infection. 4. Intrahepatic and extrahepatic biliary dilation, which 5. Scoliosis and degenerative changes in lumbar spine. No significant discrepancy with the manager shift radiology preliminary report. Dictated by: May Greene M.D. on 08/21/2020 at 9:06 Approved by: May Greene M.D. on 08/21/2020 at 10:12
[2020-08-21 02:13] LABS: Add Manual Diff / Slide Review YES
[2020-08-21 02:45] LABS: Neutrophils Absolute Manual 9021 /uL (3000-5900); Total Cells Counted 100
[2020-08-21 02:47] LABS: Anisocytosis 2+; Hypochromasia 1+; Microcytosis 1+
[2020-08-21 03:55] LABS: Reflexed Lactate in 2 Hours Y
[2020-08-21 04:43] LABS: Lactate 2HR (Lactic Acid Rflx) 2.1 mmol/L (0.7-2.1)
[2020-08-21 05:11] LABS: COVID19 - ADMIT (NP swab/PCR) Negative (Negative)
--- NOTE | 2020-08-21 05:14 | P.HP_ITS ---
History of Present Illness History of Present Illness Date Patient Seen: 08/21/20 Time Patient Seen: 05:14 Chief complaint: ABD Pain Narrative: Patient is an 85-year-old female Rowan Guerra who presented to the ED with a chief complaint of lower abdominal pain and worsening constipation and no passing of stool or gas over the past 2 days, but has been struggling with constipation for several weeks. Patient was seen in the ED on 08/17/2020 for this issue and was treated and released, but was unable to pass stool. She complained of severe lower abdominal pain that is worse with motion and improves with rest. She has had multiple episodes of nausea and vomiting and states she has not had a bowel movement in over a week. She is no longer passing gas. She denies any dysuria, frequency or urgency. She denies any fever or chills. She denies any history of bowel obstruction. Patient has had multiple abdominal surgeries over the years with a past history of gastric polyps, Hx GI bleed, gastropathy, cholecystectomy, and recurrent incisional ventral hernia repair- the last surgery being completed by Dr. Woodard 10/2019. Patient's severe abdominal pain in the ED which has improved with medication and a passage of small amount of bowel. in ED did consult with surgery, there was no obstruction or other surgical intervention needs, recommended patient be admitted to help resolve constipation and treat with Flagyl. 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 Upon admit patient's vitals demonstrated hypertension with a blood pressure of 134/104, HR 84, RR 24, O2 saturation 93% on 3 L. patient's WBCs were within no rmal limits although neutrophils 9021, HGB 11.3, MCV 69.6, patient's AST was slightly elevated at 53, and alk-phos 263, also an elevated lactate at 2.4, and a total protein 6.2 a decreased albumin at 3.3. Patient's abdomen/pelvis CT demonstrated moderate stool in the descending and sigmoid colon with mild wall thickening and adjacent inflammation with fluid-filled ascending and proximal transverse colon findings consistent with stercoral colitis. Patient was also found to be retaining 650 cc post residual, and a Jones was placed. Patient has continued lower abdominal pain that had been improving in the ED from pain medication but now is worsening and is an 8/10. The patient notes that she had some 4 small BMs in the ED and vomited twice. Patient also states that she has been having dysuria urgency and frequency x2 weeks and her PCP did not treat. Patient states that nausea and vomiting have resolved. Patient denies chest pain, shortness of breath, diarrhea, chills, fever, body aches. Patient does state that she has had a recent bout of bronchitis and continues to have a mild nonproductive cough. Patient to be admitted for abdominal pain, constipation, urinary retention, and stercoral colitis. 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 Diabetes Diabetic gastropathy GERD (gastroesophageal reflux disease) Hearing loss Hearing loss History of gastric polyp History of left above knee amputation History of lower gastrointestinal bleeding History of recurrent TIAs Hyperlipidemia associated with type 2 diabetes mellitus Hypertension Iron deficiency anemia Morgellons disease Non-insulin dependent type 2 diabetes mellitus Osteoarthritis Surgical History H/O ventral hernia repair History of ventral hernia repair Family & Social History Family History Mother Alzheimers disease Father Aneurysm Brother AL (myocardial infarction) Sister Parkinsons disease Social History: household members none Safety & Behavioral: Feels Safe in Current Yes Environment Been Physically Hurt or No Threatened By a Person Tobacco & Substance use: Smoking Status Never smoker alcohol intake never alcohol intake frequency 0-2 drinks per day Substance Use Type does not use Meds Home Medications and Allergies Home Medications Medication Instructions Recorded Confirmed Type gabapentin 300 mg capsule 300 mg PO HS #0 04/23/16 01/17/20 History (Neurontin) pantoprazole 40 mg tablet,delayed 40 mg PO BID #0 04/23/16 01/17/20 History release potassium chloride 10 mEq 10 meq PO BID #0 04/23/16 01/17/20 History tablet,extended release (Klor-Con) cholecalciferol (vitamin D3) 125 5,000 unit PO DAILY 07/06/17 01/17/20 History mcg (5,000 unit) tablet (Vitamin D3) clopidogrel 75 mg tablet 75 mg PO DAILY 07/06/17 01/17/20 History doxycycline hyclate 100 mg capsule 100 mg PO BID 07/06/17 01/17/20 History fluticasone propionate 50 2 spray INTRANASAL DAILY 07/06/17 01/17/20 History mcg/actuation nasal spray,suspension (Flonase Allergy Relief) hydrocodone 10 mg-acetaminophen 1 tab PO TID 07/06/17 01/17/20 History 325 mg tablet ranitidine HCl 300 mg tablet 300 mg PO BEDTIME 07/06/17 01/17/20 History (Zantac) simvastatin 20 mg tablet 20 mg PO QPM 07/06/17 01/17/20 History amitriptyline 50 mg tablet 50 - 100 mg PO BEDTIME PRN 02/27/18 01/17/20 History docusate sodium 100 mg tablet 100 mg PO DAILY 10/10/19 01/17/20 History irbesartan 300 mg tablet 300 mg PO DAILY 10/10/19 01/17/20 History polyethylene glycol 3350 17 17 gram PO DAILY 10/10/19 01/17/20 History gram/dose oral powder (Miralax) oxycodone 5 mg tablet 5 mg PO QID PRN #30 tab 10/17/19 01/17/20 Rx sulfamethoxazole 800 1 tab PO BID #14 tab 10/17/19 01/17/20 Rx mg-trimethoprim 160 mg tablet (Bactrim DS) azithromycin 250 mg tablet See Rx Instructions PO .COMPLEX #6 01/18/20 01/18/20 Rx tab meclizine 25 mg tablet 25 mg PO TID PRN #20 tab 07/19/20 Rx magnesium citrate 300 ml PO DAILY PRN #296 ml 08/17/20 Rx Allergies Allergy/AdvReac Type Severity Reaction Status Date / Time fluticasone Allergy Unknown Verified 08/17/20 15:05 procaine Allergy Unknown Verified 08/17/20 15:05 cefuroxime Allergy Verified 08/17/20 15:05 clarithromycin Allergy Verified 08/17/20 15:05 levofloxacin Allergy Verified 08/17/20 15:05 Penicillins Allergy Verified 08/17/20 15:05 salmeterol Allergy Verified 08/17/20 15:05 vancomycin Allergy Verified 08/17/20 15:05 fentanyl AdvReac Severe Confusion Verified 08/17/20 15:05 codeine AdvReac Unknown Headache Verified 08/17/20 15:05 Review of Systems Review of Systems Narrative: A 10 point review of systems is negative except for as noted in HPI. Exam Vital Signs (past 8 hours): - 08/21/20 01:17 Temperature 98 F Pulse Rate 84 Respiratory Rate 24 Blood Pressure 134/104 H Pulse Oximetry 93 Oxygen Delivery Method Nasal Cannula Oxygen Flow Rate 3 Narrative Exam Narrative: General: Patient is a well-developed, moderately-nourished female in increasing abd discomfort, though not in acute distress at this time. HEENT: Normocephalic, atraumatic, extraocular muscles intact, oral pharynx is clear and mucous membranes are dry. Poor dentition with multiple missing teeth. Neck is supple and symmetric, trachea is midline, no adenopathy, no thyroid enlargement, nontender, no masses palpated. Negative for JVD Chest: Normal AP diameter and contour without kyphoscoliosis, no nasal flaring, retractions, or tachypneic labored Lungs: Auscultation of all lung cherry are coarse, decreased occasional expiratory wheezing throughout but equal. Cardio: S1 & S2 with regular rate and rhythm with systolic murmur,without rubs, or gallops, no carotid bruit, no cardiac pulsations present. Abdomen: Soft tender to lower left abd quad to umbilical area, distended. Bowel sounds are Hyperactive present in all 4 quadrants with guarding, negative rebound, no CVA tenderness. Musculoskeletal: Muscle strength and tone are equal within normal limits, no deformity, crepitus, effusions, cyanosis, clubbing or edema present. Full range of motion intact radial and pedal pulses are normal. Amputation of left lower extremity Skin: Warm dry and intact without rashes, ulcerations or petechiae. Neuro: Alert and orientated x3, strength is +5/5 in all extremities, sensation to touch intact, no gross deficits noted of cranial nerves. Psych: Patient has a well-kept appearance, appropriate affect, mental status attitude thought context and judgment are appropriate for age. Objective Labs Result Diagrams: 08/21/20 01:45 08/21/20 01:45 Labs: Laboratory Results - last 24 hr 08/21/20 08/21/20 08/21/20 01:45 01:45 01:45 WBC 9.7 RBC 5.34 H Hgb 11.3 L Hct 37.1 MCV 69.6 L MCH 21.3 L MCHC 30.5 RDW 25.0 H Plt Count 248 Neut % (Auto) Not Reportable Lymph % (Auto) Not Reportable [place] % (Auto) Not Reportable Eos % (Auto) Not Reportable Baso % (Auto) Not Reportable Lymph # (Auto) Not Reportable [place] # (Auto) Not Reportable Baso # (Auto) Not Reportable Total Counted 100 Seg Neutrophils % 84.0 H Band Neutrophils % 9.0 H Lymphocytes % (Manual) 7.0 L Neutrophils # (Manual) 9021 H RBC Morphology See below Hypochromasia 1+ H Anisocytosis 2+ H Microcytosis 1+ H Sodium 135 L Potassium 4.1 Chloride 104 Carbon Dioxide 28 BUN 14 Creatinine 0.73 Estimated GFR > 60.0 BUN/Creatinine Ratio 19.2 Glucose 127 H Lactate 2.4 H Calcium 9.2 Total Bilirubin 0.4 AST 53 H ALT 27 Alkaline Phosphatase 263 H D Total Protein 6.2 L Albumin 3.3 L Globulin 2.9 Albumin/Globulin Ratio 1.1 Lipase 142 SARS-CoV-2 (PCR) 08/21/20 08/21/20 04:00 04:22 WBC RBC Hgb Hct MCV MCH MCHC RDW Plt Count Neut % (Auto) Lymph % (Auto) [place] % (Auto) Eos % (Auto) Baso % (Auto) Lymph # (Auto) [place] # (Auto) Baso # (Auto) Total Counted Seg Neutrophils % Band Neutrophils % Lymphocytes % (Manual) Neutrophils # (Manual) RBC Morphology Hypochromasia Anisocytosis Microcytosis Sodium Potassium Chloride Carbon Dioxide BUN Creatinine Estimated GFR BUN/Creatinine Ratio Glucose Lactate 2.1 Calcium Total Bilirubin AST ALT Alkaline Phosphatase Total Protein Albumin Globulin Albumin/Globulin Ratio Lipase SARS-CoV-2 (PCR) Negative Assessment & Plan Assessment & Plan narrative: 1. Severe acute abdominal pain (in the setting of chronic abd pain) resulting from constipation and stercoral colitis, with a recent history of anemia, acute on chronic, present on admission - Admit Vitals:134/104, HR 84, RR 24, O2 saturation 93% on 3 L. patient's WBCs were within normal limits although her neutrophils were elevated at 9021, HGB 11.3, MCV 69.6, patient was was seen in the ED 07/28 for anemia where they transfused 1 unit. AST was slightly elevated at 53, and alk-phos 263, also an elevated lactate at 2.4, total protein 6.2, decreased albumin at 3.3. Patient's abdomen/pelvis CT demonstrated moderate stool in the descending and sigmoid colon with mild wall thickening and adjacent inflammation with fluid- filled ascending and proximal transverse colon findings consistent with stercoral colitis. -surgery consult in ED determined no surgical interventions were required at this time. But for any clinical changes surgery to be consulted. -patient placed on a full clear liquid diet -senna ordered, milk of Mag, docusate sodium -NS at 100 cc/hour -hemoccult as needed -monitor electrolytes, maintain potassium greater than 4 and magnesium greater than 2, Antiemetics, pain meds as needed, ambulate as tolerated, strict I&O QShift, V/SQ4 -Flagyl 500 mg b.i.d. -patient has extensive allergy list 2. Acute urinary retention, as evidence by post residual urine 650 cc, acute, present on admission -Jones placed in ED -urine culture pending 3. Atrial fibrillation on long-term anticoagulant Plavix, in the setting of essential hypertension, chronic, present on admission -continue patient's Plavix, Irbesartan, amlodipine, metoprolol -patient admitted on tele monitoring 4. Hyperlipidemia as a result of [id number] type 2 diabetes with a history of recurrent TIAs, and resulting gastropathy, acute on chronic, present on admission -continue patient's simvastatin, gabapentin, amitriptyline 5. GERD, in the setting of history of gastric polyps and GI GI bleed, with resulting recurrent incisional ventral hernia, acute on chronic, present on admission -continue pantoprazole Code status: Full code Surrogate decision maker: Blaise Mathis son and Rommel Daughter COVID PCR: Negative DVT/VTE prophylaxis: Contraindicated patient on Plavix, SCDs only Expected length of stay: Less than 2 midnights Scores GCS Luanne coma scale eye opening: Spontaneous Luanne coma scale verbal response: Orientated Luanne coma scale motor response: Obey commands [place] coma scale total score: 15 SOFA PaO2/FIO2: < 400 mmHg Platelets: >= 150 Bilirubin: < 1.2 mg/dL Hypotension: MAP >= 70 mmHg Luanne Coma Scale: 15 Renal: < 1.2 mg/dL SOFA Score: 1 Wells' Criteria for PE Clinical signs and symptoms of DVT: No PE is #1 Dx or equally likely: No Heart rate > 100: No Immobilization at least 3 days or surg in previous 4 weeks: No History of PE or DVT: No Hemoptysis: No Malignancy w/Treatment within 6 months or palliative: No Wells' PE Score total: 0 Quality MIPS - Admit I confirm the patient?s Advance Care Plan is present, Code status is documented, Surrogate decision maker is in patient?s record [If Yes, STOP here]: Yes
[2020-08-21 05:29] LABS: Bacteria Urine Many (>30); Squamous Epithelial Cell Urine 0-1 /HPF (0-5/HPF); Triple Phosphate Crystal Urine Few; WBC Urine 10-30/HPF (0-5/HPF)
[2020-08-21 05:30] LABS: Culture Indicated Urine Specimen Cultured; RBC Urine 0-1/HPF (0-5/HPF)
[2020-08-21] MEDS: SODIUM CHLORIDE 0.9% 1,000 ML 100 ML IV (05:59)
[2020-08-21] MEDS: MAGNESIUM CITRATE 300 ML SOLUTION PO (08:20)
[2020-08-21] MEDS: DOCUSATE 100 MG CAPSULE PO ×2 (08:20→20:33)
[2020-08-21] MEDS: polyethylene glycoL 3350 17 GM POWD.PACK PO (08:20)
[2020-08-21] MEDS: metroNIDAZOLE 500 MG TABLET PO ×2 (08:20→20:33)
--- NOTE | 2020-08-21 11:05 | PC.NURSE ---
Addendum entered by Britni Ge R.N. 08/21/20 15:25: PIV removed by patient during transfer. Pt is c/o gas pains, stooling significantly, helping with this pain. Per Dr Angel, no further IV at this time. Tele dcd. Try and avoid narcotics d/t constipation. Original Note: Am shift Pt is A/o x3, forgetful and slightly impulsive. BA active. Cold fingers and poor circulation per Pt, using ear site for Spo2. 94% RA. Occasional nonproductive cough noted, recovering from bronchitis, per Pt. VSS. 1PA to BSC, Jones patent, dee colored urine. Pt able to have BM after bowel meds this am. Comfortable at present. PIV infusing. Pt placed on precautions for MRSA + Nares. Call light in reach and able to make needs known.
--- NOTE | 2020-08-21 12:38 | DIET.PN ---
Dietary Progress Note Assessment: 85y F admitted for abdominal pain referred to nutrition for chronic constipation. HT: 165cm WT: 63.3kg BMI:23.2 Labs: WBC 9.7, alk phos 263 H, MRSA positive Pt has long hx of chronic constipation and states her father had same. Pt does not undergo regular bowel regimen and is able to have 1 BM daily. Pt has some prolapse of anus. Pt missed a BM about a week ago and thought it would self-resolve, but when she went 6d, took Miralax and then bottle of mag citrate which started severe abd pain and no BM. Pts granddaughter sent pt to ED where pt had 4 small BMs and dx c stercoral colitis. Usual Day: B: oats c toast or palestinian toast c egg L: skips D: salmon or chicken c potato and veg Pt drinks almost a gallon weak iced tea daily Pt does not tolerate dried beans and keeps a garden each summer. Nutrition Diagnosis: stercoral colitis r/t chronic constipation aeb pt admitted to hospital after 7d no BM, pt has hx constipation c prolapse anus, pt drinks weak iced tea but no water, pt not on bowel regimen. Interventions: 1. Discussed chronic constipation in context of inadequate fluid intake and inadequate soluble fiber intake. Encouraged pt to drink plain water in addition to tea daily. Educated pt on sources of soluble fiber. Pt willing to increase intake oats, berries, bananas. 2. Discussed bowel regimen choices including metamucil, miralax, magnesium citrate, pros and cons of each. Diet Order: general
[2020-08-21 13:12] LABS: Appearance Urine UA CLEAR; Bilirubin Urine UA NEGATIVE (NEGATIVE); Color Urine UA YELLOW; Glucose Urine UA NEGATIVE (Negative); Ketones Urine UA NEGATIVE (NEGATIVE); Leukocyte Esterase Urine UA 2+ (NEGATIVE); Nitrite Urine UA POSITIVE (Negative); Occult Blood Urine UA TRACE-INTACT (Negative); Protein Urine UA TRACE (Negative); Urobilinogen Urine UA 0.2 E.U./dL (0.2)
[2020-08-21 13:25] LABS: Amorphous Sediment Urine 1+; Bacteria Urine Many (>30); RBC Urine 0-1/HPF (0-5/HPF); Squamous Epithelial Cell Urine 0-1 /HPF (0-5/HPF); WBC Urine 10-30/HPF (0-5/HPF)
[2020-08-21 13:26] LABS: Culture Indicated Urine Specimen Cultured
--- NOTE | 2020-08-21 15:33 | CM.IDA ---
Initial DCP Assessment Note Pt is an 85 yo female, resident of [facility], arrives w/increasing abd pain and constipation, no SBO found, no need for surgical intervention at this time. PMH includes [place] BAILEY, w/c bound PCP: Rochelle Clements Payer: Henna KHAN Reviewed chart, patient discussed in multidisciplinary rounds this morning. Patient expected to DC home w/no needs from this [employer]. Attempted assessment this afternoon and patient on the BSC. According to SANDRA Ryder, patient now able to have a BM and will likely return home w/family this evening. no needs from DC planning team indicated. Patient lives w/family; education provided from service desk associate and RN re: use of home narcotics and need for bowel regimen w/suggestion to increase soluble fiber in diet in the setting of chronic constipation. Unable to return to bedside today but will plan to reassess needs in the AM if patient remains admitted. Deena Jon, [employer]
--- NOTE | 2020-08-21 17:30 | PC.NURSE ---
In person report given to SANDRA Norwood.
[2020-08-21] MEDS: ACETAMINOPHEN 325 MG TABLET 650 MG PO (18:23)
[2020-08-21] MEDS: SENNOSIDES 8.6 MG TABLET 17.2 MG PO (20:33)
[2020-08-21] MEDS: TRAMADOL 50 MG TABLET PO (20:36)
--- NOTE | 2020-08-21 22:41 | PC.NURSE ---
A&Ox3 but has some confusion about order of events and needs reminders for things. VSS except for elevated BP, 143/ 65. Jones catheter draining dee urine. No IV access. Patient reports abdominal pain 4-5/10. Given PRN tylenol and tramadol, which provided relief to 2/10 pain. Abdomen soft and non tender. Patient ate 25% of dinner. She had one small bowl movement. 1 person transfer to bedside commode. Call light within reach, bed low.
[2020-08-22] VITALS: O2SAT 94
[2020-08-22] MEDS: TRAMADOL 50 MG TABLET PO ×2 (03:51→09:31)
[2020-08-22 04:00] VITALS: BP 135/71; PULSE 72; RESP 18; TEMP 36.2; O2SAT 92
[2020-08-22 08:00] VITALS: BP 120/63; PULSE 98; RESP 16; TEMP 36.4; O2SAT 96
--- NOTE | 2020-08-22 08:53 | PC.NURSE ---
Addendum entered by Nilsa Flores R.N. 08/22/20 14:56: Patient voided, PVR 59. Patient given discharge instructions regarding f/u and prescriptions. Patient verbalized understanding. Patient discharged via wheelchair with aide assist. Addendum entered by Nilsa Flores R.N. 08/22/20 10:06: Removed murphy catheter for D/C patient tolerated. Original Note: Patient resting in bed. Denies N/V, c/o abdominal pain in both RLQ and LLQ, dull, aching. Pain with palpation. BT hypoative x 4. Murphy is patent and draining. Patients reports intermittent loose stools. Pulses equal, VSS, murmur noted. Patient lungs are CTA. Patient denies SOB or increased WOB with activity. Call light in reach. Patient denies further needs at this time.
--- NOTE | 2020-08-22 09:00 | PM.DS.1 ---
History of Present Illness History of Present Illness Date Patient Seen: 08/22/20 Time Patient Seen: 09:01 Chief complaint: ABD Pain Narrative: As per Britni Patel, Patient is an 85-year-old female Rowan Guerra who presented to the ED with a chief complaint of lower abdominal pain and worsening constipation and no passing of stool or gas over the past 2 days, but has been struggling with constipation for several weeks. Patient was seen in the ED on 08/17/2020 for this issue and was treated and released, but was unable to pass stool. She complained of severe lower abdominal pain that is worse with motion and improves with rest. She has had multiple episodes of nausea and vomiting and states she has not had a bowel movement in over a week. She is no longer passing gas. She denies any dysuria, frequency or urgency. She denies any fever or chills. She denies any history of bowel obstruction. Patient has had multiple abdominal surgeries over the years with a past history of gastric polyps, Hx GI bleed, gastropathy, cholecystectomy, and recurrent incisional ventral hernia repair- the last surgery being completed by Dr. Woodard 10/2019. Patient's severe abdominal pain in the ED which has improved with medication and a passage of small amount of bowel. in ED did consult with surgery, there was no obstruction or other surgical intervention needs, recommended patient be admitted to help resolve constipation and treat with Flagyl. 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 Upon admit patient's vitals demonstrated hypertension with a blood pressure of 134/104, HR 84, RR 24, O2 saturation 93% on 3 L. patient's WBCs were within normal limits although neutrophils 9021, HGB 11.3, MCV 69.6, patient's AST was slightly elevated at 53, and alk-phos 263, also an elevated lactate at 2.4, and a total protein 6.2 a decreased albumin at 3.3. Patient's abdomen/pelvis CT demonstrated moderate stool in the descending and sigmoid colon with mild wall thickening and adjacent inflammation with fluid-filled ascending and proximal transverse colon findings consistent with stercoral colitis. Patient was also found to be retaining 650 cc post residual, and a Jones was placed. Patient has continued lower abdominal pain that had been improving in the ED from pain medication but now is worsening and is an 8/10. The patient notes that she had some 4 small BMs in the ED and vomited twice. Patient also states that she has been having dysuria urgency and frequency x2 weeks and her PCP did not treat. Patient states that nausea and vomiting have resolved. Patient denies chest pain, shortness of breath, diarrhea, chills, fever, body aches. Patient does state that she has had a recent bout of bronchitis and continues to have a mild nonproductive cough. Patient to be admitted for abdominal pain, constipation, urinary retention, and stercoral colitis. Discharge Providers Provider Date of admission: 08/21/20 05:10 Discharge Date: 08/22/20 Primary care physician: Rochelle Clements MD Consults: 08/21/20 05:09 Consult to Dietitian, Adult Routine Comment: Reason For Exam: Chronic constipation Discharge provider: Edson Angel DO Summary Hospital Course Discharge Diagnosis: 1. Severe acute abdominal pain (in the setting of chronic abd pain) From constipation and stercoral colitis, present on admission, improved 2. Acute urinary retention, acute cystitis 3. Atrial fibrillation on long-term anticoagulant Plavix, in the setting of essential hypertension, chronic, present on admission 4. Hyperlipidemia as a result of [id number] type 2 diabetes with a history of recurrent TIAs, and resulting gastropathy, acute on chronic, present on admission 5. GERD, in the setting of history of gastric polyps and GI GI bleed, with resulting recurrent incisional ventral hernia, acute on chronic, present on admission Hospital Course: This is an 85-year-old female with history of multiple past surgeries who was admitted with severe constipation and stercoral colitis. She improved with initial laxative therapies including magnesium citrate, and she continued to have bowel movements over the course of her admission, becoming somewhat watery on the day of discharge. She had no nausea, vomiting, and her abdominal pain had significantly improved. She notably has chronic abdominal pain in the setting of her multiple prior surgeries. She was continued on antibiotics empirically for possible colonic infection however these are discontinued on the time of discharge. Likely, as result of her severe constipation, the patient was also found to have an acute cystitis and acute urinary retention. Jones catheter was placed in the ER however this was removed with when she was having bowel movements and she was voiding without difficulty. because of her multiple allergies the patient was discharged on Macrobid, urine cultures are currently growing Proteus, although sensitivities are pending. I recommend that she follow-up with her primary care provider next week if possible. Given her rare watery stools on the day of discharge her laxative therapy was recommended to be held for the following day, at which point she can resume if her bowel movements normalize. Code status: Full code Surrogate decision maker: Blaise Mathis son and Rommel Daughter Exam Vital Signs (past 8 hours): - 08/22/20 04:00 Temperature 97.1 F L Pulse Rate 72 Respiratory Rate 18 Blood Pressure 135/71 Pulse Oximetry 92 Oxygen Delivery Method Room Air Oxygen Flow Rate 0 Narrative Exam Narrative: General: Patient is a well-developed, moderately-nourished female in no acute distress HEENT: Normocephalic, atraumatic, extraocular muscles intact, oral pharynx is clear and mucous membranes are moist. Poor dentition with multiple missing teeth. Neck is supple and symmetric, trachea is midline. Chest: Normal AP diameter and contour without kyphoscoliosis, no nasal flaring, retractions, or tachypneic labored Lungs: clear to auscultation bilaterally with no wheezes, rhonchi, or rales Cardio: S1 & S2 with regular rate and rhythm with systolic murmur,without rubs, or gallops Abdomen: soft, minimally tender to left lower quadrant, nondistended Musculoskeletal: Muscle strength and tone are equal within normal limits, no deformity, crepitus, effusions, cyanosis, clubbing or edema present. Full range of motion intact radial and pedal pulses are normal. Amputation of left lower extremity Skin: Warm dry and intact without rashes, ulcerations or petechiae. Neuro: Alert and orientated x3, strength is +5/5 in all extremities, sensation to touch intact, no gross deficits noted of cranial nerves. Psych: Patient has a well-kept appearance, appropriate affect, mental status attitude thought context and judgment are appropriate for age. Objective Labs Result Diagrams: 08/21/20 01:45 08/21/20 01:45 Labs: Laboratory Results - last 24 hr 08/21/20 04:45 Urine Color Yellow Urine Appearance Clear Urine pH 8.0 Ur Specific [place] 1.010 Urine Protein Trace H Urine Glucose (UA) Negative Urine Ketones Negative Urine Occult Blood Trace-intact Urine Nitrate Positive H Urine Bilirubin Negative Urine Urobilinogen 0.2 Ur Leukocyte Esterase 2+ H Urine RBC 0-1/hpf Urine WBC 10-30/hpf H Ur Squamous Epith Cells 0-1 /hpf Amorphous Sediment 1+ Urine Bacteria Many (>30) H Ur Culture Indicated? 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 Diabetes Diabetic gastropathy GERD (gastroesophageal reflux disease) Hearing loss Hearing loss History of gastric polyp History of left above knee amputation History of lower gastrointestinal bleeding History of recurrent TIAs Hyperlipidemia associated with type 2 diabetes mellitus Hypertension Iron deficiency anemia Morgellons disease Non-insulin dependent type 2 diabetes mellitus Osteoarthritis Surgical History H/O ventral hernia repair History of ventral hernia repair Family History Mother Alzheimers disease Father Aneurysm Brother [place] (myocardial infarction) Sister Parkinsons disease Social History marital status: unknown household members: family, children and none Smoking Status: Never smoker alcohol intake: never substance use type: does not use Discharge Plan Discharge Plan Patient Disposition: Home Provider Discharge Comment: You were admitted to the hospital with constipation. This improved with therapies and you continue to have bowel movements and are tolerating a diet. You were found to have a UTI, please complete full course of antibiotics. I would hold bowel laxitives for now, if you go 1 day without a bowel movement start miralax and senna. Please follow up with your PCP early next week if possible. Discharge orders & Medications Prescriptions: New docusate sodium [DOK] 100 mg Capsule 100 mg PO BID 30 Days Qty: 60 RF: 0 nitrofurantoin monohyd/m-cryst [Macrobid] 100 mg Capsule 100 mg PO BID 5 Days Qty: 10 RF: 0 Continued gabapentin [Neurontin] 300 MG capsule 300 mg PO HS Qty: 0 RF: 0 pantoprazole 40 MG tablet,delayed release (DR/EC) 40 mg PO BID Qty: 0 RF: 0 potassium chloride [Klor-Con 10] 10 MEQ tablet extended release 10 meq PO BID Qty: 0 RF: 0 docusate sodium 100 mg tablet 100 mg PO DAILY RF: 0 irbesartan 300 mg tablet 300 mg PO DAILY RF: 0 polyethylene glycol 3350 [Miralax] 17 gram/dose powder 17 gram PO DAILY PRN (Reason: Constipation) RF: 0 doxycycline hyclate 100 mg Capsule 100 mg PO BID RF: 0 clopidogrel 75 mg Tablet 75 mg PO DAILY RF: 0 ranitidine HCl [Zantac] 300 mg Tablet 300 mg PO BEDTIME RF: 0 simvastatin 20 mg Tablet 20 mg PO QPM RF: 0 fluticasone propionate [Flonase Allergy Relief] 50 mcg/actuation [place],Suspension 2 spray INTRANASAL DAILY RF: 0 cholecalciferol (vitamin D3) [Vitamin D3] 5,000 unit Tablet 5,000 unit PO DAILY RF: 0 oxycodone 5 mg tablet 5 mg PO QID PRN (Reason: pain) Qty: 30 RF: 0 magnesium citrate Solution 300 ml PO DAILY PRN (Reason: constipation) Qty: 296 RF: 0 amitriptyline 50 mg Tablet 50 - 100 mg PO BEDTIME PRN (Reason: Sleep) RF: 0 meclizine 25 mg tablet 25 mg PO TID PRN (Reason: dizziness) Qty: 20 RF: 0 guaifenesin [Mucinex] 600 mg Tablet Extended Release 12hr 600 mg PO BID RF: 0 Follow up/Referrals: Rochelle Clements MD [Primary Care Provider] - Diet/Activity/Treatments Diet: Diet as Tolerated Activity: As tolerated Discharge Data Primary Care Provider: Rochelle Clements Attending Provider: Britni Patel VTE Deep Vein Thrombosis/Pulmonary Embolism Present on Admission: Yes
[2020-08-22] MEDS: DOCUSATE 100 MG CAPSULE PO (09:31)
[2020-08-22] MEDS: polyethylene glycoL 3350 17 GM POWD.PACK PO (09:31)
[2020-08-22] MEDS: metroNIDAZOLE 500 MG TABLET PO (09:31)
--- NOTE | 2020-08-22 11:13 | CM.DPNOTE ---
DC Note Met w/patient, reviewed DCP for today. Patient's son Blaise is transporting her home today. Patient states she is indp. in all ADLs, friends and family typically assist w/transport and grocery shopping/errands. Patient takes a taxi as needed. Patient explains my house is a mess right now and says she has raised 20+ foster children (w/spouse, who 3 yrs ago) and continues to want to help people out by giving them a place to stay in my big house. Patient has a couple living with her, they pay rent, her grand dtr, and a friend that robertson his trailer on the property. Patient denies feeling taken advantage of and denies abuse from any friends/family. Patient denies need for HH, states she has had a cg x2 weekly through [facility] and she (cg) just quit patient says she is waiting on a new cg to start. Patient feels confident she will get her needs met by friends and family assisting her. 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 Plan: Home w/friends and family to assist, family to transport. Patient denies needs from this [employer] at this time JW
[2020-08-22 12:00] VITALS: BP 134/88; PULSE 98; RESP 16; TEMP 36.4; O2SAT 94
--- NOTE | 2020-08-26 19:58 | PC.NURSE ---
Late Entry; NS infusion initiated at 08/21 at 05:59, stopped per MD order at 14:00.
== END 2020-08-22 15:00 | disposition home or self-care (01) ==
LOC: ED 01:49 → AC 05:11 → ICU 05:50 → AC 17:23
PROVIDERS: Admitting Provider Nurse Practitioner Family; Emergency Provider Emergency Medicine; PCP Internal Medicine; Referring Provider Emergency Medicine; Visit Provider Nurse Practitioner Family
DX: K59.00 Constipation, unspecified (principal); R11.2 Nausea with vomiting, unspecified; N39.0 Urinary tract infection, site not specified; B96.4 Proteus (mirabilis) (morganii) as the cause of diseases classified elsewhere; Z79.01 Long term (current) use of anticoagulants; I48.91 Unspecified atrial fibrillation; Z86.73 Personal history of transient ischemic attack (TIA), and cerebral infarction without residual deficits; K21.9 Gastro-esophageal reflux disease without esophagitis; D50.9 Iron deficiency anemia, unspecified; Z99.3 Dependence on wheelchair; Z89.612 Acquired absence of left leg above knee; Z20.822 Contact with and (suspected) exposure to COVID-19
CPT/HCPCS: 36415; 51702; 74019; 74177; 80053; 81001; 81003; 81015; 83605; 83690; 85007; 85025; 87077; 87086; 87186; 87635; 87797; 96361; 96374; 96375; 96376; 99284; C9803; G0378; J1170; J2405; Q9967

== ENCOUNTER 2021-01-11 16:16 | Emergency (ER) | payer OTHER, SELFPAY ==
[2020-08-21 06:06] VITALS: BMI 23.2
[2021-01-11 16:32] VITALS: BP 178/92; PULSE 129; RESP 20; TEMP 37.6; O2SAT 95; BMI 21.6
--- NOTE | 2021-01-11 16:58 | DI.RAD.S_ITS ---
PROCEDURE: XR CHEST 1V INDICATIONS: cough TECHNIQUE: One view of the chest was acquired. COMPARISON: [facility], CR, XR CHEST 2V, 06/10/2020, 9:24. FINDINGS: Surgical changes and devices: None. Lungs and pleura: There are linear opacities redemonstrated within the medial lung bases compatible with atelectasis. No definite acute consolidation elsewhere. No pleural effusions or pneumothorax. Mediastinum: A large hiatal hernia is redemonstrated. Heart size is normal. Bones and chest wall: No suspicious bony lesions. Overlying soft tissues appear unremarkable. IMPRESSION: 1. Large hiatal hernia with associated medial bibasilar opacities likely representing atelectasis. 2. No definite acute consolidation. Dictated by: Ezra Quiros M.D. on 01/11/2021 at 16:19 Approved by: Ezra Quiros M.D. on 01/11/2021 at 16:20
--- NOTE | 2021-01-11 17:00 | ED.GENADULT ---
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 She has inhalers that she has used in the past but does not regularly use inhalers. She notes that the cough has been slightly productive she has been somewhat nauseated increasingly weak not noticing palpitations. She notes that her heart rate will go from slow to fast relatively quickly presumably due to her atrial fibrillation. She typically has minimal sensation of discomfort from this. She notes that her voice is significantly more hoarse and she is having difficulty swallowing. She has not been vaccinated for COVID. She is not complaining of vomiting, abdominal pain, diarrhea. She has no lower extremity edema. Related Data Home Medications Medication Instructions Recorded Confirmed gabapentin 300 mg capsule 300 mg PO HS #0 04/23/16 08/21/20 (Neurontin) pantoprazole 40 mg tablet,delayed 40 mg PO BID #0 04/23/16 08/21/20 release potassium chloride 10 mEq 10 meq PO BID #0 04/23/16 08/21/20 tablet,extended release (Klor-Con) cholecalciferol (vitamin D3) 125 5,000 unit PO DAILY 07/06/17 08/21/20 mcg (5,000 unit) tablet (Vitamin D3) clopidogrel 75 mg tablet 75 mg PO DAILY 07/06/17 08/21/20 doxycycline hyclate 100 mg capsule 100 mg PO BID 07/06/17 08/21/20 fluticasone propionate 50 2 spray INTRANASAL DAILY 07/06/17 08/21/20 mcg/actuation nasal spray,suspension (Flonase Allergy Relief) ranitidine HCl 300 mg tablet 300 mg PO BEDTIME 07/06/17 08/21/20 (Zantac) simvastatin 20 mg tablet 20 mg PO QPM 07/06/17 08/21/20 amitriptyline 50 mg tablet 50 - 100 mg PO BEDTIME PRN 02/27/18 08/21/20 docusate sodium 100 mg tablet 100 mg PO DAILY 10/10/19 08/21/20 irbesartan 300 mg tablet 300 mg PO DAILY 10/10/19 01/17/20 polyethylene glycol 3350 17 17 gram PO DAILY PRN 10/10/19 08/21/20 gram/dose oral powder (Miralax) guaifenesin 600 mg tablet, 600 mg PO BID 08/21/20 08/21/20 extended release 12 hr (Mucinex) Previous Rx's Medication Instructions Recorded oxycodone 5 mg tablet 5 mg PO QID PRN #30 tab 10/17/19 meclizine 25 mg tablet 25 mg PO TID PRN #20 tab 07/19/20 magnesium citrate 300 ml PO DAILY PRN #296 ml 08/17/20 Allergies Allergy/AdvReac Type Severity Reaction Status Date / Time vancomycin Allergy Intermediate Verified 01/11/21 16:32 fluticasone Allergy Unknown Verified 01/11/21 16:32 procaine Allergy Unknown Verified 01/11/21 16:32 cefuroxime Allergy Verified 01/11/21 16:32 clarithromycin Allergy Verified 01/11/21 16:32 levofloxacin Allergy Verified 01/11/21 16:32 Penicillins Allergy Rash Verified 01/11/21 16:32 salmeterol Allergy Verified 01/11/21 16:32 fentanyl AdvReac Severe Confusion Verified 01/11/21 16:32 codeine AdvReac Unknown Headache Verified 01/11/21 16:32 Review of Systems Review of Systems Narrative: Remainder of complete review of systems is otherwise unremarkable except for that included in the HPI. Patient History Medical History Amputation of lower limb Asthma Atrial fibrillation Charc?t's arthropathy due to secondary diabetes Diabetes Diabetic gastropathy GERD (gastroesophageal reflux disease) Hearing loss Hearing loss History of gastric polyp History of left above knee amputation History of lower gastrointestinal bleeding History of recurrent TIAs Hyperlipidemia associated with type 2 diabetes mellitus Hypertension Iron deficiency anemia Morgellons disease Non-insulin dependent type 2 diabetes mellitus Osteoarthritis Surgical History H/O ventral hernia repair History of ventral hernia repair Family History Mother Alzheimers disease Father Aneurysm Brother [place] (myocardial infarction) Sister Parkinsons disease Social History marital status: unknown household members: family, children and none Smoking Status: Never smoker alcohol intake: never substance use type: does not use Smoking Status: Never smoker alcohol intake frequency: 0-2 drinks per day Substance Use Type: does not use Exam Narrative Exam Narrative: General: Frail appearing woman in no acute distress. Able to give a complete and coherent history. HEENT: Moist mucous membranes, normal sclera with reactive pupils, no significant pharyngeal erythema or cervical adenopathy Neck: No JVD, supple Respiratory: Lungs mild scattered wheeze and right basilar rhonchi. Full and symmetrical air movement Cardiac: Rapid rhythm but no murmurs no bruits Abdomen: Soft, nontender, good bowel tones, no flank pain Skin: Warm and dry, no rashes Neurologic: Grossly neurologically intact with no obvious asymmetries or abnormalities Extremities: No trauma, well perfused right lower extremity. Unremarkable left above knee amputation. Psych: Cooperative, appropriate insight and affect Initial Vital Signs Initial Vital Signs: Vital Signs Temperature 99.7 F H 01/11/21 16:32 Pulse Rate 129 H 01/11/21 16:32 Respiratory Rate 20 01/11/21 16:32 Blood Pressure 178/92 H 01/11/21 16:32 Pulse Oximetry 95 01/11/21 16:32 Course Orders Ordered: ED Orders 01/11/21 16:58 XR chest 1V Stat 01/11/21 16:59 Urinalysis and Microscopic Stat 01/11/21 17:15 COVID19 -Nasal swab/Pre-Proc Stat Complete Blood Count AUTO DIFF Stat Comprehensive Metabolic Panel Stat Lactate (Lactic Acid) Stat Magnesium Stat NT-proBNP (BNP-Adult 18+) Stat Respiratory Panel (Film Array) Stat Troponin I Stat 01/11/21 17:50 Blood Culture Stat 01/11/21 18:31 EKG-12 Lead Stat Vital Signs Vital signs: Vital Signs - 8 hr 01/11/21 16:32 01/11/21 17:25 Temperature 99.7 F H Pulse Rate 129 H 122 H Respiratory Rate 20 20 Blood Pressure 178/92 H 137/77 Pulse Oximetry 95 97 Medical Decision Making Lab Data Result diagrams: 01/11/21 17:15 01/11/21 17:15 Labs: Lab Results 01/11/21 01/11/21 01/11/21 Range/Units 17:15 17:15 17:15 WBC 13.0 H (4.5-11.0) X10^3/uL RBC 4.85 (4.0-5.2) X10^6/uL Hgb 13.5 (12.0-16.0) g/dL Hct 40.6 (36-46) % MCV 83.7 (80-100) fL MCH 27.9 (26-34) PG MCHC 33.3 (30-36) % RDW 18.1 H (11.6-14.8) % Plt Count 207 (150-400) X10^3/uL Neut % (Auto) 87.4 H (50-75) % Lymph % (Auto) 5.9 L (25-40) % [place] % (Auto) 5.2 (3-14) % Eos % (Auto) 1.1 L (2-4) % Baso % (Auto) 0.4 (0-2) % Neut # (Auto) 07644 H (1078-3806) /uL Lymph # (Auto) 800 L (2578-4903) /uL [place] # (Auto) 700 (0-900) /uL Eos # (Auto) 100 (0-450) /uL Baso # (Auto) 100 (0-100) /uL Sodium 135 L (137-145) mmol/L Potassium 4.5 (3.4-5.1) mmol/L Chloride 99 (98-107) mmol/L Carbon Dioxide 28 (22-32) mmol/L BUN 18 H (7-17) mg/dL Creatinine 0.65 (0.52-1.04) mg/dL Estimated GFR > 60.0 (>60) mL/min BUN/Creatinine Ratio 27.7 H (6-22) Glucose 106 (80-110) mg/dL Lactate 1.0 (0.7-2.1) mmol/L Calcium 9.9 (8.4-10.2) mg/dL Magnesium 1.8 (1.6-2.3) mg/dL Total Bilirubin 0.5 (0.2-1.3) mg/dL AST 26 (14-36) IU/L ALT 16 (<35) IU/L Alkaline Phosphatase 106 (38-126) U/L Troponin I < 0.012 (0.01-0.034) ng/mL NT-Pro-B Natriuret Pep 290 (<450) pg/mL Total Protein 7.2 (6.3-8.2) g/dL Albumin 4.3 (3.5-5.0) g/dL Globulin 2.9 (1.7-4.1) g/dL Albumin/Globulin Ratio 1.5 (1.0-2.8) Chlamy pneumoniae PCR (Not Detect) Adenovirus (PCR) (Not Detect) B. pertussis DNA (PCR) (Not Detecte) B.parapertussis DNA PCR (Not Detecte) Coronavirus OC43 (PCR) (Not Detect) Coronavirus HKU1 (PCR) (Not Detect) Coronavirus 229E (PCR) (Not Detect) SARS-CoV-2 (PCR) (Negative) Coronavirus NL63 (PCR) (Not Detect) Human Metapneumovir PCR (Not Detect) Influenza Type A (PCR) (Not Detect) Influenza Type B (PCR) (Not Detect) M. pneumoniae (PCR) (Not Detect) Parainfluenza 1 (PCR) (Not Detect) Parainfluenza 2 (PCR) (Not Detect) Parainfluenza 3 (PCR) (Not Detect) Parainfluenza 4 (PCR) (Not Detect) RSV (PCR) (Not Detect) Entero/Rhino (PCR) (Not Detect) 01/11/21 01/11/21 Range/Units 17:15 17:15 WBC (4.5-11.0) X10^3/uL RBC (4.0-5.2) X10^6/uL Hgb (12.0-16.0) g/dL Hct (36-46) % MCV (80-100) fL MCH (26-34) PG MCHC (30-36) % RDW (11.6-14.8) % Plt Count (150-400) X10^3/uL Neut % (Auto) (50-75) % Lymph % (Auto) (25-40) % [place] % (Auto) (3-14) % Eos % (Auto) (2-4) % Baso % (Auto) (0-2) % Neut # (Auto) (5898-8715) /uL Lymph # (Auto) (8212-0919) /uL [place] # (Auto) (0-900) /uL Eos # (Auto) (0-450) /uL Baso # (Auto) (0-100) /uL Sodium (137-145) mmol/L Potassium (3.4-5.1) mmol/L Chloride (98-107) mmol/L Carbon Dioxide (22-32) mmol/L BUN (7-17) mg/dL Creatinine (0.52-1.04) mg/dL Estimated GFR (>60) mL/min BUN/Creatinine Ratio (6-22) Glucose (80-110) mg/dL Lactate (0.7-2.1) mmol/L Calcium (8.4-10.2) mg/dL Magnesium (1.6-2.3) mg/dL Total Bilirubin (0.2-1.3) mg/dL AST (14-36) IU/L ALT (<35) IU/L Alkaline Phosphatase (38-126) U/L Troponin I (0.01-0.034) ng/mL NT-Pro-B Natriuret Pep (<450) pg/mL Total Protein (6.3-8.2) g/dL Albumin (3.5-5.0) g/dL Globulin (1.7-4.1) g/dL Albumin/Globulin Ratio (1.0-2.8) Chlamy pneumoniae PCR Not detected (Not Detect) Adenovirus (PCR) Not detected (Not Detect) B. pertussis DNA (PCR) Not detected (Not Detecte) B.parapertussis DNA PCR Not detected (Not Detecte) Coronavirus OC43 (PCR) Not detected (Not Detect) Coronavirus HKU1 (PCR) Not detected (Not Detect) Coronavirus 229E (PCR) Not detected (Not Detect) SARS-CoV-2 (PCR) Negative Not detected (Negative) Coronavirus NL63 (PCR) Not detected (Not Detect) Human Metapneumovir PCR Not detected (Not Detect) Influenza Type A (PCR) Not detected (Not Detect) Influenza Type B (PCR) Not detected (Not Detect) M. pneumoniae (PCR) Not detected (Not Detect) Parainfluenza 1 (PCR) Not detected (Not Detect) Parainfluenza 2 (PCR) Not detected (Not Detect) Parainfluenza 3 (PCR) Not detected (Not Detect) Parainfluenza 4 (PCR) Not detected (Not Detect) RSV (PCR) Not detected (Not Detect) Entero/Rhino (PCR) Not detected (Not Detect) Imaging Data Chest x-ray: Radiologist's Impression: FINDINGS:? ? Surgical changes and devices:? None.? ? Lungs and pleura:? There are linear opacities redemonstrated within the medial lung bases compatible with atelectasis.? No definite acute consolidation elsewhere.? No pleural effusions or pneumothorax.? ? Mediastinum:? A large hiatal hernia is redemonstrated.? Heart size is normal.? ? Bones and chest wall:? No suspicious bony lesions.? Overlying soft tissues appear unremarkable.? ? IMPRESSION:? ? 1. Large hiatal hernia with associated medial bibasilar opacities likely representing atelectasis. ? 2. No definite acute consolidation.? ? ? Dictated by: Ezra Quiros M.D. on 01/11/2021 at 16:19? ?? ECG Data Interpretation: Sinus rhythm at a rate of 72 No acute ischemic changes MDM Narrative Medical decision making narrative: 85-year-old woman with paroxysmal atrial fibrillation presents with atrial fibrillation, hoarseness sore throat and concerns for sepsis or developing pneumonia. She converts to sinus rhythm while in the emergency department. PCR panel is unremarkable there is no evidence of strep throat, COVID, cervical adenopathy. With her hoarseness she likelyhas a viral upper respiratory infection but is oxygenating appropriately and not tachypneic. On further questioning she does describe some difficulty swallowing a pill last night felt like it scratched her throat and she ended up sleeping propped upright much of the evening. She is not having any dysphagia symptoms other than the posterior pharyngeal pain today. There Is no evidence of acute coronary syndrome, pneumothorax or consolidated pneumonia on chest x-ray. At this point reassurance is given and she is safe for home discharge Discharge Plan Departure Patient Disposition: Home Clinical Impression: Acute viral syndrome, Pill esophagitis, Paroxysmal A-fib Instructions: DI for Esophagitis, DI for Viral Syndrome Activity Restrictions/Additional Instructions: Thank you for coming in today With your hoarse voice and a mild cough I believe that you do have a virus and that it will resolve without any further intervention. You do not have COVID or the flu. There is no sign of bacterial infection in your throat or a bacterial pneumonia. With the pill that got stuck yesterday sometimes they do leave a bit of burning sensation in your throat and I suspect that is contributing to your symptoms as well. I would encourage using Tylenol as needed for pain or low-grade fevers. Please make sure you are staying well hydrated. If you have worsening signs or symptoms please return to the emergency room and I am happy to re-evaluate Prescriptions: No Action gabapentin [Neurontin] 300 MG capsule 300 mg PO HS Qty: 0 0RF Label Comments: increase gradually to 2-3 capsules prn Rx Instructions: Pt unsure of doseage pantoprazole 40 MG tablet,delayed release (DR/EC) 40 mg PO BID Qty: 0 0RF potassium chloride [Klor-Con 10] 10 MEQ tablet extended release 10 meq PO BID Qty: 0 0RF docusate sodium 100 mg tablet 100 mg PO DAILY 0RF irbesartan 300 mg tablet 300 mg PO DAILY 0RF polyethylene glycol 3350 [Miralax] 17 gram/dose powder 17 gram PO DAILY PRN (Reason: Constipation) 0RF doxycycline hyclate 100 mg Capsule 100 mg PO BID 0RF clopidogrel 75 mg Tablet 75 mg PO DAILY 0RF ranitidine HCl [Zantac] 300 mg Tablet 300 mg PO BEDTIME 0RF simvastatin 20 mg Tablet 20 mg PO QPM 0RF fluticasone propionate [Flonase Allergy Relief] 50 mcg/actuation [place],Suspension 2 spray INTRANASAL DAILY 0RF cholecalciferol (vitamin D3) [Vitamin D3] 5,000 unit Tablet 5,000 unit PO DAILY 0RF oxycodone 5 mg tablet 5 mg PO QID PRN (Reason: pain) Qty: 30 0RF magnesium citrate Solution 300 ml PO DAILY PRN (Reason: constipation) Qty: 296 0RF amitriptyline 50 mg Tablet 50 - 100 mg PO BEDTIME PRN (Reason: Sleep) 0RF meclizine 25 mg tablet 25 mg PO TID PRN (Reason: dizziness) Qty: 20 0RF guaifenesin [Mucinex] 600 mg Tablet Extended Release 12hr 600 mg PO BID 0RF Referrals: Rochelle Clements MD [Primary Care Provider] -
[2021-01-11 17:25] VITALS: BP 137/77; PULSE 122; RESP 20; O2SAT 97
[2021-01-11 17:34] LABS: Add Manual Diff / Slide Review NO; Basophils Absolute Auto 100 /uL (0-100); Basophils Percent Auto 0.4 % (0-2); Eosinophils Absolute Auto 100 /uL (0-450); Eosinophils Percent Auto 1.1 % (2-4); Hematocrit 40.6 % (36-46); Hemoglobin 13.5 g/dL (12.0-16.0); Lymphocytes Absolute Auto 800 /uL (1100-4500); Lymphocytes Percent Auto 5.9 % (25-40); Mean Corpuscular HGB Conc 33.3 % (30-36); Mean Corpuscular Hemoglobin 27.9 PG (26-34); Mean Corpuscular Volume 83.7 fL (80-100); Monocytes Absolute Auto 700 /uL (0-900); Monocytes Percent Auto 5.2 % (3-14); Neutrophils Absolute Auto 11400 /uL (1500-7000); Neutrophils Percent Auto 87.4 % (50-75); Platelet Count 207 X10^3/uL (150-400); Red Blood Cell Count 4.85 X10^6/uL (4.0-5.2); Red Cell Distribution Width 18.1 % (11.6-14.8)
--- NOTE | 2021-01-11 17:34 | PC.NURSE ---
unable to provide UA at this time. Pt will try again
[2021-01-11 17:39] LABS: Alanine Aminotransferase 16 IU/L (<35); Albumin 4.3 g/dL (3.5-5.0); Albumin Globulin Ratio 1.5 (1.0-2.8); Alkaline Phosphatase 106 U/L (38-126); Aspartate Aminotransferase 26 IU/L (14-36); BUN Creatinine Ratio 27.7 (6-22); Bilirubin Total 0.5 mg/dL (0.2-1.3); Blood Urea Nitrogen 18 mg/dL (7-17); Calcium 9.9 mg/dL (8.4-10.2); Carbon Dioxide 28 mmol/L (22-32); Chloride 99 mmol/L (98-107); Estimated Glomerular Filt Rate > 60.0 mL/min (>60); Globulin 2.9 g/dL (1.7-4.1); Glucose 106 mg/dL (80-110); HEMOLYSIS < 15 (0-50); Magnesium 1.8 mg/dL (1.6-2.3); Potassium 4.5 mmol/L (3.4-5.1); Sodium 135 mmol/L (137-145); Total Protein 7.2 g/dL (6.3-8.2)
[2021-01-11 17:47] LABS: COVID19 -Nasal RAPID Negative (Negative)
[2021-01-11 17:51] LABS: NT-proBNP (BNP-Adult 18+) 290 pg/mL (<450); Troponin I < 0.012 ng/mL (0.01-0.034)
[2021-01-11 18:45] LABS: Adenovirus Not Detected (Not Detect); Coronavirus 229E Not Detected (Not Detect); Coronavirus HKU1 Not Detected (Not Detect); Coronavirus NL 63 Not Detected (Not Detect); Coronavirus OC43 Not Detected (Not Detect); Human Metapneumovirus Not Detected (Not Detect); Human Rhinovirus/Enterovirus Not Detected (Not Detect); Influenza A Not Detected (Not Detect); Influenza B Not Detected (Not Detect); Parainfluenza Virus 1 Not Detected (Not Detect); SARS- CoV-2 Not Detected (Not Detecte)
[2021-01-11 18:46] LABS: B. parapertussis Not Detected (Not Detecte); Bordetella pertussis Not Detected (Not Detecte); Chlamydophila pneumoniae Not Detected (Not Detect); Mycoplasma pneumoniae Not Detected (Not Detect); Parainfluenza Virus 2 Not Detected (Not Detect); Parainfluenza Virus 3 Not Detected (Not Detect); Parainfluenza Virus 4 Not Detected (Not Detect); Respiratory Syncytial Virus Not Detected (Not Detect)
[2021-01-11 19:01] VITALS: BP 151/74; PULSE 91; RESP 18; O2SAT 95
[2021-01-11 19:31] VITALS: TEMP 36.6
== END 2021-01-11 19:42 | disposition home or self-care (01) ==
PROVIDERS: Emergency Provider Emergency Medicine; PCP Internal Medicine
DX: B34.9 Viral infection, unspecified (principal); I48.0 Paroxysmal atrial fibrillation; Z79.01 Long term (current) use of anticoagulants; Z20.822 Contact with and (suspected) exposure to COVID-19
CPT/HCPCS: 36415; 71045; 80053; 83605; 83735; 83880; 84484; 85025; 87040; 87633; 87635; 93005; 93010; 99283; 99284; C9803

== ENCOUNTER 2021-03-17 20:20 | Emergency (ER) | payer OTHER, SELFPAY ==
[2020-08-21 06:06] VITALS: BMI 23.2
[2021-03-17] VITALS (9 sets, daily range): BP systolic 115–160; BP diastolic 64–87; PULSE 66–89; RESP 22; TEMP 37.7; O2SAT 94–97; BMI 23.7
[2021-03-17 21:20] LABS: COVID19 -Nasal RAPID POSITIVE (Negative)
--- NOTE | 2021-03-17 21:32 | DI.RAD.S_ITS ---
PROCEDURE: XR CHEST 1V INDICATIONS: covid, weakness TECHNIQUE: One view of the chest was acquired. COMPARISON: [facility], CR, XR CHEST 1V, 01/11/2021, 16:59. FINDINGS: Surgical changes and devices: None. Lungs and pleura: Linear right basilar airspace opacities most consistent with atelectasis. No focal consolidation or mass. No pneumothorax or pleural effusion. Mediastinum: Heart size is enlarged. The aorta is tortuous. Bones and chest wall: No suspicious bony lesions. Overlying soft tissues appear unremarkable. IMPRESSION: 1. Right basilar atelectasis versus early pneumonia. 2. Cardiomegaly. Dictated by: Jhon Flores M.D. on 03/17/2021 at 22:06 Approved by: Jhon Flores M.D. on 03/17/2021 at 22:09
[2021-03-17] MEDS: ACETAMINOPHEN 325 MG TABLET 650 MG PO (21:39)
[2021-03-17 21:46] LABS: Add Manual Diff / Slide Review NO; Basophils Absolute Auto 0 /uL (0-100); Basophils Percent Auto 0.2 % (0-2); Eosinophils Absolute Auto 0 /uL (0-450); Hematocrit 42.3 % (36-46); Lymphocytes Absolute Auto 500 /uL (1100-4500); Lymphocytes Percent Auto 9.8 % (25-40); Mean Corpuscular HGB Conc 33.1 % (30-36); Mean Corpuscular Hemoglobin 29.1 PG (26-34); Mean Corpuscular Volume 87.8 fL (80-100); Monocytes Absolute Auto 400 /uL (0-900); Monocytes Percent Auto 7.1 % (3-14); Neutrophils Absolute Auto 4700 /uL (1500-7000); Neutrophils Percent Auto 82.9 % (50-75); Platelet Count 162 X10^3/uL (150-400); Red Blood Cell Count 4.82 X10^6/uL (4.0-5.2); Red Cell Distribution Width 14.2 % (11.6-14.8); White Blood Cell Count 5.6 X10^3/uL (4.5-11.0)
--- NOTE | 2021-03-17 21:46 | PC.NURSE ---
Pt reports she lives with grandaughter. Per EMS, family reports pt has been confused today. Pt oriented at triage/assessment. Pt roomate recently positive for COVID so pt was swabbed
[2021-03-17 21:51] LABS: Alanine Aminotransferase 15 IU/L (<35); Albumin Globulin Ratio 1.3 (1.0-2.8); Alkaline Phosphatase 92 U/L (38-126); Aspartate Aminotransferase 31 IU/L (14-36); BUN Creatinine Ratio 14.5 (6-22); Bilirubin Total 0.6 mg/dL (0.2-1.3); Blood Urea Nitrogen 9 mg/dL (7-17); Calcium 9.2 mg/dL (8.4-10.2); Carbon Dioxide 32 mmol/L (22-32); Chloride 95 mmol/L (98-107); Estimated Glomerular Filt Rate > 60.0 mL/min (>60); Globulin 3.2 g/dL (1.7-4.1); Glucose 109 mg/dL (80-110); HEMOLYSIS < 15 (0-50); Magnesium 1.8 mg/dL (1.6-2.3); Sodium 131 mmol/L (137-145); Total Protein 7.2 g/dL (6.3-8.2)
[2021-03-17 21:52] LABS: Lactate (Lactic Acid) 1.4 mmol/L (0.7-2.1)
[2021-03-17 22:03] LABS: Troponin I < 0.012 ng/mL (0.01-0.034)
[2021-03-17 22:08] LABS: Procalcitonin 0.07 ng/mL (<0.5)
[2021-03-17 22:42] LABS: NT-proBNP (BNP-Adult 18+) 416 pg/mL (<450)
[2021-03-17 23:55] LABS: Appearance Urine UA CLOUDY; Bilirubin Urine UA NEGATIVE (NEGATIVE); Color Urine UA YELLOW; Glucose Urine UA NEGATIVE (Negative); Ketones Urine UA 1+ (NEGATIVE); Leukocyte Esterase Urine UA 1+ (NEGATIVE); Nitrite Urine UA POSITIVE (Negative); Occult Blood Urine UA 3+ (Negative); Protein Urine UA 1+ (Negative); Specific Gravity Urine UA 1.015 (1.000-1.035); Urobilinogen Urine UA 0.2 E.U./dL (0.2)
[2021-03-18] VITALS (8 sets, daily range): BP systolic 109–136; BP diastolic 55–76; PULSE 72–97; O2SAT 93–97
[2021-03-18 00:01] LABS: pH Urine UA 6.5 (4.5-8.0)
[2021-03-18 00:02] LABS: RBC Urine 30-100/HPF (0-5/HPF); WBC Urine 1-5/HPF (0-5/HPF)
[2021-03-18 00:03] LABS: Bacteria Urine Many (>30); Squamous Epithelial Cell Urine 1-5 /HPF (0-5/HPF)
[2021-03-18 00:04] LABS: Culture Indicated Urine Specimen Cultured
--- NOTE | 2021-03-18 00:56 | ED_ITS ---
HPI - General Adult General Chief complaint: Altered Mental Status Stated complaint: Confused Time Seen by Provider: 03/18/21 00:56 Source: patient Mode of arrival: EMS History of Present Illness HPI narrative: 85-year-old woman with a history of hypertension, atrial fibrillation on Plavix who presents today with complaints of increasing weakness and fatigue for the past week. She does not describe fever, cough, vomiting, diarrhea, abdominal pain, chest pain. She is not COVID vaccinated because she states she has chronic bronchitis. She lives in her own home with a granddaughter and a on couple that live with her that can help care for her. Related Data Home Medications Medication Instructions Recorded Confirmed gabapentin 300 mg capsule 300 mg PO HS #0 04/23/16 08/21/20 (Neurontin) pantoprazole 40 mg tablet,delayed 40 mg PO BID #0 04/23/16 08/21/20 release potassium chloride 10 mEq 10 meq PO BID #0 04/23/16 08/21/20 tablet,extended release (Klor-Con) cholecalciferol (vitamin D3) 125 5,000 unit PO DAILY 07/06/17 08/21/20 mcg (5,000 unit) tablet (Vitamin D3) clopidogrel 75 mg tablet 75 mg PO DAILY 07/06/17 08/21/20 doxycycline hyclate 100 mg capsule 100 mg PO BID 07/06/17 08/21/20 fluticasone propionate 50 2 spray INTRANASAL DAILY 07/06/17 08/21/20 mcg/actuation nasal spray,suspension (Flonase Allergy Relief) ranitidine HCl 300 mg tablet 300 mg PO BEDTIME 07/06/17 08/21/20 (Zantac) simvastatin 20 mg tablet 20 mg PO QPM 07/06/17 08/21/20 amitriptyline 50 mg tablet 50 - 100 mg PO BEDTIME PRN 02/27/18 08/21/20 docusate sodium 100 mg tablet 100 mg PO DAILY 10/10/19 08/21/20 irbesartan 300 mg tablet 300 mg PO DAILY 10/10/19 01/17/20 polyethylene glycol 3350 17 17 gram PO DAILY PRN 10/10/19 08/21/20 gram/dose oral powder (Miralax) guaifenesin 600 mg tablet, 600 mg PO BID 08/21/20 08/21/20 extended release 12 hr (Mucinex) Previous Rx's Medication Instructions Recorded oxycodone 5 mg tablet 5 mg PO QID PRN #30 tab 10/17/19 meclizine 25 mg tablet 25 mg PO TID PRN #20 tab 07/19/20 magnesium citrate 300 ml PO DAILY PRN #296 ml 08/17/20 sulfamethoxazole 800 1 tab PO BID 7 Days #14 tab 03/18/21 mg-trimethoprim 160 mg tablet (Bactrim DS) Allergies Allergy/AdvReac Type Severity Reaction Status Date / Time vancomycin Allergy Intermediate Verified 01/11/21 16:32 fluticasone Allergy Unknown Verified 01/11/21 16:32 procaine Allergy Unknown Verified 01/11/21 16:32 cefuroxime Allergy Verified 01/11/21 16:32 clarithromycin Allergy Verified 01/11/21 16:32 levofloxacin Allergy Verified 01/11/21 16:32 Penicillins Allergy Rash Verified 01/11/21 16:32 salmeterol Allergy Verified 01/11/21 16:32 fentanyl AdvReac Severe Confusion Verified 01/11/21 16:32 codeine AdvReac Unknown Headache Verified 01/11/21 16:32 Review of Systems Review of Systems Narrative: Remainder of complete review of systems is otherwise unremarkable except for that included in the HPI. 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 GERD (gastroesophageal reflux disease) Hearing loss History of gastric polyp History of left above knee amputation History of lower gastrointestinal bleeding History of recurrent TIAs Hyperlipidemia associated with type 2 diabetes mellitus Hypertension Iron deficiency anemia Morgellons disease Osteoarthritis Surgical History H/O ventral hernia repair History of ventral hernia repair Family History Mother Alzheimers disease Father Aneurysm Brother PR (myocardial infarction) Sister Parkinsons disease Social History marital status: unknown household members: family, children and none Smoking Status: Never smoker alcohol intake: never substance use type: does not use Smoking Status: Never smoker alcohol intake frequency: 0-2 drinks per day Substance Use Type: does not use Exam Initial Vital Signs Initial Vital Signs: Vital Signs Temperature 99.9 F H 03/17/21 20:20 Pulse Rate 66 03/17/21 20:20 Respiratory Rate 22 03/17/21 20:20 Blood Pressure 123/87 03/17/21 20:20 Pulse Oximetry 94 03/17/21 20:20 General: Fatigued but in no acute distress. Able to give a complete and coherent history. Well-nourished well-developed HEENT: Moist mucous membranes, normal sclera with reactive pupils, Neck: No JVD, supple Respiratory: Lungs are clear to auscultation, no wheezing no rales no rhonchi. Full and symmetrical air movement Cardiac: Irregular rhythm but no murmurs no bruits Abdomen: Soft, nontender, good bowel tones, no flank pain Skin: Warm and dry, no rashes. Minor scabs and abrasions over the left anterior stiles Neurologic: Globally weak but Grossly neurologically intact with no obvious asymmetries or abnormalities Extremities: No trauma, well perfused. Above knee amputation on the right Psych: Cooperative, appropriate insight and affect Course Orders Ordered: ED Orders 03/17/21 20:20 COVID19 -Nasal swab/Pre-Proc Stat 03/17/21 21:00 Complete Blood Count AUTO DIFF Stat Comprehensive Metabolic Panel Stat Lactate (Lactic Acid) Stat Magnesium Stat NT-proBNP (BNP-Adult 18+) Stat Procalcitonin Stat Troponin I Stat 03/17/21 21:32 XR chest 1V Stat 03/17/21 21:39 Blood Culture Stat 03/17/21 23:53 Urinalysis and Microscopic Stat Urine Culture Stat Discontinued Medications Acetaminophen (Acetaminophen 325 Mg Tablet) 650 mg PO NOW ONE Stop: 03/17/21 21:31 Last Admin: 03/17/21 21:39 Dose: 650 mg Documented by: VENKATA Vital Signs Vital signs: Vital Signs - 8 hr 03/17/21 20:20 03/17/21 20:24 03/17/21 21:44 Temperature 99.9 F H Pulse Rate 66 66 69 Respiratory Rate 22 Blood Pressure 123/87 123/87 Pulse Oximetry 94 94 96 03/17/21 21:46 03/17/21 22:00 03/17/21 22:16 Temperature Pulse Rate 82 78 85 Respiratory Rate Blood Pressure 115/84 140/68 Pulse Oximetry 96 97 95 03/17/21 22:30 03/17/21 23:00 03/17/21 23:30 Temperature 99.8 F H Pulse Rate 89 75 76 Respiratory Rate Blood Pressure 140/71 160/66 H 138/64 Pulse Oximetry 95 94 96 03/18/21 00:00 03/18/21 00:30 03/18/21 01:00 Temperature Pulse Rate 77 90 72 Respiratory Rate Blood Pressure 136/63 127/60 Pulse Oximetry 96 03/18/21 01:08 Temperature Pulse Rate 75 Respiratory Rate Blood Pressure 118/58 L Pulse Oximetry 94 Medical Decision Making Lab Data Result diagrams: 03/17/21 21:00 03/17/21 21:00 Labs: Lab Results 03/17/21 03/17/21 03/17/21 Range/Units 20:20 21:00 21:00 WBC 5.6 (4.5-11.0) X10^3/uL RBC 4.82 (4.0-5.2) X10^6/uL Hgb 14.0 (12.0-16.0) g/dL Hct 42.3 (36-46) % MCV 87.8 (80-100) fL MCH 29.1 (26-34) PG MCHC 33.1 (30-36) % RDW 14.2 (11.6-14.8) % Plt Count 162 (150-400) X10^3/uL Neut % (Auto) 82.9 H (50-75) % Lymph % (Auto) 9.8 L (25-40) % [place] % (Auto) 7.1 (3-14) % Eos % (Auto) 0.0 L (2-4) % Baso % (Auto) 0.2 (0-2) % Neut # (Auto) 4700 (0548-8906) /uL Lymph # (Auto) 500 L (0082-2609) /uL [place] # (Auto) 400 (0-900) /uL Eos # (Auto) 0 (0-450) /uL Baso # (Auto) 0 (0-100) /uL Sodium 131 L (137-145) mmol/L Potassium 4.0 (3.4-5.1) mmol/L Chloride 95 L (98-107) mmol/L Carbon Dioxide 32 (22-32) mmol/L BUN 9 (7-17) mg/dL Creatinine 0.62 (0.52-1.04) mg/dL Estimated GFR > 60.0 (>60) mL/min BUN/Creatinine Ratio 14.5 (6-22) Glucose 109 (80-110) mg/dL Lactate (0.7-2.1) mmol/L Calcium 9.2 (8.4-10.2) mg/dL Magnesium 1.8 (1.6-2.3) mg/dL Total Bilirubin 0.6 (0.2-1.3) mg/dL AST 31 (14-36) IU/L ALT 15 (<35) IU/L Alkaline Phosphatase 92 (38-126) U/L Troponin I < 0.012 (0.01-0.034) ng/mL NT-Pro-B Natriuret Pep 416 (<450) pg/mL Total Protein 7.2 (6.3-8.2) g/dL Albumin 4.0 (3.5-5.0) g/dL Globulin 3.2 (1.7-4.1) g/dL Albumin/Globulin Ratio 1.3 (1.0-2.8) Procalcitonin 0.07 (<0.5) ng/mL Urine Color Urine Appearance Urine pH (4.5-8.0) Ur Specific [place] (1.000-1.035) Urine Protein (Negative) Urine Glucose (UA) (Negative) g/dL Urine Ketones (NEGATIVE) Urine Occult Blood (Negative) Urine Nitrate (Negative) Urine Bilirubin (NEGATIVE) Urine Urobilinogen (0.2) E.U./dL Ur Leukocyte Esterase (NEGATIVE) Urine RBC (0-5/HPF) Urine WBC (0-5/HPF) Ur Squamous Epith Cells (0-5/HPF) Urine Bacteria (None) Ur Culture Indicated? SARS-CoV-2 (PCR) Positive H (Negative) 03/17/21 03/17/21 Range/Units 21:00 23:53 WBC (4.5-11.0) X10^3/uL RBC (4.0-5.2) X10^6/uL Hgb (12.0-16.0) g/dL Hct (36-46) % MCV (80-100) fL MCH (26-34) PG MCHC (30-36) % RDW (11.6-14.8) % Plt Count (150-400) X10^3/uL Neut % (Auto) (50-75) % Lymph % (Auto) (25-40) % [place] % (Auto) (3-14) % Eos % (Auto) (2-4) % Baso % (Auto) (0-2) % Neut # (Auto) (5333-4736) /uL Lymph # (Auto) (7056-1088) /uL [place] # (Auto) (0-900) /uL Eos # (Auto) (0-450) /uL Baso # (Auto) (0-100) /uL Sodium (137-145) mmol/L Potassium (3.4-5.1) mmol/L Chloride (98-107) mmol/L Carbon Dioxide (22-32) mmol/L BUN (7-17) mg/dL Creatinine (0.52-1.04) mg/dL Estimated GFR (>60) mL/min BUN/Creatinine Ratio (6-22) Glucose (80-110) mg/dL Lactate 1.4 (0.7-2.1) mmol/L Calcium (8.4-10.2) mg/dL Magnesium (1.6-2.3) mg/dL Total Bilirubin (0.2-1.3) mg/dL AST (14-36) IU/L ALT (<35) IU/L Alkaline Phosphatase (38-126) U/L Troponin I (0.01-0.034) ng/mL NT-Pro-B Natriuret Pep (<450) pg/mL Total Protein (6.3-8.2) g/dL Albumin (3.5-5.0) g/dL Globulin (1.7-4.1) g/dL Albumin/Globulin Ratio (1.0-2.8) Procalcitonin (<0.5) ng/mL Urine Color Yellow Urine Appearance Cloudy Urine pH 6.5 (4.5-8.0) Ur Specific [place] 1.015 (1.000-1.035) Urine Protein 1+ H (Negative) Urine Glucose (UA) Negative (Negative) g/dL Urine Ketones 1+ H (NEGATIVE) Urine Occult Blood 3+ H (Negative) Urine Nitrate Positive H (Negative) Urine Bilirubin Negative (NEGATIVE) Urine Urobilinogen 0.2 (0.2) E.U./dL Ur Leukocyte Esterase 1+ H (NEGATIVE) Urine RBC 30-100/hpf H (0-5/HPF) Urine WBC 1-5/hpf (0-5/HPF) Ur Squamous Epith Cells 1-5 /hpf (0-5/HPF) Urine Bacteria Many (>30) H (None) Ur Culture Indicated? Specimen cultured SARS-CoV-2 (PCR) (Negative) Imaging Data Chest x-ray: Radiologist's Impression: FINDINGS:? ? Surgical changes and devices:? None.? ? Lungs and pleura:? Linear right basilar airspace opacities most consistent with atelectasis.? No focal consolidation or mass.? No pneumothorax or pleural effusion. ? Mediastinum:? Heart size is enlarged.? The aorta is tortuous. ? Bones and chest wall:? No suspicious bony lesions.? Overlying soft tissues appear unremarkable.? ? IMPRESSION:? 1. Right basilar atelectasis versus early pneumonia. 2. Cardiomegaly. ? ? Dictated by: Jhon Flores M.D. on 03/17/2021 at 22:06 ? ? Approved by: hJon Flores M.D. on 03/17/2021 at 22:09 ? MDM Narrative Medical decision making narrative: 85-year-old woman who is COVID positive with oxygen saturations in the upper 90s. Main symptom is fatigue at this point. She incidentally has what appears to be a bladder infection without evidence of pyelonephritis or sepsis. We discussed options and she is most comfortable with discharge home. There is currently no suggestion for stroke, acute coronary syndrome, significant electrolyte abnormalities or additional findings that would require hospitalization at this time. Did recommend that she check her home oxygen levels and if she is becoming more short of breath she certainly needs to return for further evaluation. In the meantime, her most recent bladder infection was Proteus that was essentially pansensitive. Given all of her allergies and sensitivities Septra is going to be the most appropriate choice for her bladder infection at this time. She is given a dose in the emergency department and wi ll ask her to complete a 7 day course. Did explain to her the importance of returning to the ER if she does have increasing respiratory difficulties. Discharge Plan Departure Patient Disposition: Home Clinical Impression: Pneumonia due to 2019 novel coronavirus, Urinary tract infection Instructions: DI for Urinary Tract Infection (UTI), DI for COVID-19 (Suspected or Confirmed ) Activity Restrictions/Additional Instructions: Thank you for coming in today You do have COVID. This is very likely the reason that you been sleeping so much the last week. Fortunately, your oxygen levels are in the upper 90s and you do not require hospitalization at this time. If you find that you are havin g more difficulty breathing, developing any chest pain or feeling worse overall it would be absolutely appropriate to return to the emergency department. I would recommend that you use a home oxygen monitor and if you notice your oxygen levels are consistently below 92% that you return to the emergency department You also have a bladder infection that does not look like it has spread to a kidney infection and is definitely not sepsis at this time. I am going to place you on Bactrim twice a day for the next 7 days. Your urine has been cultured and my choice of antibiotics is based on the bacteria found in your most recent bladder infection back in August of 2020. This prescription was electronically transmitted to [facility] If you feel that you are getting worse in any way, please return to the ER Prescriptions: New sulfamethoxazole-trimethoprim [Bactrim DS] 800-160 mg tablet 1 tab PO BID 7 Days Qty: 14 0RF No Action gabapentin [Neurontin] 300 MG capsule 300 mg PO HS Qty: 0 0RF Label Comments: increase gradually to 2-3 capsules prn Rx Instructions: Pt unsure of doseage pantoprazole 40 MG tablet,delayed release (DR/EC) 40 mg PO BID Qty: 0 0RF potassium chloride [Klor-Con 10] 10 MEQ tablet extended release 10 meq PO BID Qty: 0 0RF docusate sodium 100 mg tablet 100 mg PO DAILY 0RF irbesartan 300 mg tablet 300 mg PO DAILY 0RF polyethylene glycol 3350 [Miralax] 17 gram/dose powder 17 gram PO DAILY PRN (Reason: Constipation) 0RF doxycycline hyclate 100 mg Capsule 100 mg PO BID 0RF clopidogrel 75 mg Tablet 75 mg PO DAILY 0RF ranitidine HCl [Zantac] 300 mg Tablet 300 mg PO BEDTIME 0RF simvastatin 20 mg Tablet 20 mg PO QPM 0RF fluticasone propionate [Flonase Allergy Relief] 50 mcg/actuation [place],Suspension 2 spray INTRANASAL DAILY 0RF cholecalciferol (vitamin D3) [Vitamin D3] 5,000 unit Tablet 5,000 unit PO DAILY 0RF oxycodone 5 mg tablet 5 mg PO QID PRN (Reason: pain) Qty: 30 0RF magnesium citrate Solution 300 ml PO DAILY PRN (Reason: constipation) Qty: 296 0RF amitriptyline 50 mg Tablet 50 - 100 mg PO BEDTIME PRN (Reason: Sleep) 0RF meclizine 25 mg tablet 25 mg PO TID PRN (Reason: dizziness) Qty: 20 0RF guaifenesin [Mucinex] 600 mg Tablet Extended Release 12hr 600 mg PO BID 0RF Referrals: Rochelle Clements MD [Primary Care Provider] -
[2021-03-18] MEDS: TRIMETH/SULFA 160/800 (DS) TABLET 1 TAB PO (01:37)
== END 2021-03-18 02:04 | disposition home or self-care (01) ==
PROVIDERS: Emergency Provider Emergency Medicine; PCP Internal Medicine
DX: U07.1 COVID-19 (principal); J12.82 Pneumonia due to coronavirus disease 2019; N39.0 Urinary tract infection, site not specified
CPT/HCPCS: 36415; 71045; 80053; 81001; 83605; 83735; 83880; 84145; 84484; 85025; 87040; 87077; 87086; 87186; 87635; 99283; 99284; C9803

== ENCOUNTER 2021-03-19 16:09 | Emergency (ER) | payer OTHER, SELFPAY ==
[2020-08-21 06:06] VITALS: BMI 23.2
[2021-03-19] VITALS (8 sets, daily range): BP systolic 139–154; BP diastolic 64–98; PULSE 94–123; RESP 18–62; TEMP 37.9; O2SAT 91–94
--- NOTE | 2021-03-19 16:17 | DI.RAD.S_ITS ---
PROCEDURE: XR CHEST 1V INDICATIONS: flu-like symptoms TECHNIQUE: One view of the chest was acquired. COMPARISON: [facility], CR, XR CHEST 1V, 01/11/2021, 16:59. [facility], CR, XR CHEST 1V, 03/17/2021, 21:48. FINDINGS: Surgical changes and devices: None. Lungs and pleura: There are increased patchy airspace opacities within the lung bases, right greater than left. Bibasilar linear atelectasis also present. No pleural effusions or pneumothorax. Mediastinum: A large hiatal hernia is redemonstrated. Heart size is enlarged. Bones and chest wall: No suspicious bony lesions. Overlying soft tissues appear unremarkable. IMPRESSION: 1. Increased patchy airspace opacities, right greater than left, consistent with pneumonia given clinical history. 2. Large hiatal hernia redemonstrated. Dictated by: Ezra Quiros M.D. on 03/19/2021 at 16:37 Approved by: Ezra Quiros M.D. on 03/19/2021 at 16:38
--- NOTE | 2021-03-19 16:18 | ED.FEVER ---
HPI - Fever General Chief Complaint: Fever Stated Complaint: Covid+, declining mental status Time Seen by Provider: 03/19/21 16:11 Source: EMS Mode of arrival: EMS History of Present Illness HPI Narrative: 85-year-old woman with a history of hypertension, atrial fibrillation on Plavix who presents today with complaints of increasing weakness and fatigue. She was seen and evaluated yesterday under similar circumstances and found to have COVID. She is not vaccinated against COVID. Family is concerned that perhaps she is becoming more sick. Patient denies any chest pain or shortness of breath. She denies any nausea or vomiting but does have some decreased appetite. She is not dizzy or lightheaded but does feel a bit weak. Related Data Home Medications Medication Instructions Recorded Confirmed gabapentin 300 mg capsule 300 mg PO HS #0 04/23/16 08/21/20 (Neurontin) pantoprazole 40 mg tablet,delayed 40 mg PO BID #0 04/23/16 08/21/20 release potassium chloride 10 mEq 10 meq PO BID #0 04/23/16 08/21/20 tablet,extended release (Klor-Con) cholecalciferol (vitamin D3) 125 5,000 unit PO DAILY 07/06/17 08/21/20 mcg (5,000 unit) tablet (Vitamin D3) clopidogrel 75 mg tablet 75 mg PO DAILY 07/06/17 08/21/20 doxycycline hyclate 100 mg capsule 100 mg PO BID 07/06/17 08/21/20 fluticasone propionate 50 2 spray INTRANASAL DAILY 07/06/17 08/21/20 mcg/actuation nasal spray,suspension (Flonase Allergy Relief) ranitidine HCl 300 mg tablet 300 mg PO BEDTIME 07/06/17 08/21/20 (Zantac) simvastatin 20 mg tablet 20 mg PO QPM 07/06/17 08/21/20 amitriptyline 50 mg tablet 50 - 100 mg PO BEDTIME PRN 02/27/18 08/21/20 docusate sodium 100 mg tablet 100 mg PO DAILY 10/10/19 08/21/20 irbesartan 300 mg tablet 300 mg PO DAILY 10/10/19 01/17/20 polyethylene glycol 3350 17 17 gram PO DAILY PRN 10/10/19 08/21/20 gram/dose oral powder (Miralax) guaifenesin 600 mg tablet, 600 mg PO BID 08/21/20 08/21/20 extended release 12 hr (Mucinex) Previous Rx's Medication Instructions Recorded oxycodone 5 mg tablet 5 mg PO QID PRN #30 tab 10/17/19 meclizine 25 mg tablet 25 mg PO TID PRN #20 tab 07/19/20 magnesium citrate 300 ml PO DAILY PRN #296 ml 08/17/20 sulfamethoxazole 800 1 tab PO BID 7 Days #14 tab 03/18/21 mg-trimethoprim 160 mg tablet (Bactrim DS) Allergies Allergy/AdvReac Type Severity Reaction Status Date / Time vancomycin Allergy Intermediate Verified 03/19/21 16:17 fluticasone Allergy Unknown Verified 03/19/21 16:17 procaine Allergy Unknown Verified 03/19/21 16:17 cefuroxime Allergy Verified 03/19/21 16:17 clarithromycin Allergy Verified 03/19/21 16:17 levofloxacin Allergy Verified 03/19/21 16:17 Penicillins Allergy Rash Verified 03/19/21 16:17 salmeterol Allergy Verified 03/19/21 16:17 fentanyl AdvReac Severe Confusion Verified 03/19/21 16:17 codeine AdvReac Unknown Headache Verified 03/19/21 16:17 Review of Systems Review of Systems Narrative: GENERAL: See HPI HEENT: Denies sinus pain, ear pain, sore throat, difficulty swallowing, dizziness. RESPIRATORY: See HPI CARDIOVASCULAR: Denies chest pain, palpitations, orthopnea, edema, GASTROINTESTINAL: See HPI : Denies dysuria, frequency, incontinence, hematuria, urinary retention. MUSCULOSKELETAL: denies weakness, joint pain, or bony pain SKIN: Denies rash, skin lesions, or other NEUROLOGIC: Denies weakness, headache, numbness, change in speech, confusion, seizures, incoordination. PSYCHIATRIC: No concerning psychosocial issues. 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 GERD (gastroesophageal reflux disease) Hearing loss History of gastric polyp History of left above knee amputation History of lower gastrointestinal bleeding History of recurrent TIAs Hyperlipidemia associated with type 2 diabetes mellitus Hypertension Iron deficiency anemia Morgellons disease Osteoarthritis Surgical History H/O ventral hernia repair History of ventral hernia repair Family History Mother Alzheimers disease Father Aneurysm Brother HI (myocardial infarction) Sister Parkinsons disease Social History marital status: unknown household members: family, children and none Smoking Status: Never smoker alcohol intake: never substance use type: does not use Smoking Status: Never smoker alcohol intake frequency: 0-2 drinks per day Substance Use Type: does not use Exam Narrative Exam Narrative: GENERAL: [85 year old patient appears stated age. Well-developed patient, in mild distress. HEAD: Atraumatic. Normocephalic. EYES: Pupils equal round and reactive. Extraocular motions intact. No scleral icterus. No injection or drainage. ENT: Nose without bleeding, purulent drainage. Throat without erythema, tonsillar hypertrophy or exudate. Airway patent. NECK: Trachea midline. Non tender CARDIOVASCULAR: Regular rate and rhythm without murmurs, gallops, or rubs. RESPIRATORY: Decreased breath sounds bilaterally, faint crackles and right greater than left base, no hypoxemia. No significant work of breathing such is use of accessory muscles or conversational dyspnea GASTROINTESTINAL: Abdomen soft, non-tender, nondistended. EXTREMITIES: No edema or joint tenderness. BACK: Nontender without deformity or crepitance. No flank tenderness. NEURO: AOx3. SKIN: No rash or erythema of visible areas Initial Vital Signs Initial Vital Signs: Vital Signs Temperature 100.2 F H 03/19/21 16:14 Pulse Rate 99 H 03/19/21 16:14 Respiratory Rate 18 03/19/21 16:14 Blood Pressure 139/98 H 03/19/21 16:14 Pulse Oximetry 93 03/19/21 16:14 Course Orders Ordered: ED Orders 03/19/21 16:17 XR chest 1V Stat 03/19/21 16:42 C-Reactive Protein Quant Stat Complete Blood Count AUTO DIFF Stat Comprehensive Metabolic Panel Stat D Dimer Stat Ferritin Stat Lactate Dehydrogenase Stat NT-proBNP (BNP-Adult 18+) Stat Procalcitonin Stat Troponin & CK Cardiac Panel Stat 03/19/21 17:35 CT angio chest PE protocol Stat Discontinued Medications Amitriptyline HCl (Amitriptyline 25 Mg Tablet) 100 mg PO NOW ONE Stop: 03/19/21 17:46 Last Admin: 03/19/21 18:04 Dose: 100 mg Documented by: RISHI Sodium Chloride (Normal Saline 0.9%) 500 mls @ 1,000 mls/hr IV BOLUS ONE Stop: 03/19/21 16:45 Last Infusion: 03/19/21 17:18 Dose: 0 mls/hr Documented by: Admin: 03/19/21 16:35 Dose: 1,000 mls/hr Documented by: RISHI Sodium Chloride (Normal Saline 0.9%) 500 mls @ 1,000 mls/hr IV BOLUS ONE Stop: 03/19/21 18:02 Last Infusion: 03/19/21 18:27 Dose: 0 mls/hr Documented by: Admin: 03/19/21 17:50 Dose: 1,000 mls/hr Documented by: RISHI Vital Signs Vital signs: Vital Signs - 8 hr 03/19/21 16:14 03/19/21 16:15 03/19/21 16:30 Temperature 100.2 F H Pulse Rate 99 H 99 H 100 H Respiratory Rate 18 30 H 32 H Blood Pressure 139/98 H 139/98 H 153/93 H Pulse Oximetry 93 91 91 03/19/21 17:00 03/19/21 17:01 03/19/21 17:30 Temperature Pulse Rate 113 H 94 H 122 H Respiratory Rate 42 H 57 H 62 H Blood Pressure 154/64 H Pulse Oximetry 93 93 93 03/19/21 17:31 03/19/21 18:00 Temperature Pulse Rate 123 H 94 H Respiratory Rate 56 H Blood Pressure 151/74 H Pulse Oximetry 94 94 MDM - Fever Lab Data Result diagrams: 03/19/21 16:42 03/19/21 16:42 Labs: Lab Results 03/19/21 03/19/21 03/19/21 Range/Units 16:42 16:42 16:42 WBC 6.2 (4.5-11.0) X10^3/uL RBC 4.36 (4.0-5.2) X10^6/uL Hgb 12.6 (12.0-16.0) g/dL Hct 37.6 (36-46) % MCV 86.3 (80-100) fL MCH 28.9 (26-34) PG MCHC 33.6 (30-36) % RDW 13.8 (11.6-14.8) % Plt Count 167 (150-400) X10^3/uL Neut % (Auto) 88.1 H (50-75) % Lymph % (Auto) 5.1 L (25-40) % [place] % (Auto) 5.7 (3-14) % Eos % (Auto) 0.1 L (2-4) % Baso % (Auto) 1.0 (0-2) % Neut # (Auto) 5400 (9273-9355) /uL Lymph # (Auto) 300 L (6893-5501) /uL [place] # (Auto) 300 (0-900) /uL Eos # (Auto) 0 (0-450) /uL Baso # (Auto) 100 (0-100) /uL D-Dimer 308 H (<230) ng/mL Sodium (137-145) mmol/L Potassium (3.4-5.1) mmol/L Chloride (98-107) mmol/L Carbon Dioxide (22-32) mmol/L BUN (7-17) mg/dL Creatinine (0.52-1.04) mg/dL Estimated GFR (>60) mL/min BUN/Creatinine Ratio (6-22) Glucose (80-110) mg/dL Calcium (8.4-10.2) mg/dL Ferritin (11-264) ng/mL Total Bilirubin (0.2-1.3) mg/dL AST (14-36) IU/L ALT (<35) IU/L Alkaline Phosphatase (38-126) U/L Lactate Dehydrogenase (313-618) U/L Total Creatine Kinase (30-135) U/L CK-MB (CK-2) CK-MB (CK-2) Rel Index Troponin I (0.01-0.034) ng/mL C-Reactive Protein (<1.0) mg/dL NT-Pro-B Natriuret Pep (<450) pg/mL Total Protein (6.3-8.2) g/dL Albumin (3.5-5.0) g/dL Globulin (1.7-4.1) g/dL Albumin/Globulin Ratio (1.0-2.8) Procalcitonin 0.16 (<0.5) ng/mL 03/19/21 Range/Units 16:42 WBC (4.5-11.0) X10^3/uL RBC (4.0-5.2) X10^6/uL Hgb (12.0-16.0) g/dL Hct (36-46) % MCV (80-100) fL MCH (26-34) PG MCHC (30-36) % RDW (11.6-14.8) % Plt Count (150-400) X10^3/uL Neut % (Auto) (50-75) % Lymph % (Auto) (25-40) % [place] % (Auto) (3-14) % Eos % (Auto) (2-4) % Baso % (Auto) (0-2) % Neut # (Auto) (9760-0699) /uL Lymph # (Auto) (3726-7901) /uL [place] # (Auto) (0-900) /uL Eos # (Auto) (0-450) /uL Baso # (Auto) (0-100) /uL D-Dimer (<230) ng/mL Sodium 129 L (137-145) mmol/L Potassium 4.3 (3.4-5.1) mmol/L Chloride 95 L (98-107) mmol/L Carbon Dioxide 32 (22-32) mmol/L BUN 17 (7-17) mg/dL Creatinine 0.96 (0.52-1.04) mg/dL Estimated GFR 55.4 L (>60) mL/min BUN/Creatinine Ratio 17.7 (6-22) Glucose 90 (80-110) mg/dL Calcium 8.8 (8.4-10.2) mg/dL Ferritin 122 (11-264) ng/mL Total Bilirubin 0.5 (0.2-1.3) mg/dL AST 31 (14-36) IU/L ALT 13 (<35) IU/L Alkaline Phosphatase 85 (38-126) U/L Lactate Dehydrogenase 425 (313-618) U/L Total Creatine Kinase 60 (30-135) U/L CK-MB (CK-2) TNP CK-MB (CK-2) Rel Index TNP Troponin I < 0.012 (0.01-0.034) ng/mL C-Reactive Protein 16.8 H (<1.0) mg/dL NT-Pro-B Natriuret Pep 203 (<450) pg/mL Total Protein 6.3 (6.3-8.2) g/dL Albumin 3.5 (3.5-5.0) g/dL Globulin 2.8 (1.7-4.1) g/dL Albumin/Globulin Ratio 1.3 (1.0-2.8) Procalcitonin (<0.5) ng/mL MDM Narrative Medical decision making narrative: Patient has a very reassuring history and physical exam, she was recently diagnosed with COVID and though she has very little in terms of complaints her family wished her to be evaluated. She states she feels fine, she demonstrates no signs of increased work of breathing, need for supplemental oxygen or hypoxemia. Labs are reassuring, she does feel a bit restless which she states usually improves with amitriptyline hence decision to order it here. She is given fluids and feels better, return precautions discussed and questions answered to her apparent satisfaction Discharge Plan Departure Patient Disposition: Home Clinical Impression: COVID Instructions: DI for COVID-19 (Suspected or Confirmed ) Activity Restrictions/Additional Instructions: *You have been diagnosed with [ COVID-19] *What to do: * per recommendations from the CDC and the [facility] Department of Health * stay home except to get medical care. Restrict activities outside your home, except for getting medical care. Do not go to work, school, or public areas. Avoid using public transportation, ride sharing, or taxis. * separate yourself from other people in your home. * call ahead before visiting your doctor * Wear a facemask * Cover your coughs and sneezes * Clean your hands often * Avoid sharing household items * Clean all high-touch services every day * Monitor your symptoms and seek prompt medical attention if your illness is worsening, particularly with difficulty in breathing. You may discontinue your isolation when: 1. You have been fever-free for at least 24 hours without the use of fever reducing medication, AND 2. Your symptoms are getting better, AND 3. At least 5 days have passed since symptoms first appeared 4. If you have fever, continue to stay home until fever resolves Individuals with laboratory confirmed COVID-19 who have not had any symptoms may discontinue home isolation when at least 5 days have passed since the date of their first COVID-19 diagnostic test and have had no subsequent illness You should notifiy any friends and family that have been in close contact *If up to date on COVID Vaccines, then they do not need to quarantine unless symptoms develop. Get tested on day 5 (or sooner if symptoms develop). Take precautions and watch for symptoms until day 10 *If NOT up to date on COVID Vaccines, then CDC recommends quarantine for at least 5 full days. Wear a well fitted mask at home if you must be around others. If they develop symptoms they should get tested. If they remain asymptomatic they should get tested on day 5. They should take precautions and monitor for symptoms until day 10. Prescriptions: No Action gabapentin [Neurontin] 300 MG capsule 300 mg PO HS Qty: 0 0RF Label Comments: increase gradually to 2-3 capsules prn Rx Instructions: Pt unsure of doseage pantoprazole 40 MG tablet,delayed release (DR/EC) 40 mg PO BID Qty: 0 0RF potassium chloride [Klor-Con 10] 10 MEQ tablet extended release 10 meq PO BID Qty: 0 0RF docusate sodium 100 mg tablet 100 mg PO DAILY 0RF irbesartan 300 mg tablet 300 mg PO DAILY 0RF polyethylene glycol 3350 [Miralax] 17 gram/dose powder 17 gram PO DAILY PRN (Reason: Constipation) 0RF doxycycline hyclate 100 mg Capsule 100 mg PO BID 0RF clopidogrel 75 mg Tablet 75 mg PO DAILY 0RF ranitidine HCl [Zantac] 300 mg Tablet 300 mg PO BEDTIME 0RF simvastatin 20 mg Tablet 20 mg PO QPM 0RF fluticasone propionate [Flonase Allergy Relief] 50 mcg/actuation [place],Suspension 2 spray INTRANASAL DAILY 0RF cholecalciferol (vitamin D3) [Vitamin D3] 5,000 unit Tablet 5,000 unit PO DAILY 0RF oxycodone 5 mg tablet 5 mg PO QID PRN (Reason: pain) Qty: 30 0RF magnesium citrate Solution 300 ml PO DAILY PRN (Reason: constipation) Qty: 296 0RF sulfamethoxazole-trimethoprim [Bactrim DS] 800-160 mg tablet 1 tab PO BID 7 Days Qty: 14 0RF amitriptyline 50 mg Tablet 50 - 100 mg PO BEDTIME PRN (Reason: Sleep) 0RF meclizine 25 mg tablet 25 mg PO TID PRN (Reason: dizziness) Qty: 20 0RF guaifenesin [Mucinex] 600 mg Tablet Extended Release 12hr 600 mg PO BID 0RF Referrals: Rochelle Clements MD [Primary Care Provider] -
[2021-03-19] MEDS: SODIUM CHLORIDE 0.9% 500 ML 1000 ML IV ×2 (16:35→17:50)
[2021-03-19 17:00] LABS: Add Manual Diff / Slide Review NO; Basophils Absolute Auto 100 /uL (0-100); Eosinophils Absolute Auto 0 /uL (0-450); Eosinophils Percent Auto 0.1 % (2-4); Hematocrit 37.6 % (36-46); Hemoglobin 12.6 g/dL (12.0-16.0); Lymphocytes Absolute Auto 300 /uL (1100-4500); Lymphocytes Percent Auto 5.1 % (25-40); Mean Corpuscular HGB Conc 33.6 % (30-36); Mean Corpuscular Hemoglobin 28.9 PG (26-34); Mean Corpuscular Volume 86.3 fL (80-100); Monocytes Absolute Auto 300 /uL (0-900); Monocytes Percent Auto 5.7 % (3-14); Neutrophils Absolute Auto 5400 /uL (1500-7000); Neutrophils Percent Auto 88.1 % (50-75); Platelet Count 167 X10^3/uL (150-400); Red Blood Cell Count 4.36 X10^6/uL (4.0-5.2); Red Cell Distribution Width 13.8 % (11.6-14.8); White Blood Cell Count 6.2 X10^3/uL (4.5-11.0)
[2021-03-19 17:05] LABS: D Dimer 308 ng/mL (<230)
[2021-03-19 17:17] LABS: Alanine Aminotransferase 13 IU/L (<35); Albumin 3.5 g/dL (3.5-5.0); Albumin Globulin Ratio 1.3 (1.0-2.8); Alkaline Phosphatase 85 U/L (38-126); Aspartate Aminotransferase 31 IU/L (14-36); BUN Creatinine Ratio 17.7 (6-22); Bilirubin Total 0.5 mg/dL (0.2-1.3); Blood Urea Nitrogen 17 mg/dL (7-17); Calcium 8.8 mg/dL (8.4-10.2); Carbon Dioxide 32 mmol/L (22-32); Chloride 95 mmol/L (98-107); Creatine Kinase 60 U/L (30-135); Estimated Glomerular Filt Rate 55.4 mL/min (>60); Globulin 2.8 g/dL (1.7-4.1); Glucose 90 mg/dL (80-110); HEMOLYSIS < 15 (0-50); Lactate Dehydrogenase 425 U/L (313-618); Potassium 4.3 mmol/L (3.4-5.1); Sodium 129 mmol/L (137-145); Total Protein 6.3 g/dL (6.3-8.2)
[2021-03-19 17:27] LABS: NT-proBNP (BNP-Adult 18+) 203 pg/mL (<450); Troponin I < 0.012 ng/mL (0.01-0.034)
[2021-03-19 17:30] LABS: C-Reactive Protein Quant 16.8 mg/dL (<1.0)
[2021-03-19 17:32] LABS: Procalcitonin 0.16 ng/mL (<0.5)
--- NOTE | 2021-03-19 17:35 | DI.CT.S_ITS ---
PROCEDURE: CT ANGIO CHEST PE PROTOCOL INDICATIONS: tachypnea, tachycardia, SOB, hypoxemia TECHNIQUE: After the administration of intravenous contrast, 2 mm thick sections acquired from the pulmonary apices to the posterior costophrenic angles. 3-dimensional maximum intensity projection (MIP) coronal and sagittal reformats were then acquired through the thorax. For radiation dose reduction, the following was used: automated exposure control, adjustment of mA and/or kV according to patient size. COMPARISON: [facility], CT, CT ABDOMEN PELVIS W CON, 08/21/2020, 2:27. [facility], CR, XR CHEST 1V, 03/19/2021, 16:16. [facility], CT, CT ANGIO CHEST PE PROTOCOL, 02/27/2018, 13:06. FINDINGS: Image quality: Good. Respiratory motion. Pulmonary arteries: Pulmonary arteries are normal in size, and demonstrate no intraluminal filling defects to suggest central or segmental pulmonary embolism. Lungs and pleura: Mild bilateral patchy ground-glass airspace opacity. There is mild consolidative opacity at the right lung base. The central airways are clear. No pleural effusion. No pneumothorax. Mediastinum: Heart size is normal, without pericardial effusion. No mediastinal or hilar adenopathy. Thoracic aorta is normal in caliber and enhancement. Esophagus is normal in caliber, large paraesophageal hernia. Bones and chest wall: No suspicious bony lesions. Ribs and thoracic spine appear intact throughout. Thyroid gland is unremarkable. No axillary or supraclavicular adenopathy. Abdomen: Visualized upper abdominal solid organs appear normal in the early arterial phase of enhancement. Cholecystectomy clips. IMPRESSION: 1. No pulmonary embolism. 2. Bilateral patchy airspace opacity. Findings in keeping with COVID-19 pneumonia. 3. Large paraesophageal hernia. Dictated by: Rickie Ray M.D. on 03/19/2021 at 18:00 Approved by: Rickie Ray M.D. on 03/19/2021 at 18:06
[2021-03-19 17:49] LABS: Ferritin 122 ng/mL (11-264)
[2021-03-19] MEDS: AMITRIPTYLINE 25 MG TABLET 100 MG PO (18:04)
--- NOTE | 2021-03-19 18:42 | PC.NURSE ---
Pts IV infiltrated. Coban applied and warm blanket applied.
== END 2021-03-19 18:44 | disposition home or self-care (01) ==
PROVIDERS: Emergency Provider Emergency Medicine; PCP Internal Medicine
DX: U07.1 COVID-19 (principal)
CPT/HCPCS: 36415; 71045; 71275; 80053; 82550; 82728; 83615; 83880; 84145; 84484; 85025; 85379; 86140; 96360; 96361; 99284; Q9967

== ENCOUNTER 2021-03-26 15:20 | Emergency (ER) | payer OTHER, SELFPAY ==
[2020-08-21 06:06] VITALS: BMI 23.2
[2021-03-26] VITALS (21 sets, daily range): BP systolic 137–184; BP diastolic 65–123; PULSE 85–118; RESP 18; TEMP 36.9; O2SAT 75–98
--- NOTE | 2021-03-26 16:03 | PC.NURSE ---
Patient sent by EMS for increasing lethargy and delusions. Patient denies delusions or hallucinations. AxOx3.
--- NOTE | 2021-03-26 16:09 | PC.NURSE ---
PIV attempt x2 unsuccessful. Pressure dressings applied.
--- NOTE | 2021-03-26 16:18 | DI.RAD.S_ITS ---
PROCEDURE: XR CHEST 1V INDICATIONS: COVID + TECHNIQUE: One view of the chest was acquired. COMPARISON: [facility], CT, CT ABDOMEN PELVIS W CON, 08/21/2020, 2:27. [facility], CR, XR CHEST 1V, 03/17/2021, 21:48. [facility], CR, XR CHEST 1V, 01/11/2021, 16:59. [facility], CR, XR CHEST 1V, 03/19/2021, 16:16. FINDINGS: Surgical changes and devices: None. Lungs and pleura: Bilateral patchy interstitial type infiltrates are seen. No pleural effusions or pneumothorax. Mediastinum: The cardiac contours are within normal limits. The aorta demonstrates calcification and tortuosity. There is a moderate hiatal hernia. Bones and chest wall: No suspicious bony lesions. Age-appropriate bony degenerative changes are seen, particularly involving the right shoulder. Overlying soft tissues appear unremarkable. IMPRESSION: Patchy bilateral interstitial infiltrates are seen, which are clearly worse than on the 03/19/2021 examination and are consistent with the known clinical history of COVID pneumonia. Moderate hiatal hernia. Dictated by: Chacorta Salinas M.D. on 03/26/2021 at 15:31 Approved by: Chacorta Salinas M.D. on 03/26/2021 at 15:33
[2021-03-26 17:10] LABS: Add Manual Diff / Slide Review NO; Basophils Absolute Auto 0 /uL (0-100); Basophils Percent Auto 0.4 % (0-2); D Dimer 510 ng/mL (<230); Eosinophils Absolute Auto 0 /uL (0-450); Eosinophils Percent Auto 0.1 % (2-4); Hematocrit 40.3 % (36-46); Hemoglobin 13.4 g/dL (12.0-16.0); Lymphocytes Absolute Auto 300 /uL (1100-4500); Lymphocytes Percent Auto 4.5 % (25-40); Mean Corpuscular HGB Conc 33.3 % (30-36); Mean Corpuscular Hemoglobin 28.7 PG (26-34); Mean Corpuscular Volume 86.3 fL (80-100); Monocytes Absolute Auto 200 /uL (0-900); Monocytes Percent Auto 2.8 % (3-14); Neutrophils Absolute Auto 5700 /uL (1500-7000); Neutrophils Percent Auto 92.2 % (50-75); Platelet Count 299 X10^3/uL (150-400); Red Blood Cell Count 4.67 X10^6/uL (4.0-5.2); Red Cell Distribution Width 14.3 % (11.6-14.8); White Blood Cell Count 6.1 X10^3/uL (4.5-11.0)
[2021-03-26 17:11] LABS: Alanine Aminotransferase 22 IU/L (<35); Albumin 3.6 g/dL (3.5-5.0); Albumin Globulin Ratio 1.1 (1.0-2.8); Alkaline Phosphatase 134 U/L (38-126); Aspartate Aminotransferase 73 IU/L (14-36); BUN Creatinine Ratio 27.7 (6-22); Bilirubin Total 0.7 mg/dL (0.2-1.3); Blood Urea Nitrogen 18 mg/dL (7-17); Calcium 9.5 mg/dL (8.4-10.2); Carbon Dioxide 27 mmol/L (22-32); Chloride 102 mmol/L (98-107); Estimated Glomerular Filt Rate > 60.0 mL/min (>60); Globulin 3.4 g/dL (1.7-4.1); Glucose 95 mg/dL (80-110); Sodium 134 mmol/L (137-145)
[2021-03-26 17:22] LABS: NT-proBNP (BNP-Adult 18+) 659 pg/mL (<450); Troponin I < 0.012 ng/mL (0.01-0.034)
[2021-03-26 17:23] LABS: HEMOLYSIS 71 (0-50); Potassium 5.2 mmol/L (3.4-5.1)
--- NOTE | 2021-03-26 18:22 | ED_ITS ---
HPI - General Adult General Chief complaint: Upper Respiratory Symptoms Stated complaint: Fatigue and delusions x2 days Time Seen by Provider: 03/26/21 16:22 Source: patient and EMS Mode of arrival: EMS History of Present Illness HPI narrative: 85-year-old woman with history of hypertension, atrial fibrillation on Plavix, peripheral neuropathy, reflux and recent COVID diagnosis. She is on day 14 after symptoms. She did not require hospitalization. Today she is brought in by her granddaughter with complaints of increasing weakness, abdominal pain. She also notes that she had some black stool earlier today. She does not have a history of GI bleeding. She is complaining of mild abdominal pain has not have any emesis is not complaining of diarrhea. She is able speak in full sentences without any respiratory distress. She has a slight residual cough which is continuing to improve. Oxygen saturations on room air have been in the 94-98% range. She does note recent fatigue is not complaining of significant palpitations. 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 Related Data Home Medications Medication Instructions Recorded Confirmed gabapentin 300 mg capsule 300 mg PO HS #0 04/23/16 08/21/20 (Neurontin) pantoprazole 40 mg tablet,delayed 40 mg PO BID #0 04/23/16 08/21/20 release potassium chloride 10 mEq 10 meq PO BID #0 04/23/16 08/21/20 tablet,extended release (Klor-Con) cholecalciferol (vitamin D3) 125 5,000 unit PO DAILY 07/06/17 08/21/20 mcg (5,000 unit) tablet (Vitamin D3) clopidogrel 75 mg tablet 75 mg PO DAILY 07/06/17 08/21/20 doxycycline hyclate 100 mg capsule 100 mg PO BID 07/06/17 08/21/20 fluticasone propionate 50 2 spray INTRANASAL DAILY 07/06/17 08/21/20 mcg/actuation nasal spray,suspension (Flonase Allergy Relief) ranitidine HCl 300 mg tablet 300 mg PO BEDTIME 07/06/17 08/21/20 (Zantac) simvastatin 20 mg tablet 20 mg PO QPM 07/06/17 08/21/20 amitriptyline 50 mg tablet 50 - 100 mg PO BEDTIME PRN 02/27/18 08/21/20 docusate sodium 100 mg tablet 100 mg PO DAILY 10/10/19 08/21/20 irbesartan 300 mg tablet 300 mg PO DAILY 10/10/19 01/17/20 polyethylene glycol 3350 17 17 gram PO DAILY PRN 10/10/19 08/21/20 gram/dose oral powder (Miralax) guaifenesin 600 mg tablet, 600 mg PO BID 08/21/20 08/21/20 extended release 12 hr (Mucinex) Previous Rx's Medication Instructions Recorded oxycodone 5 mg tablet 5 mg PO QID PRN #30 tab 10/17/19 meclizine 25 mg tablet 25 mg PO TID PRN #20 tab 07/19/20 magnesium citrate 300 ml PO DAILY PRN #296 ml 08/17/20 ondansetron 4 mg disintegrating 4 mg PO Q8H PRN #14 tab 03/26/21 tablet Allergies Allergy/AdvReac Type Severity Reaction Status Date / Time vancomycin Allergy Intermediate Verified 03/26/21 15:49 fluticasone Allergy Unknown Verified 03/26/21 15:49 procaine Allergy Unknown Verified 03/26/21 15:49 cefuroxime Allergy Verified 03/26/21 15:49 clarithromycin Allergy Verified 03/26/21 15:49 levofloxacin Allergy Verified 03/26/21 15:49 Penicillins Allergy Rash Verified 03/26/21 15:49 salmeterol Allergy Verified 03/26/21 15:49 fentanyl AdvReac Severe Confusion Verified 03/26/21 15:49 codeine AdvReac Unknown Headache Verified 03/26/21 15:49 Review of Systems Review of Systems Narrative: Remainder of complete review of systems is otherwise unremarkable except for that included in the HPI. 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 COVID-19 GERD (gastroesophageal reflux disease) Hearing loss History of gastric polyp History of left above knee amputation History of lower gastrointestinal bleeding History of recurrent TIAs Hyperlipidemia associated with type 2 diabetes mellitus Hypertension Iron deficiency anemia Morgellons disease Osteoarthritis Surgical History H/O ventral hernia repair History of ventral hernia repair Family History Mother Alzheimers disease Father Aneurysm Brother [place] (myocardial infarction) Sister Parkinsons disease Social History marital status: unknown household members: family, children and none Smoking Status: Never smoker alcohol intake: never substance use type: does not use Smoking Status: Never smoker alcohol intake frequency: 0-2 drinks per day Substance Use Type: does not use Exam Initial Vital Signs Initial Vital Signs: Vital Signs Temperature 98.4 F 03/26/21 15:20 Pulse Rate 88 03/26/21 15:20 Respiratory Rate 18 03/26/21 15:20 Blood Pressure 137/65 03/26/21 15:20 Pulse Oximetry 94 03/26/21 15:20 General: Frail-appearing with good perfusion, able to speak in full sentences complaining abdominal pain HEENT: Moist mucous membranes, normal sclera with reactive pupils, Neck: No JVD, supple Respiratory: Lungs are clear to auscultation, no wheezing no rales no rhonchi. Full and symmetrical air movement Cardiac: Irregular at a rate of 88, no murmurs no bruits Abdomen: Soft, mild epigastric tenderness, good bowel tones, no flank pain Rectal exam: Initial exam absolutely no stool in the rectal vault and smear on globe is guaiac negative. With additional time to try and collect stool a small amount of brown stool non guaiac-positive is appreciated Skin: Warm and dry, no rashes Neurologic: Grossly neurologically intact with no obvious asymmetries or abnormalities Extremities: Below-knee amputation, remaining leg shows No trauma, well perfused Psych: Cooperative, appropriate insight and affect Course Orders Ordered: ED Orders 03/26/21 15:45 Complete Blood Count AUTO DIFF Stat Comprehensive Metabolic Panel Stat D Dimer Stat NT-proBNP (BNP-Adult 18+) Stat Troponin I Stat 03/26/21 15:55 Consult to [facility] - Dukey Rider Stat 03/26/21 16:18 Chest [XR chest 1V] Stat Heparin Sodium (Porcine) (Heparin Flush (Cl/Picc/Mid-Line) 50 Unit/5 Ml Syringe) 50 unit IV PRN PRN PRN Reason: Flush Last Admin: 03/26/21 18:01 Dose: 50 unit Documented by: FAISAL Hydromorphone HCl (Hydromorphone 0.5 Mg Inj) 0.5 mg IV Q15MIN PRN PRN Reason: Pain, Last Admin: 03/26/21 18:37 Dose: 0.5 mg Documented by: FAISAL Discontinued Medications Ondansetron HCl (Ondansetron 4 Mg/2 Ml Inj) 4 mg IV NOW ONE Stop: 03/26/21 18:31 Last Admin: 03/26/21 18:37 Dose: 4 mg Documented by: FAISAL Vital Signs Vital signs: Vital Signs - 8 hr 03/26/21 15:20 03/26/21 15:29 03/26/21 15:30 Temperature 98.4 F Pulse Rate 88 88 Respiratory Rate 18 Blood Pressure 137/65 137/65 Pulse Oximetry 94 75 L 03/26/21 16:00 03/26/21 16:30 03/26/21 17:00 Temperature Pulse Rate 86 102 H 104 H Respiratory Rate Blood Pressure Pulse Oximetry 88 L 95 98 03/26/21 17:20 03/26/21 17:30 03/26/21 18:00 Temperature Pulse Rate 85 103 H 106 H Respiratory Rate Blood Pressure 156/90 H 160/92 H Pulse Oximetry 96 98 96 03/26/21 18:30 03/26/21 18:31 03/26/21 19:00 Temperature Pulse Rate 108 H 102 H 109 H Respiratory Rate Blood Pressure 148/106 H Pulse Oximetry 94 93 97 03/26/21 19:30 03/26/21 20:00 03/26/21 20:01 Temperature Pulse Rate 108 H 117 H 118 H Respiratory Rate Blood Pressure 167/82 H 164/123 H Pulse Oximetry 97 97 97 03/26/21 20:25 03/26/21 20:30 03/26/21 21:00 Temperature Pulse Rate 115 H 111 H 102 H Respiratory Rate Blood Pressure 184/91 H 166/79 H 171/86 H Pulse Oximetry 95 95 96 03/26/21 21:30 Temperature Pulse Rate 102 H Respiratory Rate Blood Pressure 164/73 H Pulse Oximetry 96 Medical Decision Making Lab Data Result diagrams: 03/26/21 15:45 03/26/21 15:45 Labs: Lab Results 03/26/21 03/26/21 03/26/21 Range/Units 15:45 15:45 15:45 WBC 6.1 (4.5-11.0) X10^3/uL RBC 4.67 (4.0-5.2) X10^6/uL Hgb 13.4 (12.0-16.0) g/dL Hct 40.3 (36-46) % MCV 86.3 (80-100) fL MCH 28.7 (26-34) PG MCHC 33.3 (30-36) % RDW 14.3 (11.6-14.8) % Plt Count 299 (150-400) X10^3/uL Neut % (Auto) 92.2 H (50-75) % Lymph % (Auto) 4.5 L (25-40) % [place] % (Auto) 2.8 L (3-14) % Eos % (Auto) 0.1 L (2-4) % Baso % (Auto) 0.4 (0-2) % Neut # (Auto) 5700 (1568-2038) /uL Lymph # (Auto) 300 L (0825-4711) /uL [place] # (Auto) 200 (0-900) /uL Eos # (Auto) 0 (0-450) /uL Baso # (Auto) 0 (0-100) /uL D-Dimer 510 H (<230) ng/mL Sodium 134 L (137-145) mmol/L Potassium 5.2 H (3.4-5.1) mmol/L Chloride 102 (98-107) mmol/L Carbon Dioxide 27 (22-32) mmol/L BUN 18 H (7-17) mg/dL Creatinine 0.65 (0.52-1.04) mg/dL Estimated GFR > 60.0 (>60) mL/min BUN/Creatinine Ratio 27.7 H (6-22) Glucose 95 (80-110) mg/dL Calcium 9.5 (8.4-10.2) mg/dL Total Bilirubin 0.7 (0.2-1.3) mg/dL AST 73 H (14-36) IU/L ALT 22 (<35) IU/L Alkaline Phosphatase 134 H D (38-126) U/L Troponin I < 0.012 (0.01-0.034) ng/mL NT-Pro-B Natriuret Pep 659 H (<450) pg/mL Total Protein 7.0 (6.3-8.2) g/dL Albumin 3.6 (3.5-5.0) g/dL Globulin 3.4 (1.7-4.1) g/dL Albumin/Globulin Ratio 1.1 (1.0-2.8) D-dimer is slightly elevated at 510 however this is within normal range given her age at 85. Imaging Data Chest x-ray: Radiologist's Impression: FINDINGS:? ? Surgical changes and devices:? None.? ? Lungs and pleura:? Bilateral patchy interstitial type infiltrates are seen.? No pleural effusions or pneumothorax.? ? Mediastinum:? The cardiac contours are within normal limits. The aorta demonstrates calcification and tortuosity.? There is a moderate hiatal hernia. ? Bones and chest wall:? No suspicious bony lesions.? Age-appropriate bony degenerative changes are seen, particularly involving the right shoulder.? Overlying soft tissues appear unremarkable.? ? ? IMPRESSION:? Patchy bilateral interstitial infiltrates are seen, which are clearly worse than on the 03/19/2021 examination and are consistent with the known clinical history of COVID pneumonia.? ? Moderate hiatal hernia. ? ? Dictated by: Chacorta Salinas M.D. on 03/26/2021 at 15:31? ?? ECG Data Interpretation: Sinus rhythm with marked sinus arrhythmia rather than atrial fibrillation is appreciated today Rate is 99 No acute ischemic changes MDM Narrative Medical decision making narrative: 85-year-old woman on day 14 of COVID complains of weakness mild abdominal pain and brought in for further evaluation. Blood work is unremarkable. Chest x-ray suggests continued COVID. Oxygen saturations in the mid to upper 90s. She did report black stool however H&H is stable. Repeat attempts to obtain appropriate levels of stool were done and eventually a small amount of coag-negative brown stool was produced. She is feeling better after Zofran and at this time is safe for home discharge. I did have a brief discussion with her granddaughter, with whom she lives. Will see if we can make a med list available to her and have a granddaughter set up med PACs. Will also give her prescription for Zofran to use as it sounds like nausea has been the post COVID symptom that has been most concerning for her. Last her follow-up with her primary care physician. She is safe for home discharge Discharge Plan Departure Patient Disposition: Home Clinical Impression: Nausea, Pneumonia due to 2019 novel coronavirus Instructions: DI for Nausea -- Adult, DI for COVID-19 (Suspected or Confirmed ) Activity Restrictions/Additional Instructions: Thank you for coming in tonight It does sound like the nausea associated with your resolving COVID symptoms has been significantly troubling. I have given you Janee in the emergency department which helped significantly. I will give you a prescription to use this nausea medicine at home. Prescription was electronically transmitted to Ariela sheehan I have encouraged her granddaughter to help you set up all of your medications for a full week at a time to make sure that you are getting all of your appropriate medications. If you find that you are having worsening symptoms, vomiting any blood or coffee-ground looking emesis, have any black or bloody stool or feel that you are getting worse, you need to return to the emergency department I hope you continue to heal quickly Prescriptions: New ondansetron 4 mg tablet,disintegrating 4 mg PO Q8H PRN (Reason: nausea and vomiting) Qty: 14 0RF No Action gabapentin [Neurontin] 300 MG capsule 300 mg PO HS Qty: 0 0RF Label Comments: increase gradually to 2-3 capsules prn Rx Instructions: Pt unsure of doseage pantoprazole 40 MG tablet,delayed release (DR/EC) 40 mg PO BID Qty: 0 0RF potassium chloride [Klor-Con 10] 10 MEQ tablet extended release 10 meq PO BID Qty: 0 0RF docusate sodium 100 mg tablet 100 mg PO DAILY 0RF irbesartan 300 mg tablet 300 mg PO DAILY 0RF polyethylene glycol 3350 [Miralax] 17 gram/dose powder 17 gram PO DAILY PRN (Reason: Constipation) 0RF doxycycline hyclate 100 mg Capsule 100 mg PO BID 0RF clopidogrel 75 mg Tablet 75 mg PO DAILY 0RF ranitidine HCl [Zantac] 300 mg Tablet 300 mg PO BEDTIME 0RF simvastatin 20 mg Tablet 20 mg PO QPM 0RF fluticasone propionate [Flonase Allergy Relief] 50 mcg/actuation [place],Suspension 2 spray INTRANASAL DAILY 0RF cholecalciferol (vitamin D3) [Vitamin D3] 5,000 unit Tablet 5,000 unit PO DAILY 0RF oxycodone 5 mg tablet 5 mg PO QID PRN (Reason: pain) Qty: 30 0RF magnesium citrate Solution 300 ml PO DAILY PRN (Reason: constipation) Qty: 296 0RF amitriptyline 50 mg Tablet 50 - 100 mg PO BEDTIME PRN (Reason: Sleep) 0RF meclizine 25 mg tablet 25 mg PO TID PRN (Reason: dizziness) Qty: 20 0RF guaifenesin [Mucinex] 600 mg Tablet Extended Release 12hr 600 mg PO BID 0RF Referrals: Rochelle Clements MD [Primary Care Provider] -
[2021-03-26] MEDS: ONDANSETRON 4 MG/2 ML INJ IV (18:37)
[2021-03-26] MEDS: HYDROMORPHONE 0.5 MG INJ IV (18:37)
== END 2021-03-26 22:25 | disposition home or self-care (01) ==
PROVIDERS: Emergency Medicine; Emergency Provider Emergency Medicine; PCP Internal Medicine
DX: U07.1 COVID-19 (principal); J12.82 Pneumonia due to coronavirus disease 2019; R11.0 Nausea; Z88.5 Allergy status to narcotic agent
CPT/HCPCS: 71045; 80053; 83880; 84484; 85025; 85379; 93005; 93010; 96374; 96375; 99284; J1170; J1642; J2405